=== PATIENT | female | born 1990 | race Two or more races ===

== ENCOUNTER 2018-05-22 16:45 | Emergency (ER) | payer MEDICAID ==
[2018-05-22] MEDS ORDERED: NORMAL SALINE 1000 ML 1,000 ML IV ONE (17:04)
[2018-05-22] MEDS ORDERED: ONDANSETRON HCL INJ/PF 4 MG/2 ML SDV IV ONE ×2 (17:04→19:03)
[2018-05-22] MEDS ORDERED: KETOROLAC TROMETHAMINE INJ/PF 30 MG/1 ML SDV IV ONE (17:04)
--- NOTE | 2018-05-22 17:06 | ER Document Report ---
ED Medical Screen (RME) - General Chief Complaint: Diarrhea Stated Complaint: DIARRHEA Time Seen by Provider: 05/22/18 16:58 Notes: 28 years old female presents today with 4 day history of multiple loose stools, described as brown to green in color. Associated with nausea no vomiting. Had some abdominal cramps no pain. Denies any fever chills or other constitutional symptoms. Denies any dysuria frequency urgency. Denies any vaginal discharges. On examination-morbidly obese seems to be dehydrated. TRAVEL OUTSIDE OF THE [place] IN LAST 30 DAYS: No - Related Data Allergies/Adverse Reactions: oxycodone Allergy (Verified 05/22/18 16:48) Penicillins Allergy (Verified 05/22/18 16:48) Past Medical History - Social History Frequency of alcohol use: None Drug Abuse: None Renal/ Medical History: Denies: Hx Peritoneal Dialysis Psychiatric Medical History: Reports: Hx Depression Past Surgical History: Reports: Hx Appendectomy, Hx Tonsillectomy Physical Exam - Vital signs Vitals: Temp Pulse Resp BP Pulse Ox 99.2 F 91 18 127/80 H 98 05/22/18 16:49 05/22/18 16:49 05/22/18 16:49 05/22/18 16:49 05/22/18 16:49 Course - Vital Signs Vital signs: Temp Pulse Resp BP Pulse Ox 99.2 F 91 18 127/80 H 98 05/22/18 16:49 05/22/18 16:49 05/22/18 16:49 05/22/18 16:49 05/22/18 16:49 Doctor's Discharge - Discharge Referrals: KEVAN ALEJANDRE FNP-C [Primary Care Provider] - Follow up as needed
[2018-05-22 17:56] LABS: APPEARANCE,URINE SLIGHTLY-CLOUDY; BILIRUBIN,URINE NEGATIVE (NEGATIVE); COLOR,URINE YELLOW; GLUCOSE, URINE NEGATIVE (NEGATIVE); KETONES,URINE NEGATIVE (NEGATIVE); LEUKOCYTE ESTERASE,URINE NEGATIVE (NEGATIVE); NITRITE,URINE NEGATIVE (NEGATIVE); PROTEIN,URINE NEGATIVE (NEGATIVE); URINE SPECIFIC GRAVITY 1.017
[2018-05-22 17:57] LABS: ABSOLUTE BASOPHILS # (AUTO) 0.1 10^3/uL (0.0-0.2); ABSOLUTE EOSINOPHILS # (AUTO) 0.4 10^3/uL (0.0-0.6); ABSOLUTE LYMPHOCYTES (AUTO) 2.5 10^3/uL (0.5-4.7); ABSOLUTE MONOCYTES (AUTO) 0.7 10^3/uL (0.1-1.4); ABSOLUTE NEUT (AUTO) 5.2 10^3/uL (1.7-8.2); BASOPHILS % (AUTO) 0.6 % (0-2); EOSINOPHILS % (AUTO) 4.4 % (0-6); HEMATOCRIT 42.8 % (36.0-47.0); HEMOGLOBIN 14.4 g/dL (12.0-15.5); LYMPHOCYTES % (AUTO) 28.4 % (13-45); MEAN CORPUSCULAR HEMOGLOBIN 28.9 pg (27.0-33.4); MEAN CORPUSCULAR HGB CONC 33.8 g/dL (32.0-36.0); MEAN CORPUSCULAR VOLUME 86 fl (80-97); MONOCYTES % (AUTO) 7.6 % (3-13); PLATELET COUNT 374 10^3/uL (150-450); RED BLOOD COUNT 4.99 10^6/uL (3.72-5.28); RED CELL DISTRIBUTION WIDTH 13.9 % (11.5-14.0); TOTAL CELLS COUNTED % (AUTO) 100 %; WHITE BLOOD COUNT 8.9 10^3/uL (4.0-10.5)
[2018-05-22 18:14] LABS: ALANINE AMINOTRANSFERASE 117 U/L (9-52); ALBUMIN 4.7 g/dL (3.5-5.0); ALKALINE PHOSPHATASE 112 U/L (38-126); ANION GAP 11 (5-19); ASPARTATE AMINO TRANSFERASE 95 U/L (14-36); BILIRUBIN,DIRECT 0.3 mg/dL (0.0-0.4); BILIRUBIN,TOTAL 0.4 mg/dL (0.2-1.3); BLOOD UREA NITROGEN 6 mg/dL (7-20); CALCIUM 9.5 mg/dL (8.4-10.2); CARBON DIOXIDE 30 mmol/L (22-30); CHLORIDE 102 mmol/L (98-107); GLUCOSE 87 mg/dL (75-110); LIPASE 94.5 U/L (23-300); POTASSIUM 3.7 mmol/L (3.6-5.0); SODIUM 142.6 mmol/L (137-145); TOTAL PROTEIN 8.8 g/dL (6.3-8.2)
--- NOTE | 2018-05-22 18:21 | RADIOLOGY REPORT (SQ) ---
EXAM DESCRIPTION: ACUTE ABDOMEN SERIES COMPLETED DATE/TIME: 05/22/2018 6:04 pm REASON FOR STUDY: Acute abdominal pain COMPARISON: None. NUMBER OF VIEWS: Three views. TECHNIQUE: Frontal chest, supine abdomen and upright/ abdomen radiographic images acquired. LIMITATIONS: None. FINDINGS: CHEST: Lungs clear of infiltrates. FREE AIR: None. No abnormal gas collections. BOWEL GAS PATTERN: Nonobstructive pattern. No dilated loops or air fluid levels. CALCIFICATIONS: No suspicious calcifications. HARDWARE: None in the abdomen. SOFT TISSUES: No gross mass or suggestion of organomegaly. BONES: No acute fracture. No worrisome bone lesions. OTHER: No other significant finding. IMPRESSION: NO RADIOGRAPHIC EVIDENCE FOR ACUTE ABDOMINAL DISEASE. TECHNICAL DOCUMENTATION: JOB ID: [id number] [employer]- All Rights Reserved Reading location - IP/workstation name: [email or web address]
[2018-05-22] MEDS ORDERED: MORPHINE SULFATE 10 MG/ML INJ IV ONE (19:03)
--- NOTE | 2018-05-22 19:54 | RADIOLOGY REPORT (SQ) ---
EXAM DESCRIPTION: U/S ABDOMEN LIMITED W/O DOP COMPLETED DATE/TIME: 05/22/2018 7:45 pm REASON FOR STUDY: RUQ pain COMPARISON: None. TECHNIQUE: Dynamic and static grayscale images acquired of the abdomen and recorded on PACS. Additio nal selected color Doppler and spectral images recorded. LIMITATIONS: None. FINDINGS: PANCREAS: Poorly seen LIVER: No masses. Echotexture normal. LIVER VASCULATURE: Normal directional flow of the main portal vein and hepatic veins. GALLBLADDER: No stones. Normal wall thickness. No pericholecystic fluid. ULTRASOUND-DETECTED KELLY'S SIGN: Negative. INTRAHEPATIC DUCTS AND COMMON DUCT: CBD and intrahepatic ducts normal caliber. No filling defects. INFERIOR VENA CAVA: Normal flow. AORTA: No aneurysm. RIGHT KIDNEY: Normal size. Normal echogenicity. No solid or suspicious masses. No hydronephrosis. No calcifications. PERITONEAL AND RIGHT PLEURAL SPACE: No ascites or effusions. OTHER: No other significant findings. IMPRESSION: NORMAL RIGHT UPPER QUADRANT ULTRASOUND. TECHNICAL DOCUMENTATION: JOB ID: [id number] [employer]- All Rights Reserved Reading location - IP/workstation name: [email or web address]
[2018-05-22] MEDS ORDERED: ONDANSETRON ODT 4 MG TAB (6 TAB/ER DISP) PO PRN (20:41)
--- NOTE | 2018-05-22 20:49 | ER Document Report ---
ED GI/ - General Chief Complaint: Diarrhea Stated Complaint: DIARRHEA Time Seen by Provider: 05/22/18 16:58 TRAVEL OUTSIDE OF THE [place] IN LAST 30 DAYS: No - Related Data Allergies/Adverse Reactions: oxycodone Allergy (Verified 05/22/18 16:48) Penicillins Allergy (Verified 05/22/18 16:48) Past Medical History - Social History Smoking Status: Never Smoker Frequency of alcohol use: None Drug Abuse: None Patient has suicidal ideation: No Patient has homicidal ideation: No Renal/ Medical History: Denies: Hx Peritoneal Dialysis Psychiatric Medical History: Reports: Hx Depression Past Surgical History: Reports: Hx Appendectomy, Hx Tonsillectomy Physical Exam - Vital signs Vitals: Temp Pulse Resp BP Pulse Ox 99.2 F 91 18 127/80 H 98 05/22/18 16:49 05/22/18 16:49 05/22/18 16:49 05/22/18 16:49 05/22/18 16:49 Course - Vital Signs Vital signs: Temp Pulse Resp BP Pulse Ox 99.2 F 91 18 127/80 H 98 05/22/18 16:49 05/22/18 16:49 05/22/18 16:49 05/22/18 16:49 05/22/18 16:49 - Laboratory Result Diagrams: 05/22/18 17:24 05/22/18 17:24 Laboratory results interpreted by me: 05/22/18 05/22/18 17:24 17:24 BUN 6 L AST 95 H ALT 117 H Total Protein 8.8 H Urine Urobilinogen 2.0 H Discharge - Discharge Clinical Impression: Elevated LFTs Diarrhea Qualifiers: Diarrhea type: unspecified type Qualified Code(s): R19.7 - Diarrhea, unspecified Condition: Stable Disposition: HOME, SELF-CARE Additional Instructions: Abdominal Pain There are many causes of abdominal pain. Pain can mean a serious problem requiring surgery (such as appendicitis). It can also be an innocent problem that goes away on its own (such as a viral infection). Often, time must pass to determine the cause of pain. The physician does not feel that hospitalization is necessary, at present. Things may change within the next 24 hours. Call the doctor or come back for re- examination if any problems occur, such as: (1) Pain that becomes more severe, steady, or becomes concentrated in one specific area. Also, pain that is more severe with movement or coughing. (2) Vomiting that persists or becomes more frequent. (3) Blood in the vomitus, urine, or bowel movements. Blood in the stool may have a tarry or black appearance. (4) Shaking chills or fever greater than 100 degrees F. (5) The abdomen becomes more distended or swollen. (6) Bowel movements cease. (7) Failure to improve as expected. Your workup today was normal. Your gallbladder ultrasound was unremarkable. Your liver enzymes were elevated however he reports this is been a chronic issue over the last year. I am sending you with a outpatient lab slip for stool, if you continue having diarrhea please bring a sample to the lab. Keep hydrated with water or Gatorade. Follow-up with your primary care provider in the next 2-3 days for follow-up, return sooner if worsening. Prescriptions: Ondansetron [Zofran Odt 4 mg Tablet] 1 - 2 tab PO Q4H PRN #15 tab.rapdis PRN Reason: For Nausea/Vomiting Forms: Treatment of Relative/Child, Follow-Up Laboratory Testing Referrals: KEVAN ALEJANDRE FNP-C [Primary Care Provider] - Follow up as needed
[2018-05-22 20:56] VITALS: BP 111/67
== END 2018-05-22 21:15 | disposition home or self-care (01) ==
LOC: ER 16:45
DX: R19.7 Diarrhea, unspecified (principal); R79.89 Other specified abnormal findings of blood chemistry
CPT/HCPCS: 99284; 96374; 96375; 36415; 83690; 85025; 81025; 80053; 81001; 74022; 76705; J1885; J2270; J2405; J7030

== ENCOUNTER 2018-05-24 14:11 | Emergency (ER) | payer MEDICAID ==
[2018-05-24] MEDS ORDERED: NORMAL SALINE 1000 ML 1,000 ML IV PRN (15:03)
--- NOTE | 2018-05-24 15:04 | ER Document Report ---
ED Medical Screen (RME) - General Chief Complaint: GI Bleeding Stated Complaint: BLOOD IN STOOL Time Seen by Provider: 05/24/18 15:02 Notes: 28 years old female presents today with an episode of GI bleed during defecation , and the stool is dark brown to black in color. Feeling generally weak and tired. And left lower quadrant abdominal pain. Obesity, left lower quadrant tenderness TRAVEL OUTSIDE OF THE [place] IN LAST 30 DAYS: No - Related Data Allergies/Adverse Reactions: oxycodone Allergy (Verified 05/22/18 16:48) Penicillins Allergy (Verified 05/22/18 16:48) hydrocodone Adverse Reaction (Verified 05/24/18 14:14) Past Medical History Renal/ Medical History: Denies: Hx Peritoneal Dialysis Psychiatric Medical History: Reports: Hx Depression Past Surgical History: Reports: Hx Appendectomy, Hx Tonsillectomy Physical Exam - Vital signs Vitals: Temp Pulse Resp BP Pulse Ox 98.5 F 82 18 136/65 H 98 05/24/18 14:20 05/24/18 14:20 05/24/18 14:20 05/24/18 14:20 05/24/18 14:20 Course - Vital Signs Vital signs: Temp Pulse Resp BP Pulse Ox 98.5 F 82 18 136/65 H 98 05/24/18 14:20 05/24/18 14:20 05/24/18 14:20 05/24/18 14:20 05/24/18 14:20 Doctor's Discharge - Discharge Referrals: KEVAN ALEJANDRE FNP-C [Primary Care Provider] - Follow up as needed
[2018-05-24 15:43] LABS: ABSOLUTE BASOPHILS # (AUTO) 0.1 10^3/uL (0.0-0.2); ABSOLUTE EOSINOPHILS # (AUTO) 0.4 10^3/uL (0.0-0.6); ABSOLUTE LYMPHOCYTES (AUTO) 3.2 10^3/uL (0.5-4.7); ABSOLUTE MONOCYTES (AUTO) 0.7 10^3/uL (0.1-1.4); ABSOLUTE NEUT (AUTO) 5.1 10^3/uL (1.7-8.2); BASOPHILS % (AUTO) 0.7 % (0-2); EOSINOPHILS % (AUTO) 4.1 % (0-6); HEMATOCRIT 40.2 % (36.0-47.0); HEMOGLOBIN 13.6 g/dL (12.0-15.5); LYMPHOCYTES % (AUTO) 33.9 % (13-45); MEAN CORPUSCULAR HEMOGLOBIN 29.3 pg (27.0-33.4); MEAN CORPUSCULAR HGB CONC 33.9 g/dL (32.0-36.0); MEAN CORPUSCULAR VOLUME 87 fl (80-97); MONOCYTES % (AUTO) 7.7 % (3-13); PLATELET COUNT 376 10^3/uL (150-450); RED BLOOD COUNT 4.64 10^6/uL (3.72-5.28); RED CELL DISTRIBUTION WIDTH 13.7 % (11.5-14.0); SEGMENTED NEUTROPHILS % (AUTO) 53.6 % (42-78); TOTAL CELLS COUNTED % (AUTO) 100 %; WHITE BLOOD COUNT 9.6 10^3/uL (4.0-10.5)
[2018-05-24 15:56] LABS: INTERNATIONAL RATION (INR) 0.95; PROTHROMBIN TIME 13.1 SEC (11.4-15.4)
[2018-05-24 15:59] LABS: ALANINE AMINOTRANSFERASE 125 U/L (9-52); ALBUMIN 4.2 g/dL (3.5-5.0); ALKALINE PHOSPHATASE 98 U/L (38-126); ANION GAP 13 (5-19); ASPARTATE AMINO TRANSFERASE 113 U/L (14-36); BILIRUBIN,DIRECT 0.2 mg/dL (0.0-0.4); BILIRUBIN,TOTAL 0.2 mg/dL (0.2-1.3); BLOOD UREA NITROGEN 3 mg/dL (7-20); CALCIUM 9.1 mg/dL (8.4-10.2); CARBON DIOXIDE 27 mmol/L (22-30); CHLORIDE 103 mmol/L (98-107); GLUCOSE 86 mg/dL (75-110); POTASSIUM 3.6 mmol/L (3.6-5.0); SODIUM 143.2 mmol/L (137-145); TOTAL PROTEIN 7.7 g/dL (6.3-8.2)
[2018-05-24] MEDS ORDERED: FENTANYL CITRATE INJ/PF 100 MCG/2 ML AMPUL IV ONE (16:32)
--- NOTE | 2018-05-24 16:35 | ER Document Report ---
ED GI Bleed / Rectal Pain - General Chief Complaint: GI Bleeding Stated Complaint: BLOOD IN STOOL Time Seen by Provider: 05/24/18 15:02 Mode of Arrival: Ambulatory Information source: Patient Notes: Patient reports diarrhea for the past 5 days. Patient reports having 5 diarrhea bowel movements today with 1 of them having blood in it. Patient saw her primary doctor today who advised her to come here for further evaluation. Patient states she was evaluated here 2 days ago for this complaint. Patient complains of left lower pelvic abdominal pain. Patient also complains of feeling weak and tired. TRAVEL OUTSIDE OF THE [place] IN LAST 30 DAYS: No - HPI Patient complains to provider of: Bright red bld from rect.. No: Rectal pain, Vomiting blood Onset: This afternoon Quality of pain: Achy, Sharp Pain Level: 3 Emesis description: Blood tinged Associated symptoms: Abdominal pain Exacerbated by: Denies Relieved by: Denies Similar symptoms previously: No Recently seen / treated by doctor: Yes - Related Data Allergies/Adverse Reactions: oxycodone Allergy (Verified 05/22/18 16:48) Penicillins Allergy (Verified 05/22/18 16:48) hydrocodone Adverse Reaction (Verified 05/24/18 14:14) Past Medical History - General Information source: Patient - Social History Smoking Status: Never Smoker Frequency of alcohol use: None Drug Abuse: None Occupation: None Family History: Reviewed & Not Pertinent Patient has suicidal ideation: No Patient has homicidal ideation: No Endocrine Medical History: Reports: Hx Graves' Disease Renal/ Medical History: Denies: Hx Peritoneal Dialysis GI Medical History: Reports: Other - Fatty liver Psychiatric Medical History: Reports: Hx Depression, Hx Post Traumatic Stress Disorder Past Surgical History: Reports: Hx Appendectomy, Hx Tonsillectomy Review of Systems - Review of Systems Constitutional: No symptoms reported. denies: Fever, Recent illness EENT: No symptoms reported Cardiovascular: No symptoms reported. denies: Chest pain Respiratory: No symptoms reported. denies: Cough, Short of breath Gastrointestinal: Abdominal pain, Diarrhea, Blood streaked bowels. denies: Vomiting, Constipation Genitourinary: No symptoms reported. denies: Dysuria, Flank pain Female Genitourinary: No symptoms reported. denies: , Vaginal discharge , Vaginal bleeding Musculoskeletal: No symptoms reported. denies: Back pain Skin: No symptoms reported Hematologic/Lymphatic: No symptoms reported Neurological/Psychological: No symptoms reported. denies: Headaches Physical Exam - Vital signs Vitals: Temp Pulse Resp BP Pulse Ox 98.5 F 82 18 136/65 H 98 05/24/18 14:20 05/24/18 14:20 05/24/18 14:20 05/24/18 14:20 05/24/18 14:20 - General General appearance: Appears well, Alert In distress: None - HEENT Head: Normocephalic Eyes: Normal Conjunctiva: Normal Nasal: Normal Mouth/Lips: Normal Neck: Normal, Supple. No: Lymphadenopathy - Respiratory Respiratory status: No respiratory distress Chest status: Nontender Breath sounds: Normal. No: Rales, Rhonchi, Stridor, Wheezing Chest palpation: Normal - Cardiovascular Rhythm: Regular Heart sounds: S1 appreciated, S2 appreciated Murmur: No - Abdominal Inspection: Morbidly Obese Distension: No distension Bowel sounds: Normal Tenderness: Tender - LLQ Organomegaly: No organomegaly - Rectal Tenderness: No Stool: See lab result Notes: RN Nga as standby - Back Back: Normal, Nontender. No: CVA tenderness - Extremities General upper extremity: Normal inspection, Normal strength General lower extremity: Normal inspection, Normal strength - Neurological Neuro grossly intact: Yes Cognition: Normal Shreve Coma Scale Eye Opening: Spontaneous Melony Coma Scale Verbal: Oriented Shreve Coma Scale Motor: Obeys Commands Melony Coma Scale Total: 15 - Psychological Associated symptoms: Normal affect, Normal mood - Skin Skin Temperature: Warm Skin Moisture: Dry Skin Color: Normal Course - Re-evaluation Re-evalutation: 05/24/18 18:45 Patient without any active rectal bleeding. Hemoccult negative. Stool specimen obtained and is pending culture at this time. CT scan report reviewed , no concern for ruptured diverticulum, abscess, or fistula at this time. Diagnostic evaluation essentially benign with the exception of mildly elevated liver function tests. Patient with a known history of fatty liver disease for which she is followed by her primary care provider. Patient encouraged to follow-up with corporation secretary for further evaluation. Patient presents with abdominal pain without signs of peritonitis or other life-threatening or serious etiology. Patient appears stable for discharge and has been instructed to return immediately if the symptoms worsen in any way, or in 8-12 hours if not improved for reevaluation. The patient has been instructed to return if the symptoms worsen or change in any way. - Vital Signs Vital signs: Temp Pulse Resp BP Pulse Ox 98.5 F 82 23 H 105/59 L 97 05/24/18 14:20 05/24/18 14:20 05/24/18 17:01 05/24/18 17:01 05/24/18 17:01 - Laboratory Result Diagrams: 05/24/18 15:15 05/24/18 15:15 Laboratory results interpreted by me: 05/24/18 15:15 BUN 3 L AST 113 H ALT 125 H 05/24/18 18:45 Labs- Entire Visit 05/24/18 05/24/18 05/24/18 15:15 15:15 15:15 WBC 9.6 RBC 4.64 Hgb 13.6 Hct 40.2 MCV 87 MCH 29.3 MCHC 33.9 RDW 13.7 Plt Count 376 Seg Neutrophils % 53.6 Lymphocytes % 33.9 Monocytes % 7.7 Eosinophils % 4.1 Basophils % 0.7 Absolute Neutrophils 5.1 Absolute Lymphocytes 3.2 Absolute Monocytes 0.7 Absolute Eosinophils 0.4 Absolute Basophils 0.1 PT 13.1 INR 0.95 Sodium 143.2 Potassium 3.6 Chloride 103 Carbon Dioxide 27 Anion Gap 13 BUN 3 L Creatinine 0.62 Est GFR ( Amer) > 60 Est GFR (Non-Af Amer) > 60 Glucose 86 Calcium 9.1 Total Bilirubin 0.2 Direct Bilirubin 0.2 Neonat Total Bilirubin Not Reportable Neonat Direct Bilirubin Not Reportable Neonat Indirect Bili Not Reportable AST 113 H ALT 125 H Alkaline Phosphatase 98 Total Protein 7.7 Albumin 4.2 Serum HCG, Qual Stool Occult Blood Blood Type Antibody Screen 05/24/18 05/24/18 05/24/18 15:15 15:15 16:28 WBC RBC Hgb Hct MCV MCH MCHC RDW Plt Count Seg Neutrophils % Lymphocytes % Monocytes % Eosinophils % Basophils % Absolute Neutrophils Absolute Lymphocytes Absolute Monocytes Absolute Eosinophils Absolute Basophils PT INR Sodium Potassium Chloride Carbon Dioxide Anion Gap BUN Creatinine Est GFR ( Amer) Est GFR (Non-Af Amer) Glucose Calcium Total Bilirubin Direct Bilirubin Neonat Total Bilirubin Neonat Direct Bilirubin Neonat Indirect Bili AST ALT Alkaline Phosphatase Total Protein Albumin Serum HCG, Qual NEGATIVE Stool Occult Blood NEGATIVE Blood Type O POSITIVE Antibody Screen NEGATIVE - Diagnostic Test Radiology reviewed: Reports reviewed Discharge - Discharge Clinical Impression: Elevated LFTs Diarrhea Qualifiers: Diarrhea type: unspecified type Qualified Code(s): R19.7 - Diarrhea, unspecified Condition: Stable Disposition: HOME, SELF-CARE Instructions: Abdominal Pain ([facility]), Diarrhea, Nonspecific ([facility]), Liver Function Abnormality ([facility]) Additional Instructions: Return immediately for any new or worsening symptoms Followup with your primary care provider, call tomorrow to make a followup appointment Follow-up with a corporation secretary for further evaluation. Call Sunday for an appointment Prescriptions: Loperamide HCl [Loperamide] 2 mg PO QID PRN #12 capsule PRN Reason: Referrals: KEVAN ALEJANDRE FNP-C [Primary Care Provider] - Follow up as needed JADE VILCHIS MD [ACTIVE STAFF] - Follow up in 3-5 days
[2018-05-24] MEDS ORDERED: ONDANSETRON HCL INJ/PF 4 MG/2 ML SDV IV ONE (16:52)
[2018-05-24 18:11] VITALS: BP 105/59
--- NOTE | 2018-05-24 18:31 | RADIOLOGY REPORT (SQ) ---
EXAM DESCRIPTION: CT ABD/PELVIS WITH IV ORAL COMPLETED DATE/TIME: 05/24/2018 6:19 pm REASON FOR STUDY: GI bleed rule out diverticular bleed COMPARISON: None. TECHNIQUE: CT scan of the abdomen and pelvis performed with intravenous and oral contrast using michael jasiel scanning technique with dynamic intravenous contrast injection. Images reviewed with lung, soft t issue, and bone windows. Reconstructed coronal and sagittal MPR images reviewed. Delayed images for e valuation of the urinary system also acquired. All images stored on PACS. All CT scanners at this facility use dose modulation, iterative reconstruction, and/or weight based d osing when appropriate to reduce radiation dose to as low as reasonably achievable (ALARA). [facility]: Dose Right [facility]: CareDose [facility]: Dose Right [facility]: Teradose 4D [facility]: Advice Wallet CONTRAST TYPE AND DOSE: contrast/concentration: Isovue 350.00 mg/ml; Total Contrast Delivered: 100.0 ml; Total Saline Delivered: 70.0 ml RENAL FUNCTION: GFR > 60. RADIATION DOSE: CT Rad equipment meets quality standard of care and radiation dose reduction techniq ues were employed. CTDIvol: 21.0 - 21.1 mGy. DLP: 2408 mGy-cm. . LIMITATIONS: None. FINDINGS: LOWER CHEST: No significant findings. No nodules or infiltrates. LIVER: Normal size. No masses. No dilated ducts. SPLEEN: Normal size. No focal lesions. PANCREAS: No masses. No significant calcifications. No adjacent inflammation or peripancreatic fluid collections. Pancreatic duct not dilated. GALLBLADDER: No identified stones by CT criteria. No inflammatory changes to suggest cholecystitis. ADRENAL GLANDS: No significant masses or asymmetry. RIGHT KIDNEY AND URETER: No solid masses. No significant calcifications. No hydronephrosis or hyd roureter. LEFT KIDNEY AND URETER: No solid masses. No significant calcifications. No hydronephrosis or hydr oureter. AORTA AND VESSELS: No aneurysm. No dissection. Renal arteries, SMA, celiac without stenosis. RETROPERITONEUM: No retroperitoneal adenopathy, hemorrhage or masses. BOWEL AND PERITONEAL CAVITY: No obstruction. No visualized masses. No free fluid. No inflammatory ch anges or thickening of bowel wall. Oral Contrast obscures any active bleeding site. APPENDIX: Normal. PELVIS: Physiologic ovarian cysts. Normal bladder. ABDOMINAL WALL: No masses. No hernias. BONES: No significant or acute findings. OTHER: No other significant finding. IMPRESSION: NO SIGNIFICANT OR ACUTE FINDINGS IN THE ABDOMEN OR PELVIS. Oral contrast obscures any active bleeding site. TECHNICAL DOCUMENTATION: JOB ID: [id number] Quality ID # [id number]: Final reports with documentation of one or more dose reduction techniques (e.g., Au tomated exposure control, adjustment of the mA and/or kV according to patient size, use of iterative reconstruction technique) 2010 [employer]- All Rights Reserved Reading location - IP/workstation name: [email or web address]
[2018-05-24] MEDS ORDERED: LOPERAMIDE HCL 2 MG CAPSULE PO ONE (18:40)
== END 2018-05-24 19:20 | disposition home or self-care (01) ==
LOC: ER 14:11
DX: R19.7 Diarrhea, unspecified (principal); K92.1 Melena; R10.2 Pelvic and perineal pain; R53.1 Weakness; R53.83 Other fatigue; R10.814 Left lower quadrant abdominal tenderness; R79.89 Other specified abnormal findings of blood chemistry; Z87.19 Personal history of other diseases of the digestive system; Z88.5 Allergy status to narcotic agent; Z88.0 Allergy status to penicillin
CPT/HCPCS: 99284; 96361; 96374; 96375; 86900; 86901; 36415; 87045; 87205; 86850; 84703; 85025; 85610; 82272; 80053; 87493; 74177; J3010; J3490; J2405; J7030

== ENCOUNTER 2018-11-18 18:38 | Emergency (ER) | payer MEDICAID ==
--- NOTE | 2018-11-18 20:50 | ER Document Report ---
ED General - General Chief Complaint: Abdominal Pain Stated Complaint: ABDOMINAL PAIN Time Seen by Provider: 11/18/18 20:50 Primary Care Provider: KEVAN ALEJANDRE FNP-C [Primary Care Provider] - Follow up as needed Notes: Patient is a 28-year-old female with recent gastric bypass surgery in October of this year that presents to the emergency department for chief complaint of abdominal pain. Patient states the pain started a few weeks ago, and has been persistent and seemingly worsening over time. The pain is located in the right upper quadrant, and they currently rate the pain as a 7 out of 10, and described as aching, and constant. They have had associated nausea, vomiting, and decreased appetite. She was recently seen at [facility], at the time for a follow-up appointment, and was seen in the emergency department, had CT imaging because she was having similar pain, was diagnosed with epiploic appendage otitis, her symptoms improved briefly, and then came back at which is what brought her to the emergency department today. The pain is mainly in the right upper quadrant. Past Medical History: History of cirrhosis from fatty liver disease, thyroid disease, SVT, obesity Past Surgical History: Gastric bypass surgery, appendectomy Social History: Denies tobacco, alcohol or drug use. Family History: Reviewed and noncontributory for presenting illness Allergies: Reviewed, see documented allergy list. REVIEW OF SYSTEMS: Other than noted above, the 12 point review of systems was reviewed with the patient and were negative, all pertinent findings are included in the HPI. PHYSICAL EXAMINATION: Vital signs reviewed, nursing noted reviewed. GENERAL: Obese female, appears uncomfortable HEAD: Atraumatic, normocephalic. EYES: Eyes appear normal, extraocular movements intact, sclera anicteric, conjunctiva are normal. ENT: nares patent, oropharynx clear without exudates. Moist mucous membranes. NECK: Normal range of motion, supple without lymphadenopathy LUNGS: Breath sounds clear to auscultation bilaterally and equal. No wheezes rales or rhonchi. HEART: Regular rate and rhythm without murmurs ABDOMEN: Soft, obese, normal bowel sounds, tenderness with palpation in the right upper quadrant, No rebound, guarding, or rigidity. No masses appreciated. EXTREMITIES: Nontender, good range of motion, no pitting or edema. NEUROLOGICAL: No focal neurological deficits. Moves all extremities spontaneously Motor and sensory grossly intact on exam. PSYCH: Normal mood, normal affect. SKIN: Warm, Dry, normal turgor, no rashes or lesions noted on exposed skin TRAVEL OUTSIDE OF THE [place] IN LAST 30 DAYS: No - Related Data Allergies/Adverse Reactions: oxycodone Allergy (Verified 05/22/18 16:48) Penicillins Allergy (Verified 05/22/18 16:48) hydrocodone Adverse Reaction (Verified 05/24/18 14:14) Past Medical History - Social History Smoking Status: Never Smoker Family History: Reviewed & Not Pertinent Endocrine Medical History: Reports: Hx Graves' Disease Renal/ Medical History: Denies: Hx Peritoneal Dialysis Psychiatric Medical History: Reports: Hx Depression, Hx Post Traumatic Stress Disorder Past Surgical History: Reports: Hx Appendectomy, Hx Tonsillectomy Physical Exam - Vital signs Vitals: Temp Pulse Resp BP Pulse Ox 98.7 F 92 16 108/69 97 11/18/18 18:46 11/18/18 18:46 11/18/18 18:46 11/18/18 18:46 11/18/18 18:46 Course - Re-evaluation Re-evalutation: Patient seen and examined vital signs reviewed. Laboratory data and imaging were ordered as appropriate for the patient's presenting symptoms and complaint, with consideration of any critical or life threatening conditions that may be associated with their obtained history and exam as noted above. Patient was treated with IV fluids, Dilaudid, and Zofran for nausea Results were reviewed when available and demonstrated mild transaminitis, blood work otherwise unremarkable, UA negative, right upper quadrant ultrasound was ordered and demonstrated The patient was re-evaluated and was stable and much improved Evaluation was most consistent with abdominal pain, unclear cause, possible and likely pain still resulting from epiploic appendicitis, patient given a prescription for Zofran 4 mg to take at home for nausea, and to maintain hydration at home advised to follow-up with primary care. Results were discussed with the patient at this point, after careful consideration I feel that that patient can be discharged from the emergency department, the patient was educated treatments and reasons to return to the emergency department based on their presumed diagnosis as noted above, they were advised to followup with a primary care physician in 2-3 days. Patient was agre eable to plan of care. *Note is created using voice recognition software and may contain spelling, syntax or grammatical errors. Laboratory 11/18/18 11/18/18 11/18/18 20:55 20:55 20:55 WBC 8.7 RBC 4.69 Hgb 13.7 Hct 39.8 MCV 85 MCH 29.2 MCHC 34.5 RDW 14.6 H Plt Count 357 Seg Neutrophils % 45.7 Lymphocytes % 40.0 Monocytes % 8.2 Eosinophils % 5.7 Basophils % 0.4 Absolute Neutrophils 4.0 Absolute Lymphocytes 3.5 Absolute Monocytes 0.7 Absolute Eosinophils 0.5 Absolute Basophils 0.0 Sodium 140.2 Potassium 3.7 Chloride 101 Carbon Dioxide 29 Anion Gap 10 BUN 7 Creatinine 0.50 L Est GFR ( Amer) > 60 Est GFR (Non-Af Amer) > 60 Glucose 88 Calcium 9.8 Total Bilirubin 0.4 Direct Bilirubin 0.1 Neonat Total Bilirubin Not Reportable Neonat Direct Bilirubin Not Reportable Neonat Indirect Bili Not Reportable AST 60 H ALT 64 H Alkaline Phosphatase 99 Total Protein 7.3 Albumin 4.4 Lipase 201.8 Urine Color YELLOW Urine Appearance SLIGHTLY-CLOUDY Urine pH 7.0 Ur Specific [place] 1.024 Urine Protein NEGATIVE Urine Glucose (UA) NEGATIVE Urine Ketones 80 H Urine Blood NEGATIVE Urine Nitrite NEGATIVE Urine Bilirubin NEGATIVE Urine Urobilinogen 2.0 H Ur Leukocyte Esterase NEGATIVE Urine WBC (Auto) 3 Urine RBC (Auto) 2 Squamous Epi Cells Auto 2 Urine Mucus (Auto) MANY Urine Ascorbic Acid 40 H Urine HCG, Qual NEGATIVE Abdomen Ultrasound 11/18/18 21:12 IMPRESSION: No gallstones or cholecystitis. - Vital Signs Vital signs: Temp Pulse Resp BP Pulse Ox 98.7 F 92 16 108/69 97 11/18/18 18:46 11/18/18 18:46 11/18/18 18:46 11/18/18 18:46 11/18/18 18:46 - Laboratory Result Diagrams: 11/18/18 20:55 11/18/18 20:55 Laboratory results interpreted by me: 11/18/18 11/18/18 11/18/18 20:55 20:55 20:55 RDW 14.6 H Creatinine 0.50 L AST 60 H ALT 64 H Urine Ketones 80 H Urine Urobilinogen 2.0 H Urine Ascorbic Acid 40 H Discharge - Discharge Clinical Impression: Abdominal pain Qualifiers: Abdominal location: unspecified location Qualified Code(s): R10.9 - Unspecified abdominal pain Condition: Stable Disposition: HOME, SELF-CARE Instructions: Abdominal Pain ([facility]) Additional Instructions: Please take the Zofran every 4-6 hours if needed for nausea and vomiting, use a bland diet over the next several days, your symptoms should improve and should not last much more than 2 weeks total, please follow-up with your primary care physician in the next 3-5 days. Prescriptions: Ondansetron [Zofran Odt 4 mg Tablet] 1 tab PO Q8H PRN #15 tab.rapdis PRN Reason: For Nausea/Vomiting Referrals: KEVAN ALEJANDRE FNP-C [Primary Care Provider] - Follow up in 3-5 days
[2018-11-18 21:06] LABS: ABSOLUTE EOSINOPHILS # (AUTO) 0.5 10^3/uL (0.0-0.6); ABSOLUTE LYMPHOCYTES (AUTO) 3.5 10^3/uL (0.5-4.7); ABSOLUTE MONOCYTES (AUTO) 0.7 10^3/uL (0.1-1.4); BASOPHILS % (AUTO) 0.4 % (0-2); EOSINOPHILS % (AUTO) 5.7 % (0-6); HEMATOCRIT 39.8 % (36.0-47.0); HEMOGLOBIN 13.7 g/dL (12.0-15.5); MEAN CORPUSCULAR HEMOGLOBIN 29.2 pg (27.0-33.4); MEAN CORPUSCULAR HGB CONC 34.5 g/dL (32.0-36.0); MEAN CORPUSCULAR VOLUME 85 fl (80-97); MONOCYTES % (AUTO) 8.2 % (3-13); PLATELET COUNT 357 10^3/uL (150-450); RED BLOOD COUNT 4.69 10^6/uL (3.72-5.28); RED CELL DISTRIBUTION WIDTH 14.6 % (11.5-14.0); SEGMENTED NEUTROPHILS % (AUTO) 45.7 % (42-78); TOTAL CELLS COUNTED % (AUTO) 100 %; WHITE BLOOD COUNT 8.7 10^3/uL (4.0-10.5)
[2018-11-18] MEDS ORDERED: HYDROMORPHONE HCL INJ/PF 2 MG/ML AMPULE IV ONE (21:13)
[2018-11-18] MEDS ORDERED: NORMAL SALINE 1000 ML 1,000 ML IV ONE (21:13)
[2018-11-18] MEDS ORDERED: ONDANSETRON HCL INJ/PF 4 MG/2 ML SDV IV ONE (21:13)
[2018-11-18 21:18] LABS: ALANINE AMINOTRANSFERASE 64 U/L (9-52); ALBUMIN 4.4 g/dL (3.5-5.0); ALKALINE PHOSPHATASE 99 U/L (38-126); ANION GAP 10 (5-19); ASPARTATE AMINO TRANSFERASE 60 U/L (14-36); BILIRUBIN,DIRECT 0.1 mg/dL (0.0-0.4); BILIRUBIN,TOTAL 0.4 mg/dL (0.2-1.3); BLOOD UREA NITROGEN 7 mg/dL (7-20); CALCIUM 9.8 mg/dL (8.4-10.2); CARBON DIOXIDE 29 mmol/L (22-30); CHLORIDE 101 mmol/L (98-107); GLUCOSE 88 mg/dL (75-110); LIPASE 201.8 U/L (23-300); POTASSIUM 3.7 mmol/L (3.6-5.0); SODIUM 140.2 mmol/L (137-145); TOTAL PROTEIN 7.3 g/dL (6.3-8.2)
[2018-11-18 21:21] LABS: APPEARANCE,URINE SLIGHTLY-CLOUDY; BILIRUBIN,URINE NEGATIVE (NEGATIVE); COLOR,URINE YELLOW; GLUCOSE, URINE NEGATIVE (NEGATIVE); KETONES,URINE 80 mg/dL (NEGATIVE); LEUKOCYTE ESTERASE,URINE NEGATIVE (NEGATIVE); NITRITE,URINE NEGATIVE (NEGATIVE); PROTEIN,URINE NEGATIVE (NEGATIVE); URINE SPECIFIC GRAVITY 1.024
--- NOTE | 2018-11-18 23:10 | RADIOLOGY REPORT (SQ) ---
US ABDOMEN LIMITED HISTORY: Right upper quadrant pain. COMPARISON: None. TECHNIQUE: Grayscale and color Doppler imaging of the right upper quadrant was performed. Limited study due to patient's body habitus. FINDINGS: The liver has normal echotexture without focal lesion identified. The main portal vein has normal hepatopetal flow. No shadowing gallstones are seen. No pericholecystic fluid or gallbladder wall thickening. The common bile duct is normal caliber. The pancreas is unremarkable. No hydronephrosis or shadowing renal stones are identified. The right kidney measures 11.9 cm in length. The visualized portions of the IVC and aorta are patent. IMPRESSION: No gallstones or cholecystitis.
[2018-11-18] MEDS ORDERED: ONDANSETRON ODT 4 MG TAB (6 TAB/ER DISP) PO PRN (23:18)
[2018-11-18 23:34] VITALS: BP 110/73
== END 2018-11-18 23:35 | disposition home or self-care (01) ==
LOC: ER 18:38
DX: R10.9 Unspecified abdominal pain (principal); R10.11 Right upper quadrant pain
CPT/HCPCS: 99284; 36415; 83690; 85025; 81025; 80053; 81001; 76705; J1170; J2405; J7030

== ENCOUNTER 2018-11-24 17:18 | Emergency (ER) | payer MEDICAID ==
[2018-11-24] MEDS ORDERED: MECLIZINE HCL 25 MG TABLET PO ONE (18:11)
[2018-11-24 19:00] LABS: ABSOLUTE EOSINOPHILS # (AUTO) 0.4 10^3/uL (0.0-0.6); ABSOLUTE LYMPHOCYTES (AUTO) 2.7 10^3/uL (0.5-4.7); ABSOLUTE MONOCYTES (AUTO) 0.5 10^3/uL (0.1-1.4); ABSOLUTE NEUT (AUTO) 3.7 10^3/uL (1.7-8.2); BASOPHILS % (AUTO) 0.5 % (0-2); HEMATOCRIT 39.5 % (36.0-47.0); HEMOGLOBIN 13.3 g/dL (12.0-15.5); LYMPHOCYTES % (AUTO) 36.4 % (13-45); MEAN CORPUSCULAR HEMOGLOBIN 28.9 pg (27.0-33.4); MEAN CORPUSCULAR HGB CONC 33.8 g/dL (32.0-36.0); MEAN CORPUSCULAR VOLUME 86 fl (80-97); MONOCYTES % (AUTO) 7.2 % (3-13); PLATELET COUNT 356 10^3/uL (150-450); RED BLOOD COUNT 4.61 10^6/uL (3.72-5.28); RED CELL DISTRIBUTION WIDTH 14.9 % (11.5-14.0); SEGMENTED NEUTROPHILS % (AUTO) 50.9 % (42-78); TOTAL CELLS COUNTED % (AUTO) 100 %; WHITE BLOOD COUNT 7.3 10^3/uL (4.0-10.5)
[2018-11-24 19:09] LABS: APPEARANCE,URINE CLOUDY; BILIRUBIN,URINE SMALL (NEGATIVE); GLUCOSE, URINE NEGATIVE (NEGATIVE); KETONES,URINE 80 mg/dL (NEGATIVE); LEUKOCYTE ESTERASE,URINE TRACE (NEGATIVE); NITRITE,URINE NEGATIVE (NEGATIVE); PROTEIN,URINE 30 mg/dL (NEGATIVE); URINE SPECIFIC GRAVITY 1.031
[2018-11-24 19:10] LABS: COLOR,URINE DARK YELLOW
[2018-11-24 19:14] LABS: ALANINE AMINOTRANSFERASE 66 U/L (9-52); ALBUMIN 4.5 g/dL (3.5-5.0); ALKALINE PHOSPHATASE 87 U/L (38-126); ANION GAP 14 (5-19); ASPARTATE AMINO TRANSFERASE 68 U/L (14-36); BILIRUBIN,DIRECT 0.2 mg/dL (0.0-0.4); BILIRUBIN,TOTAL 0.5 mg/dL (0.2-1.3); BLOOD UREA NITROGEN 5 mg/dL (7-20); CALCIUM 9.6 mg/dL (8.4-10.2); CARBON DIOXIDE 25 mmol/L (22-30); CHLORIDE 102 mmol/L (98-107); GLUCOSE 86 mg/dL (75-110); POTASSIUM 3.8 mmol/L (3.6-5.0); SODIUM 140.9 mmol/L (137-145); TOTAL PROTEIN 7.4 g/dL (6.3-8.2)
[2018-11-24] MEDS ORDERED: NORMAL SALINE 1000 ML 1,000 ML IV ONE ×2 (19:16→19:52)
--- NOTE | 2018-11-24 19:59 | ER Document Report ---
ED General - General Chief Complaint: Dizziness Stated Complaint: DIZZY Time Seen by Provider: 11/24/18 18:06 Primary Care Provider: KEVAN ALEJANDRE FNP-C [Primary Care Provider] - Follow up as needed Notes: Patient is a 28-year-old female presents to the emergency department for generalized dizziness and nausea for the last 3 days. Patient states she did get gastric bypass surgery in October. She feels as though she has been drinking fluids but is also stating that it is hard to stay hydrated because she cannot drink as much as she used to. Patient states she was in this facility recently for generalized abdominal pain which she was told was because of her liver cirrhosis. Patient states her liver enzymes are a lot better than they were prior to her having gastric bypass surgery. Patient states she continues with a slight sore feeling in her right upper quadrant but nothing like what it was when she was here a few days ago. Patient denies dysuria, chest pain, URI symptoms, diarrhea, vaginal discharge. After treatments with meclizine and 500 cc of normal saline solution by E provider patient states she feels "a whole lot better." Past medical history: PTSD, gastric bypass, liver cirrhosis, hypothyroidism Medications: Levothyroxine, Zofran, amitriptyline Allergies: Penicillin TRAVEL OUTSIDE OF THE [place] IN LAST 30 DAYS: No - Related Data Allergies/Adverse Reactions: oxycodone Allergy (Verified 05/22/18 16:48) Penicillins Allergy (Verified 05/22/18 16:48) hydrocodone Adverse Reaction (Verified 05/24/18 14:14) Past Medical History - General Information source: Patient - Social History Smoking Status: Unknown if Ever Smoked Chew tobacco use (# tins/day): No Frequency of alcohol use: None Drug Abuse: None Family History: Reviewed & Not Pertinent Patient has suicidal ideation: No Patient has homicidal ideation: No Endocrine Medical History: Reports: Hx Graves' Disease Renal/ Medical History: Denies: Hx Peritoneal Dialysis Psychiatric Medical History: Reports: Hx Depression, Hx Post Traumatic Stress Disorder Past Surgical History: Reports: Hx Abdominal Surgery - gastric bypass, Hx Appendectomy, Hx Tonsillectomy Review of Systems - Review of Systems Constitutional: denies: Fever, Weakness EENT: See HPI Cardiovascular: See HPI Respiratory: See HPI Gastrointestinal: See HPI Genitourinary: See HPI Female Genitourinary: No symptoms reported Musculoskeletal: No symptoms reported Skin: No symptoms reported Hematologic/Lymphatic: See HPI Neurological/Psychological: See HPI Physical Exam - Vital signs Vitals: Temp Pulse Resp BP Pulse Ox 98.5 F 92 16 118/67 100 11/24/18 17:26 11/24/18 17:26 11/24/18 17:26 11/24/18 17:26 11/24/18 17:26 - Notes Notes: GENERAL: Obese alert, interacts well. No acute distress. HEAD: Normocephalic, atraumatic. EYES: Pupils equal, round, and reactive to light. Extraocular movements intact. ENT: Oral mucosa moist, tongue midline. Nares patent, TM's intact. NECK: Full range of motion. Supple. Trachea midline. LUNGS: Clear to auscultation bilaterally, no wheezes, rales, or rhonchi. No respiratory distress. HEART: Regular rate and rhythm. No murmur ABDOMEN: Soft, Non-distended. Bowel sounds present in all 4 quadrants. Very mild pain noted deep palpation right upper quadrant. EXTREMITIES: Moves all 4 extremities spontaneously. No edema, normal radial and dorsalis pedis pulses bilaterally. No cyanosis. BACK: no cervical, thoracic, lumbar midline tenderness. No saddle anesthesia, normal distal neurovascular exam. NEUROLOGICAL: Alert and oriented x3. Normal speech. cranial nerves II through XII grossly intact PSYCH: Normal affect, normal mood. SKIN: Warm, dry, normal turgor. No rashes or lesions noted. Course - Re-evaluation Re-evalutation: 11/24/18 19:57 Patient states she feels a lot better after meclizine treatment. Patient's labs revealed no signs of leukocytosis, no signs of anemia, no signs of. Patient does have a mild elevation her her transaminases. In reviewing past results these do appear to be down from past visits. Patient's urine shows no signs of infection but does have a high specific gravity at 1.031 with positive ketones. Patient was treated with 2 total liters of normal saline in the emergency department and is now denying any lightheadedness, dizziness, nausea. Discussed close follow-up with primary care provider, patient voices understanding and is stable for discharge. - Vital Signs Vital signs: Temp Pulse Resp BP Pulse Ox 98.5 F 92 16 118/67 100 11/24/18 17:26 11/24/18 17:26 11/24/18 17:26 11/24/18 17:26 11/24/18 17:26 - Laboratory Result Diagrams: 11/24/18 18:47 11/24/18 18:47 Laboratory results interpreted by me: 11/24/18 11/24/18 11/24/18 18:40 18:47 18:47 RDW 14.9 H BUN 5 L AST 68 H ALT 66 H Urine Protein 30 H Urine Ketones 80 H Urine Bilirubin SMALL H Urine Urobilinogen 4.0 H Ur Leukocyte Esterase TRACE H Urine Ascorbic Acid 20 H Discharge - Discharge Clinical Impression: Vertigo, Dehydration Condition: Stable Disposition: HOME, SELF-CARE Instructions: Vertigo ([facility]), Dizziness ([facility]), Meclizine ([facility]), Dehydration ([facility]) Additional Instructions: As we discussed you have been seen and treated in the emergency department for vertigo and dehydration. Your dizziness could be attributed to your dehydration. Please make sure he is staying well-hydrated at home using Gatorade or Pedialyte. Please also take prescription medications as prescribed. Please know that these medications may make you tired. Please immediately return to the emergency department should you have any other concerning symptoms. Prescriptions: Meclizine HCl [Antivert 25 mg Tablet] 25 mg PO TID PRN #21 tablet PRN Reason: Forms: Return to Work Referrals: KEVAN ALEJANDRE FNP-C [Primary Care Provider] - Follow up as needed
--- NOTE | 2018-11-24 20:05 | ER Document Report ---
Entered by NORMA QUINTERO SCRIBE 11/24/18 [id number] Acting as scribe for:ERASTO TIWARI DO ED Medical Screen (RME) - General Chief Complaint: Dizziness Stated Complaint: DIZZY Time Seen by Provider: 11/24/18 18:06 Primary Care Provider: KEVAN ALEJANDRE FNP-C [Primary Care Provider] - Follow up as needed Mode of Arrival: Ambulatory Information source: Patient Notes: Patient is a 28-year-old female presenting to the emergency department complaining of dizziness and nausea onset 3 days ago. Patient states that she was in the emergency department last week complaining of right sided pain which was attributed to her liver cirrhosis and was discharged home. Patient states her dizziness causes her to frequently fall over. I have greeted and performed a rapid initial assessment of this patient. A comprehensive ED assessment and evaluation of the patient, analysis of test results and completion of the medical decision making process will be conducted by additional ED providers. GENERAL: Alert, interacts well. No acute distress. HEAD: Normocephalic, Atraumatic. EYES: Pupils equal, round, and reactive to light. EOMI. ENT: Oral mucosa moist, tongue midline.Clear rhinorrhea bilaterally. Small amount of postnasal drip. Cobblestoning in the posterior oropharynx. NECK: Full range of motion. Supple. Trachea midline. No cervical lym phadenopathy. LUNGS: Clear to auscultation bilaterally, no wheezes, rales, or rhonchi. No respiratory distress. HEART: Regular rate and rhythm. No murmurs, gallops, or rubs. EXTREMITIES: Moves all four extremities spontaneously. PSYCH: Normal affect, normal mood. TRAVEL OUTSIDE OF THE [place] IN LAST 30 DAYS: No - Related Data Allergies/Adverse Reactions: oxycodone Allergy (Verified 05/22/18 16:48) Penicillins Allergy (Verified 05/22/18 16:48) hydrocodone Adverse Reaction (Verified 05/24/18 14:14) Past Medical History - Social History Chew tobacco use (# tins/day): No Frequency of alcohol use: None Drug Abuse: None Endocrine Medical History: Reports: Hx Graves' Disease Renal/ Medical History: Denies: Hx Peritoneal Dialysis Psychiatric Medical History: Reports: Hx Depression, Hx Post Traumatic Stress Disorder Past Surgical History: Reports: Hx Abdominal Surgery - gastric bypass, Hx Appendectomy, Hx Tonsillectomy Physical Exam - Vital signs Vitals: Temp Pulse Resp BP Pulse Ox 98.5 F 92 16 118/67 100 11/24/18 17:26 11/24/18 17:26 11/24/18 17:26 11/24/18 17:26 11/24/18 17:26 Course - Vital Signs Vital signs: Temp Pulse Resp BP Pulse Ox 98.5 F 92 16 118/67 100 11/24/18 17:26 11/24/18 17:26 11/24/18 17:26 11/24/18 17:26 11/24/18 17:26 Doctor's Discharge - Discharge Referrals: KEVAN ALEJANDRE, [employer]-C [Primary Care Provider] - Follow up as needed I personally performed the services described in the documentation, reviewed and edited the documentation which was dictated to the scribe in my presence, and it accurately records my words and actions.
[2018-11-24 21:07] VITALS: BP 115/58
== END 2018-11-24 21:06 | disposition home or self-care (01) ==
LOC: ER 17:18
DX: R42 Dizziness and giddiness (principal); E86.0 Dehydration; R11.0 Nausea; K74.60 Unspecified cirrhosis of liver
CPT/HCPCS: 99284; 96360; 96361; 36415; 84703; 85025; 80053; 81001; J7030

== ENCOUNTER 2018-12-25 07:34 | Day surgery (SDC) | payer MEDICAID ==
[2018-12-24 12:27] LABS: HEMATOCRIT 42.1 % (36.0-47.0); HEMOGLOBIN 14.2 g/dL (12.0-15.5); MEAN CORPUSCULAR HEMOGLOBIN 28.7 pg (27.0-33.4); MEAN CORPUSCULAR HGB CONC 33.7 g/dL (32.0-36.0); MEAN CORPUSCULAR VOLUME 85 fl (80-97); PLATELET COUNT 317 10^3/uL (150-450); RED BLOOD COUNT 4.93 10^6/uL (3.72-5.28); RED CELL DISTRIBUTION WIDTH 15.5 % (11.5-14.0); WHITE BLOOD COUNT 6.6 10^3/uL (4.0-10.5)
[2018-12-24 12:43] LABS: APPEARANCE,URINE CLOUDY; BILIRUBIN,URINE NEGATIVE (NEGATIVE); COLOR,URINE YELLOW; GLUCOSE, URINE NEGATIVE (NEGATIVE); KETONES,URINE NEGATIVE (NEGATIVE); LEUKOCYTE ESTERASE,URINE NEGATIVE (NEGATIVE); NITRITE,URINE NEGATIVE (NEGATIVE); PROTEIN,URINE NEGATIVE (NEGATIVE)
--- NOTE | 2018-12-24 16:46 | EKG REPORT ---
SEVERITY:- ABNORMAL ECG - SINUS RHYTHM BORDERLINE LEFT AXIS DEVIATION NONSPECIFIC T ABNORMALITIES, ANTERIOR LEADS : Confirmed by: Bharathi Bhat 24-Dec-2018 16:46:12
[~2018-12-25 07:34] MED LIST: LACTATED RINGERS 1000 ML IV PRN; LIDOCAINE 0.5% INJ-PF (5 MG/ML) 50 ML SDV SUBCUT PRN
[2018-12-25] MEDS ORDERED: FENTANYL CITRATE INJ/PF 100 MCG/2 ML AMPUL ONE (08:29)
[2018-12-25] MEDS ORDERED: PROPOFOL INJ 200 MG/20 ML VIAL IV ONE (08:29)
[2018-12-25] MEDS ORDERED: MIDAZOLAM 2 MG/2 ML INJ ONE (08:29)
[2018-12-25] MEDS ORDERED: PROMETHAZINE HCL INJ 25 MG/1 ML VIAL IV PRN (09:11)
[2018-12-25] MEDS ORDERED: FENTANYL CITRATE INJ/PF 100 MCG/2 ML AMPUL IV PRN ×3 (09:11)
[2018-12-25] MEDS ORDERED: DIPHENHYDRAMINE HCL 50 MG/ML VIAL IV PRN (09:11)
[2018-12-25] MEDS ORDERED: MEPERIDINE HCL/PF INJ 25 MG/1 ML DISP.SYRIN IV PRN (09:11)
[2018-12-25] MEDS ORDERED: IBUPROFEN 800 MG TABLET PO PRN (10:02)
[2018-12-25] MEDS ORDERED: RINGERS SOLUTION,LACTATED 1,000 ML IV PRN (10:02)
[2018-12-25] MEDS ORDERED: OXYCODONE-ACETAMINOPHEN 5-325 MG TABLET PO PRN ×2 (10:02)
[2018-12-25] MEDS ORDERED: KETOROLAC TROMETHAMINE INJ/PF 30 MG/1 ML SDV IV PRN (10:02)
--- NOTE | 2018-12-25 10:06 | Discharge Summary ---
Discharge Summary (SDC) - Discharge Final Diagnosis: left sided adhesions Date of Surgery: 12/25/18 Discharge Date: 12/25/18 Condition: Good Prescriptions: Oxycodone HCl/Acetaminophen [Percocet 5-325 mg Tablet] 1 tab PO Q4HP PRN #20 tablet PRN Reason: Ibuprofen [Motrin 800 mg Tablet] 800 mg PO NOW PRN #30 tablet PRN Reason: Referrals: KEVAN ALEJANDRE FNP-C [Primary Care Provider] - Discharge Diet: Regular Discharge Activity: Activity As Tolerated Home Care Assistance: None Needed Report the Following to Your Physician Immediately: Fever over 101 Degrees
[2018-12-25] MEDS ORDERED: KETOROLAC TROMETHAMINE INJ/PF 30 MG/1 ML SDV ONE (10:12)
--- NOTE | 2018-12-25 10:13 | Operative Report ---
Operative Report DATE OF SURGERY: 12/25/18 PREOPERATIVE DIAGNOSIS: Left-sided pelvic pain history of ovarian cysts POSTOPERATIVE DIAGNOSIS: Pelvic adhesions with omentum and left colon adhesed to the pelvic sidewall OPERATION: Diagnostic laparoscopy with lysis of adhesions and placement of Interceed to prevent further adhesion formation SURGEON: REINA NOVA ANESTHESIA: GA TISSUE REMOVED OR ALTERED: Pelvic adhesions COMPLICATIONS: None ESTIMATED BLOOD LOSS: Minimal INTRAOPERATIVE FINDINGS: Omental adhesion to left pelvic sidewall as well as colon adhesion to left pelvic sidewall PROCEDURE: Patient was taken to the OR and placed in supine position. General anesthesia was induced. She is placed in a dorsal lithotomy position using Rusty stirrups. Her abdomen perineum and vagina were prepared and draped in sterile fashion a Taveras catheter was placed in the bladder for drainage and a sponge stick was placed in the vagina for manipulation of the uterus. Incision was made at the umbilicus natural umbilical defect was identified and dilated allowing a 5 mm port to be placed bluntly. Laparoscopy confirmed appropriate placement. View of the pelvis was good. A suprapubic incision was made and a 5 mm port placed under laparoscopic visualization. The uterus tubes and ovaries were quite normal and there is no evidence of endometriosis either in the posterior cul-de-sac or behind the ovaries. The ovaries were free and moved easily with no sticking points. There were no ovarian cysts present at this time. The fallopian tubes were also quite normal in appearance. There were a couple ronda in the cul-de-sac which were tiny and I removed those. Her pain was focused mainly on the left side and over the left pelvis the omentum had a very large adhesion forming to the left side abdominal wall. This was taken down using blunt dissection. Also underneath the omental adhesion the colon was adhesed in a similar fashion and this was taken down with sharp and blunt dissection. At the end of the case the dissected areas were irrigated. Hemostasis was assured assured. The fluid was removed from the pelvis. Interceed was then placed over the areas of previous adhesion to hopefully prevent them from adhesion once again. Photos were taken however the printer was printing only and red and the photos were not usable. The gas was allowed to escape from the abdomen. The ports were removed. The fascia at the umbilicus was closed with 2-0 Vicryl stitch and skin at both sites closed with a 4-0 undyed Vicryl stitch. The Taveras catheter and the sponge stick were removed. Patient was extubated in the OR and taken recovery in stable condition.
[2018-12-25] MEDS: FENTANYL CITRATE INJ/PF 100 MCG/2 ML AMPUL ONE ×2 (10:20→10:25)
[2018-12-25] MEDS ORDERED: OXYCODONE-ACETAMINOPHEN 5-325 MG TABLET ONE (11:00)
[2018-12-25] MEDS ORDERED: ONDANSETRON HCL INJ/PF 4 MG/2 ML SDV ONE ×2 (11:00→13:44)
[2018-12-25 12:48] VITALS: BP 105/65
[2018-12-25] MEDS ORDERED: NEOSTIGMINE METHYLSULFATE 10 MG/10 ML VIAL ONE (13:44)
[2018-12-25] MEDS ORDERED: ROCURONIUM BROMIDE INJ 50 MG/5 ML VIAL IV ONE (13:44)
[2018-12-25] MEDS ORDERED: DEXAMETHASONE SOD PHOSPHATE INJ 4 MG/1 ML VIAL ONE (13:44)
[2018-12-25] MEDS ORDERED: GLYCOPYRROLATE 1 MG/5 ML SYRINGE ONE (13:44)
[2018-12-25] MEDS ORDERED: ARIPIPRAZOLE 5 MG TABLET PO SCH (22:00)
[2018-12-25] MEDS ORDERED: ARIPIPRAZOLE 5 MG PO SCH (22:00)
== END 2018-12-25 12:49 | disposition home or self-care (01) ==
LOC: OROUT 07:34
PROVIDERS: ATTEND Obstetrics & Gynecology
DX: N73.6 Female pelvic peritoneal adhesions (postinfective) (principal); E66.9 Obesity, unspecified; K74.60 Unspecified cirrhosis of liver; E05.00 Thyrotoxicosis with diffuse goiter without thyrotoxic crisis or storm; K76.0 Fatty (change of) liver, not elsewhere classified; Z88.0 Allergy status to penicillin; Z88.5 Allergy status to narcotic agent; Z79.899 Other long term (current) drug therapy; Z68.41 Body mass index [BMI] 40.0-44.9, adult
CPT/HCPCS: 93005; 36415; 85027; 81005; 81025; 93010; 49329; C1765; J2250; J3490 ×2; J1100; J3010; J1885; J2405; J2704; 840

== ENCOUNTER 2019-01-12 14:31 | Emergency (ER) | payer MEDICAID ==
[2019-01-12] MEDS ORDERED: ONDANSETRON 4 MG TAB.RAPDIS PO ONE (15:05)
--- NOTE | 2019-01-12 15:05 | ER Document Report ---
ED Medical Screen (RME) - General Chief Complaint: Abdominal Pain Stated Complaint: ABDOMINAL PAIN Time Seen by Provider: 01/12/19 15:00 Primary Care Provider: KEVAN ALEJANDRE FNP-C [Primary Care Provider] - Follow up as needed TRAVEL OUTSIDE OF THE [place] IN LAST 30 DAYS: No - HPI Notes: 01/12/19 15:04 Patient is a 29-year-old female who presents emergency department complaining of lower abdominal pain with reported vaginal yellow discharge and associated nausea/vomiting over the past 3 days. Patient states that about 3 weeks ago she had laparoscopic abdominal surgery that removed an adhesion from previous gastric bypass in her lower abdomen. Patient states that she also has felt some palpitations over the past couple days which she has had in the past. She also feels some weakness over the past couple days as she has not been eating or drinking as much because of the nausea/vomiting. Denies [place], fever, neck pain, URI, CP, SOB, Abd pain, or rash. I have treated and performed a rapid initial assessment of this patient. A comprehensive ED assessment and evaluation of the patient, analysis of test results and completion of medical decision making process will be conducted by additional ED providers. PHYSICAL EXAMINATION: GENERAL: Well-appearing, well-nourished and in no acute distress. A&Ox4. Answers questions appropriately. LUNGS: Breath sounds clear to auscultation bilaterally and equal. No wheezes rales or rhonchi. HEART: Regular rate and rhythm without murmurs, rubs, gallops. ABDOMEN: Soft, nondistended abdomen. No guarding, no rebound. Normal bowel sounds present. No CVA tenderness bilaterally. + lower tenderness (cannot elicit thorough abd exam w/o table, however). Extremities: No cyanosis, clubbing, or edema b/l. NEUROLOGICAL: Normal speech, normal gait. PSYCH: Normal mood, normal affect. - Related Data Allergies/Adverse Reactions: Penicillins Allergy (Verified 12/24/18 10:43) Rash hydrocodone Adverse Reaction (Verified 12/24/18 10:43) Nausea, vomiting oxycodone Adverse Reaction (Verified 12/24/18 10:43) Nausea, vomiting Surgical Glue Adverse Reaction (Uncoded 12/24/18 10:59) Rash Past Medical History - Past Medical History Cardiac Medical History: Denies: Hx Coronary Artery Disease, Hx Heart Attack, Hx Hypertension Pulmonary Medical History: Denies: Hx Asthma, Hx Bronchitis, Hx COPD, Hx Pneumonia Neurological Medical History: Denies: Hx Cerebrovascular Accident, Hx Seizures Endocrine Medical History: Reports: Hx Graves' Disease Renal/ Medical History: Denies: Hx Peritoneal Dialysis Musculoskeltal Medical History: Denies Hx Arthritis Psychiatric Medical History: Reports: Hx Depression, Hx Post Traumatic Stress Disorder Past Surgical History: Reports: Hx Abdominal Surgery - gastric bypass, Hx Appendectomy, Hx Tonsillectomy - Immunizations Hx Diphtheria, Pertussis, Tetanus Vaccination: Yes History of Influenza Vaccine for 07/2017 - 12/2017 Season: No Physical Exam - Vital signs Vitals: Temp Pulse Resp BP Pulse Ox 98.7 F 79 16 110/66 95 01/12/19 14:45 01/12/19 14:45 01/12/19 14:45 01/12/19 14:45 01/12/19 14:45 Course - Vital Signs Vital signs: Temp Pulse Resp BP Pulse Ox 98.7 F 79 16 110/66 95 01/12/19 14:45 01/12/19 14:45 01/12/19 14:45 01/12/19 14:45 01/12/19 14:45 Doctor's Discharge - Discharge Referrals: KEVAN ALEJANDRE FNP-C [Primary Care Provider] - Follow up as needed
--- NOTE | 2019-01-12 15:37 | EKG REPORT ---
SEVERITY:- ABNORMAL ECG - SINUS RHYTHM BORDERLINE LEFT AXIS DEVIATION NONSPECIFIC T ABNORMALITIES, ANTERIOR LEADS : Confirmed by: Gerber Machado MD 12-Jan-2019 15:36:22
[2019-01-12 16:00] LABS: ABSOLUTE BASOPHILS # (AUTO) 0.1 10^3/uL (0.0-0.2); ABSOLUTE EOSINOPHILS # (AUTO) 0.4 10^3/uL (0.0-0.6); ABSOLUTE LYMPHOCYTES (AUTO) 3.2 10^3/uL (0.5-4.7); ABSOLUTE MONOCYTES (AUTO) 0.5 10^3/uL (0.1-1.4); ABSOLUTE NEUT (AUTO) 5.3 10^3/uL (1.7-8.2); BASOPHILS % (AUTO) 0.6 % (0-2); EOSINOPHILS % (AUTO) 3.9 % (0-6); HEMATOCRIT 40.4 % (36.0-47.0); HEMOGLOBIN 13.6 g/dL (12.0-15.5); LYMPHOCYTES % (AUTO) 33.9 % (13-45); MEAN CORPUSCULAR HEMOGLOBIN 29.1 pg (27.0-33.4); MEAN CORPUSCULAR HGB CONC 33.6 g/dL (32.0-36.0); MEAN CORPUSCULAR VOLUME 87 fl (80-97); MONOCYTES % (AUTO) 5.7 % (3-13); PLATELET COUNT 320 10^3/uL (150-450); RED BLOOD COUNT 4.66 10^6/uL (3.72-5.28); RED CELL DISTRIBUTION WIDTH 15.4 % (11.5-14.0); SEGMENTED NEUTROPHILS % (AUTO) 55.9 % (42-78); TOTAL CELLS COUNTED % (AUTO) 100 %; WHITE BLOOD COUNT 9.5 10^3/uL (4.0-10.5)
[2019-01-12 16:04] LABS: APPEARANCE,URINE SLIGHTLY-CLOUDY; BILIRUBIN,URINE NEGATIVE (NEGATIVE); COLOR,URINE YELLOW; GLUCOSE, URINE NEGATIVE (NEGATIVE); KETONES,URINE NEGATIVE (NEGATIVE); LEUKOCYTE ESTERASE,URINE NEGATIVE (NEGATIVE); NITRITE,URINE NEGATIVE (NEGATIVE); PROTEIN,URINE NEGATIVE (NEGATIVE); URINE SPECIFIC GRAVITY 1.026
[2019-01-12 16:11] LABS: ALANINE AMINOTRANSFERASE 41 U/L (9-52); ALBUMIN 4.2 g/dL (3.5-5.0); ALKALINE PHOSPHATASE 86 U/L (38-126); ANION GAP 6 (5-19); ASPARTATE AMINO TRANSFERASE 53 U/L (14-36); BILIRUBIN,DIRECT 0.3 mg/dL (0.0-0.4); BILIRUBIN,TOTAL 0.4 mg/dL (0.2-1.3); BLOOD UREA NITROGEN 6 mg/dL (7-20); CALCIUM 9.3 mg/dL (8.4-10.2); CARBON DIOXIDE 28 mmol/L (22-30); CHLORIDE 105 mmol/L (98-107); GLUCOSE 81 mg/dL (75-110); LIPASE 82.7 U/L (23-300); PHOSPHORUS 4.2 mg/dL (2.5-4.5); SODIUM 139.2 mmol/L (137-145); TOTAL PROTEIN 7.4 g/dL (6.3-8.2)
[2019-01-12 16:12] LABS: URINE AMPHETAMINES SCREEN NEGATIVE; URINE BARBITURATES SCREEN NEGATIVE; URINE BENZODIAZEPINES SCREEN NEGATIVE; URINE COCAINE SCREEN NEGATIVE; URINE MARIJUANA (THC) SCREEN NEGATIVE; URINE METHADONE SCREEN NEGATIVE; URINE PHENCYCLIDINE SCREEN NEGATIVE
--- NOTE | 2019-01-12 16:27 | RADIOLOGY REPORT (SQ) ---
EXAM DESCRIPTION: CHEST SINGLE VIEW COMPLETED DATE/TIME: 01/12/2019 4:14 pm REASON FOR STUDY: palpitations COMPARISON: None. EXAM PARAMETERS: NUMBER OF VIEWS: One view. TECHNIQUE: Single frontal radiographic view of the chest acquired. RADIATION DOSE: NA LIMITATIONS: None. FINDINGS: LUNGS AND PLEURA: No opacities, masses or pneumothorax. No pleural effusion. MEDIASTINUM AND HILAR STRUCTURES: No masses. Contour normal. HEART AND VASCULAR STRUCTURES: Heart normal in size. Normal vasculature. BONES: No acute findings. HARDWARE: None in the chest. OTHER: No other significant finding. IMPRESSION: NO ACUTE RADIOGRAPHIC FINDING IN THE CHEST. TECHNICAL DOCUMENTATION: JOB ID: [id number] [id number] [email or web address]- All Rights Reserved Reading location - IP/workstation name: [email or web address]
--- NOTE | 2019-01-12 17:21 | RADIOLOGY REPORT (SQ) ---
EXAM DESCRIPTION: U/S NON OB PEL TV W/DOPPLER COMPLETED DATE/TIME: 01/12/2019 5:06 pm REASON FOR STUDY: pelvic pain COMPARISON: None. TECHNIQUE: Dynamic and static grayscale images acquired of the pelvis via transvaginal approach and recorded on PACS. Additional selected color Doppler and spectral images recorded. LIMITATIONS: None. FINDINGS: UTERUS: Contour normal. No mass. ENDOMETRIAL STRIPE: No focal or generalized thickening. No masses. CERVIX: No nabothian cysts. RIGHT OVARY AND DOPPLER: Normal size. No worrisome masses. Normal arterial vascular flow without ev idence for torsion. There are 2 small simple appearing cyst within the right ovary with the largest measuring 3.2 cm. LEFT OVARY AND DOPPLER: Normal size. No worrisome masses. Normal arterial vascular flow without evide nce for torsion. There is a simple appearing cyst measuring 2.4 cm within the left ovary. FREE FLUID: There is a small amount of free fluid in the right adnexa OTHER: No other significant finding. MEASUREMENTS: UTERUS: 7.9 x 4.7 x 6.3 cm ENDOMETRIAL STRIPE: 3 mm RIGHT OVARY: 5.1 x 3.3 x 2.7 cm LEFT OVARY: 3.7 x 2.2 x 2.7 cm IMPRESSION: Simple appearing small cysts in the right ovary and left ovary. Exam is otherwise unrem arkable. TECHNICAL DOCUMENTATION: JOB ID: [id number]- All Rights Reserved Rev-02/22 Reading location - IP/workstation name: [email or web address]
[2019-01-12] MEDS ORDERED: KETOROLAC TROMETHAMINE INJ/PF 30 MG/1 ML SDV ONE (19:08)
[2019-01-12] MEDS ORDERED: MORPHINE SULFATE 10 MG/ML INJ IV PRN (19:26)
[2019-01-12] MEDS ORDERED: NORMAL SALINE 1000 ML 1,000 ML IV ONE (19:27)
--- NOTE | 2019-01-12 19:30 | ER Document Report ---
ED General - General Chief Complaint: Abdominal Pain Stated Complaint: ABDOMINAL PAIN Time Seen by Provider: 01/12/19 15:00 Primary Care Provider: KEVAN ALEJANDRE FNP-C [Primary Care Provider] - Follow up as needed Notes: Patient is a 29-year-old female who presents emergency department complaining of lower abdominal pain. Patient states that about 3 weeks ago she had laparoscopic abdominal surgery that removed an adhesion from previous gastric bypass in her lower abdomen. She states that her left ovary was adhered to her left bowel. Patient also reports that she has had intermittent palpitations although denies any currently. Denies chest pain or shortness of breath. Denies fever or constitutional symptoms. In was gradual in onset, has been progressively worsening since that time. Regarded as being a cramping, aching, Moderate to severe pain. Nothing improves or worsens her pain. She has not contacted Dr. Peralta the surgeon who performed her procedure regarding today's concerns. TRAVEL OUTSIDE OF THE [place] IN LAST 30 DAYS: No - Related Data Allergies/Adverse Reactions: Penicillins Allergy (Verified 12/24/18 10:43) Rash hydrocodone Adverse Reaction (Verified 12/24/18 10:43) Nausea, vomiting oxycodone Adverse Reaction (Verified 12/24/18 10:43) Nausea, vomiting Surgical Glue Adverse Reaction (Uncoded 12/24/18 10:59) Rash Past Medical History - General Information source: Patient - Social History Smoking Status: Never Smoker Chew tobacco use (# tins/day): No Frequency of alcohol use: None Drug Abuse: None Family History: Reviewed & Not Pertinent Patient has suicidal ideation: No Patient has homicidal ideation: No - Past Medical History Cardiac Medical History: Denies: Hx Coronary Artery Disease, Hx Heart Attack, Hx Hypertension Pulmonary Medical History: Denies: Hx Asthma, Hx Bronchitis, Hx COPD, Hx Pneumonia Neurological Medical History: Denies: Hx Cerebrovascular Accident, Hx Seizures Endocrine Medical History: Reports: Hx Graves' Disease Renal/ Medical History: Denies: Hx Peritoneal Dialysis Musculoskeletal Medical History: Denies Hx Arthritis Psychiatric Medical History: Reports: Hx Depression, Hx Post Traumatic Stress Disorder Past Surgical History: Reports: Hx Abdominal Surgery - gastric bypass, Hx Appendectomy, Hx Tonsillectomy - Immunizations Hx Diphtheria, Pertussis, Tetanus Vaccination: Yes Review of Systems - Review of Systems Notes: Constitutional: Negative for fever. HENT: Negative for sore throat. Eyes: Negative for visual changes. Cardiovascular: Negative for chest pain. Respiratory: Negative for shortness of breath. Gastrointestinal: Positive abdominal pain, nausea and vomiting Genitourinary: Negative for dysuria. Positive for scant vaginal discharge Musculoskeletal: Negative for back pain. Skin: Negative for rash. Neurological: Negative for headaches, weakness or numbness. 10 point ROS negative except as marked above and in HPI. Physical Exam - Vital signs Vitals: Temp Pulse Resp BP Pulse Ox 98.7 F 79 16 110/66 95 01/12/19 14:45 01/12/19 14:45 01/12/19 14:45 01/12/19 14:45 01/12/19 14:45 Interpretation: Normal Notes: PHYSICAL EXAMINATION: GENERAL: Well-appearing, well-nourished and in no acute distress. HEAD: Atraumatic, normocephalic. EYES: Pupils equal round and reactive to light, extraocular movements intact, sclera anicteric, conjunctiva are normal. ENT: nares patent, oropharynx clear without exudates. Moist mucous membranes. NECK: Normal range of motion, supple without lymphadenopathy LUNGS: Breath sounds clear to auscultation bilaterally and equal. No wheezes rales or rhonchi. HEART: Regular rate and rhythm without murmurs ABDOMEN: Soft, mild tenderness to the left lower quadrant as well as suprapubic region although no other areas of localized tenderness, rebound or guarding EXTREMITIES: Normal range of motion, no pitting or edema. No cyanosis. NEUROLOGICAL: No focal neurological deficits. Moves all extremities spontaneously and on command. PSYCH: Normal mood, normal affect. SKIN: Warm, Dry, normal turgor, no rashes or lesions noted. Course - Re-evaluation Re-evalutation: 01/12/19 19:29 Patient presents with several days of progressively worsening left lower quadrant and suprapubic pain postoperative from a laparoscopic exploratory surgery with lysis of adhesions. Patient's vitals are within normal limits, overall well in appearance. Areas of focal rebound or guarding. A transvaginal ultrasound obtained in triage does demonstrate bilateral simple ovarian cysts. No free fluid. Labs unremarkable without leukocytosis. Urinalysis clear. She is not . CT scan of the abdomen and pelvis will be obtained to evaluate for any evidence of possible intra-abdominal abscess, localized bowel injury 01/12/19 22:16 CT scan of the abdomen pelvis shows possible common bile duct dilation although this would not be consistent with where the patient is having pain. The patient likewise does not have any LFT derangements that would suggest a true obstructive biliary pathology. Repeat abdominal exam continues to not demonstrate any upper abdominal discomfort only lower abdominal discomfort. CT otherwise unremarkable. I do not believe an MRCP is indicated at this point. At this time will discharge with return precautions and follow-up recommendations. Verbal discharge instructions given a the bedside and opp ortunity for questions given. Medication warnings reviewed. Patient is in agreement with this plan and has verbalized understanding of return precautions and the need for follow-up with Dr. Peralta in the morning. - Vital Signs Vital signs: Temp Pulse Resp BP Pulse Ox 98.0 F 71 20 103/63 99 01/12/19 20:29 01/12/19 20:29 01/12/19 20:29 01/12/19 20:29 01/12/19 20:29 - Laboratory Result Diagrams: 01/12/19 15:42 01/12/19 15:42 Laboratory results interpreted by me: 01/12/19 01/12/19 01/12/19 15:39 15:42 15:42 RDW 15.4 H BUN 6 L AST 53 H TSH Urine Urobilinogen 4.0 H Urine Ascorbic Acid 20 H 01/12/19 15:42 RDW BUN AST TSH 81.90 H Urine Urobilinogen Urine Ascorbic Acid - Diagnostic Test Radiology reviewed: Reports reviewed Discharge - Discharge Clinical Impression: Postoperative abdominal pain, Lower abdominal pain Condition: Good Disposition: HOME, SELF-CARE Additional Instructions: Your labs, ultrasound and CT scan are reassuring today. Your ultrasound does show ovarian cysts but is otherwise reassuring. Your labs otherwise normal. Please follow-up with Dr. Peralta in the morning given your ongoing postsurgical pain. Return if you develop a fever greater than 100.4 F, persistent vomiting, worsening pain or any other symptoms that are worrisome to you. Referrals: KEVAN ALEJANDRE FNP-C [Primary Care Provider] - Follow up as needed
--- NOTE | 2019-01-12 22:01 | RADIOLOGY REPORT (SQ) ---
EXAM DESCRIPTION: CT ABDOMEN PELVIS WITH IV CONTRAST COMPLETED DATE/TME: 01/12/2019 19:26 CLINICAL HISTORY: 29 years, Female, llq pain post op EXAM DESCRIPTION: CLINICAL HISTORY: llq pain post op COMPARISON: None Available TECHNIQUE: Contiguous axial images of the abdomen and pelvis were obtained after the administration of intravenous contrast followed by reconstruction images.This exam was performed according to our departmental dose-optimization program, which includes automated exposure control, adjustment of the mA and/or kV according to patient size and/or use of iterative reconstruction technique. FINDINGS: There are postsurgical changes in the left upper quadrant. The common bile duct is enlarged at 10 mm diameter. No clear cause for this is seen. No calcified stone is seen in the distal duct. No definite mass is seen at the pancreatic head. There is no significant thickening of the duodenal wall. There is fatty infiltration of liver. The appendix is apparently surgically absent. Right adnexal cyst measures approximately 27 mm diameter and is almost certainly benign. No follow-up is recommended. There is mild soft tissue stranding of the left lower quadrant mesentery. This is nonspecific. This could reflect postsurgical change, inflammation or less likely mesenteric ischemia. No significant bowel wall thickening is seen in this region. Trace fluid in the pelvis may be physiologic. The liver, spleen, pancreas and kidneys are otherwise within normal limits. There is no hydronephrosis. The gallbladder is unremarkable. Adrenal glands are within normal limits. Aorta is normal in caliber and tapering. No significant free fluid. No free air. No bowel obstruction. There is no other stranding of the mesenteric fat. IMPRESSION: Common duct dilatation is nonspecific and no clear etiology for it is seen. Obstructive stone is not excluded but no calcified stone is seen. MRCP would be more sensitive for filling defect in the common duct, if symptoms persist and further imaging is desired. Right adnexal cyst is almost certainly benign. No follow-up is recommended. Postoperative changes are seen. No other clear etiology for acute pain.
[2019-01-13 00:13] VITALS: BP 105/57
== END 2019-01-12 23:05 | disposition home or self-care (01) ==
LOC: ER 14:31
DX: G89.18 Other acute postprocedural pain (principal); R10.32 Left lower quadrant pain; R10.30 Lower abdominal pain, unspecified; R10.9 Unspecified abdominal pain; R11.2 Nausea with vomiting, unspecified; R00.2 Palpitations; Z98.890 Other specified postprocedural states
CPT/HCPCS: 93005; 99284; 96361; 96374; 36415; 87086; 83690; 83735; 84100; 84443; 85025; 81025; 80053; 81001; 80307; 71045; 76830; 93976; 74177; 93010; S0119; J1885; J7030

== ENCOUNTER 2019-04-27 20:55 | Inpatient (IN) | payer MEDICAID ==
[2019-04-27] MEDS ORDERED: NORMAL SALINE 1000 ML 1,000 ML IV ONE (23:16)
[2019-04-27 23:30] LABS: ABSOLUTE BASOPHILS # (AUTO) 0.1 10^3/uL (0.0-0.2); ABSOLUTE EOSINOPHILS # (AUTO) 0.3 10^3/uL (0.0-0.6); ABSOLUTE MONOCYTES (AUTO) 0.4 10^3/uL (0.1-1.4); ABSOLUTE NEUT (AUTO) 2.9 10^3/uL (1.7-8.2); BASOPHILS % (AUTO) 1.4 % (0-2); EOSINOPHILS % (AUTO) 4.3 % (0-6); HEMATOCRIT 41.5 % (36.0-47.0); LYMPHOCYTES % (AUTO) 51.4 % (13-45); MEAN CORPUSCULAR HEMOGLOBIN 30.3 pg (27.0-33.4); MEAN CORPUSCULAR HGB CONC 33.6 g/dL (32.0-36.0); MEAN CORPUSCULAR VOLUME 90 fl (80-97); MONOCYTES % (AUTO) 5.6 % (3-13); PLATELET COUNT 337 10^3/uL (150-450); RED BLOOD COUNT 4.61 10^6/uL (3.72-5.28); RED CELL DISTRIBUTION WIDTH 13.5 % (11.5-14.0); SEGMENTED NEUTROPHILS % (AUTO) 37.3 % (42-78); TOTAL CELLS COUNTED % (AUTO) 100 %; WHITE BLOOD COUNT 7.8 10^3/uL (4.0-10.5)
--- NOTE | 2019-04-27 23:39 | ER Document Report ---
ED General - General Chief Complaint: Passed Out Prior to Arrival Stated Complaint: VERTIGO Time Seen by Provider: 04/27/19 23:03 Primary Care Provider: HORACE FAUSTIN MD [ACTIVE STAFF] - 04/29/19 Notes: Patient is a pleasant 29-year-old female who presents with complaint of sickle episodes. She says over last week she is been getting dizzy when she stands up. She is passed out 3 times. She also mentions that she has some right upper quadrant abdominal pain. She had an ultrasound earlier this week because she has a history of cirrhosis from fatty liver disease. She says that her ultrasound showed that she had some decreased flow in the veins of her liver. 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 She denies any other abdominal pain. No vomiting. No diarrhea. No fevers. She has a previous history of gastric bypass surgery back in October. She has lost over 100 pounds since her surgery. TRAVEL OUTSIDE OF THE [place] IN LAST 30 DAYS: No - Related Data Allergies/Adverse Reactions: Penicillins Allergy (Verified 04/27/19 23:35) Rash hydrocodone Adverse Reaction (Verified 04/27/19 23:35) Nausea, vomiting oxycodone Adverse Reaction (Verified 04/27/19 23:35) Nausea, vomiting Surgical Glue Adverse Reaction (Uncoded 04/27/19 23:35) Rash Past Medical History - Social History Smoking Status: Never Smoker Frequency of alcohol use: None Drug Abuse: None Family History: Reviewed & Not Pertinent - Past Medical History Cardiac Medical History: Denies: Hx Coronary Artery Disease, Hx Heart Attack, Hx Hypertension Pulmonary Medical History: Denies: Hx Asthma, Hx Bronchitis, Hx COPD, Hx Pneumonia Neurological Medical History: Denies: Hx Cerebrovascular Accident, Hx Seizures Endocrine Medical History: Reports: Hx Graves' Disease Renal/ Medical History: Denies: Hx Peritoneal Dialysis Musculoskeletal Medical History: Denies Hx Arthritis Psychiatric Medical History: Reports: Hx Depression, Hx Post Traumatic Stress Disorder Past Surgical History: Reports: Hx Abdominal Surgery - gastric bypass, Hx Appendectomy, Hx Tonsillectomy - Immunizations Hx Diphtheria, Pertussis, Tetanus Vaccination: Yes Review of Systems - Review of Systems Notes: My Normal Review Basic REVIEW OF SYSTEMS: CONSTITUTIONAL : Denies fever, chills, or sweats. Denies recent illness. EENT: Denies eye, ear, throat, or mouth pain or symptoms. Denies nasal or sinus congestion. CARDIOVASCULAR: Denies chest pain. RESPIRATORY: Denies cough, cold, or chest congestion. Denies shortness of breath, difficulty breathing, or wheezing. GASTROINTESTINAL: Right upper quadrant abdominal pain. No nausea vomiting. GENITOURINARY: Denies difficulty urinating, painful urination, burning, frequency, or blood in urine. MUSCULOSKELETAL: Denies neck or back pain or joint pain or swelling. SKIN: Denies rash or skin lesions. NEUROLOGICAL:Syncopal episodes x3. denies headache. Denies weakness or paralysis or loss of use of either side. Denies problems with gait or speech. Denies sensory or motor loss. ALL OTHER SYSTEMS REVIEWED AND NEGATIVE. Physical Exam - Vital signs Vitals: Temp Pulse Resp BP Pulse Ox 98.1 F 57 L 15 124/65 99 04/27/19 21:02 04/27/19 21:02 04/27/19 21:02 04/27/19 21:02 04/27/19 21:02 - Notes Notes: General Appearance: Well nourished, alert, cooperative, no acute distress, no obvious discomfort. Vitals: reviewed, See vital signs table. Head: no swelling or tenderness to the head Eyes: PERRL, EOMI, Conjuctiva clear Mouth: No decreasd moisture Lungs: No wheezing, No rales, No rhonci, No accessory muscle use, good air exc hange bilaterally. Heart: Normal rate, Regular rythm, No murmur, no rub Abdomen: Normal BS, soft, No rigidity, moderate right upper quadrant abdominal tenderness to palpation., No guarding, no rebound, no abdominal masses, no organomegaly Extremities: strength 5/5 in all extremities, good pulses in all extremities, no swelling or tenderness in the extremities, no edema. Skin: warm, dry, appropriate color, no rash Neuro: speech clear, oriented x 3, normal affect, responds appropriately to questions. Cranial nerves II through XII are intact. Distal sensation intact. Patient was all extremities without difficulty. Course - Re-evaluation Re-evalutation: 04/28/19 01:01 Reevaluation patient still has some pain in the right side of her liver pedal give her limited pain medicine. Her liver enzymes are good except for some mild elevation of her AST she says is an improvement from her baseline. Her INR is normal. Her PT is normal. Is concerned for the possibility of a portal vein thrombosis based on the history of syncope and pain of her right upper quadrant however her ultrasound shows good flow throughout the portal vein. A therefore asked further questions regards to her syncope. Patient does admit that she daugherty s feel short of breath before she passes out upon standing. I therefore will obtain a CT of the chest to make sure is no evidence of PE. 04/28/19 01:01 04/28/19 03:50 CT PE study is negative. I went to stand patient again. I had her go from lying to sitting up. I then waited some time and then had her stand up. So she went to stand up she started to pass out again and had to catch her. Patient's heart rate went from the 50s to the upper 90s when she stood. I checked her blood pressure and blood pressure actually was okay at 120/73. Patient says she does not feel comfortable going home being that she is still passing out when she stands up. Therefore called the hospitalist, Dr. Dash, discussed the case with him. He recommends getting a drug screen and then to call him back with results. 04/28/19 04:56 Drug screen came back negative. Dr. Dash will evaluate the patient for potential admission. Dictation of this chart was performed using voice recognition software; the refore, there may be some unintended grammatical errors. - Vital Signs Vital signs: Temp Pulse Resp BP Pulse Ox 98.1 F 57 L 23 H 110/69 100 04/27/19 21:02 04/27/19 21:02 04/28/19 02:00 04/28/19 02:00 04/28/19 02:00 - Laboratory Result Diagrams: 04/27/19 23:06 04/27/19 23:06 Laboratory results interpreted by me: 04/27/19 04/27/19 04/27/19 23:06 23:06 23:06 Seg Neutrophils % 37.3 L Lymphocytes % 51.4 H Creatinine 0.50 L AST 52 H Urine Ketones 20 H Urine Urobilinogen 2.0 H - EKG Interpretation by Me Additional EKG results interpreted by me: 04/28/19 00:15 EKG is reviewed and interpreted by me. EKG shows sinus rhythm with rate [address] segment elevation or depression. T wave inversion in lead V3 which is unchanged comparison previous EKG. MI interval, QRS duration, QT intervals are within normal range. Old EKG for comparison is from January 12, 2019. Discharge - Discharge Clinical Impression: Right sided abdominal pain Syncope Qualifiers: Syncope type: unspecified Qualified Code(s): R55 - Syncope and collapse Condition: Stable Disposition: ADMITTED OBSERVATION Admitting Provider: Hardy (Hospitalist) Unit Admitted: Telemetry
[2019-04-27 23:41] LABS: APPEARANCE,URINE SLIGHTLY-CLOUDY; BILIRUBIN,URINE NEGATIVE (NEGATIVE); COLOR,URINE YELLOW; GLUCOSE, URINE NEGATIVE (NEGATIVE); KETONES,URINE 20 mg/dL (NEGATIVE); LEUKOCYTE ESTERASE,URINE NEGATIVE (NEGATIVE); NITRITE,URINE NEGATIVE (NEGATIVE); PROTEIN,URINE NEGATIVE (NEGATIVE); URINE SPECIFIC GRAVITY 1.029
[2019-04-27 23:47] LABS: ALANINE AMINOTRANSFERASE 49 U/L (9-52); ALBUMIN 4.7 g/dL (3.5-5.0); ALKALINE PHOSPHATASE 89 U/L (38-126); ANION GAP 11 (5-19); ASPARTATE AMINO TRANSFERASE 52 U/L (14-36); BILIRUBIN,DIRECT 0.3 mg/dL (0.0-0.4); BILIRUBIN,TOTAL 0.5 mg/dL (0.2-1.3); BLOOD UREA NITROGEN 9 mg/dL (7-20); CALCIUM 9.9 mg/dL (8.4-10.2); CARBON DIOXIDE 25 mmol/L (22-30); CHLORIDE 103 mmol/L (98-107); GLUCOSE 84 mg/dL (75-110); POTASSIUM 4.2 mmol/L (3.6-5.0); TOTAL PROTEIN 7.8 g/dL (6.3-8.2)
--- NOTE | 2019-04-28 00:23 | RADIOLOGY REPORT (SQ) ---
US ABDOMEN DOPPLER LIMITED EXAM DATE: 04/27/2019 11:16 PM CDT HISTORY: Right upper quadrant pain. COMPARISON: None. TECHNIQUE: Grayscale and color Doppler imaging of the right upper quadrant was performed. FINDINGS: Increased echogenicity of the hepatic parenchyma with decreased through transmission and poor visualization of the portal triads, suggesting hepatic steatosis. The main portal vein has normal hepatopetal flow. No shadowing gallstones are seen. No pericholecystic fluid or gallbladder wall thickening. The common bile duct is mildly prominent measuring 6-7 mm. The pancreas is not well-visualized due to overlying bowel gas. No hydronephrosis or shadowing renal stones are identified. The right kidney is normal in size. The visualized portions of the IVC and aorta are patent. IMPRESSION: 1. Hepatic steatosis. Correlate with lab values to exclude steatohepatitis. 2. Mildly prominent CBD, although no gallstones or inflammatory changes are seen.
[2019-04-28 00:25] LABS: FREE T4 (FREE THYROXINE) 1.01 ng/dL (0.78-2.19)
[2019-04-28 00:32] LABS: INTERNATIONAL RATION (INR) 0.96; PROTHROMBIN TIME 12.8 SEC (11.4-15.4)
[2019-04-28 00:33] LABS: PARTIAL THROMBOPLASTIN TIME 33.7 SEC (23.5-35.8)
[2019-04-28 00:40] LABS: THYROID STIMULATING HORMONE 4.61 uIU/mL (0.47-4.68)
[2019-04-28] MEDS ORDERED: FENTANYL CITRATE INJ/PF 100 MCG/2 ML AMPUL IV ONE (01:00)
[2019-04-28] MEDS ORDERED: NORMAL SALINE 1000 ML 1,000 ML IV ONE (01:00)
--- NOTE | 2019-04-28 03:18 | RADIOLOGY REPORT (SQ) ---
CT angiogram chest with contrast on 04/28/2019 at 2:15 AM CLINICAL INDICATION: Shortness of breath, syncope TECHNIQUE: Multiple axial images are obtained throughout the chest following the administration of IV contrast. Computer generated 3D reconstructions/MIPS were performed. This exam was performed according to our departmental dose-optimization program, which includes automated exposure control, adjustment of the mA and/or kV according to patient size and/or use of iterative reconstruction technique. Total DLP is 708.77 mGy*cm. COMPARISON: CT abdomen and lower chest from 01/12/2019 FINDINGS: There is no thoracic aortic aneurysm or dissection. The patient is status post gastric bypass surgery. Limited visualized upper abdomen is otherwise unremarkable. There is no pleural or pericardial effusion. There is no thoracic adenopathy. There are no filling defects within the pulmonary arteries to suggest pulmonary embolus. There is minimal bilateral dependent atelectasis. There is evidence of calcified granulomatous disease in the chest. The lungs are otherwise clear. No acute bony abnormality is noted. IMPRESSION: 1. No evidence of pulmonary embolus. 2. No acute abnormality.
[2019-04-28] MEDS ORDERED: RINGERS SOLUTION,LACTATED 1,000 ML IV ONE (03:49)
[2019-04-28 04:44] LABS: URINE AMPHETAMINES SCREEN NEGATIVE; URINE BARBITURATES SCREEN NEGATIVE; URINE BENZODIAZEPINES SCREEN NEGATIVE; URINE COCAINE SCREEN NEGATIVE; URINE MARIJUANA (THC) SCREEN NEGATIVE; URINE METHADONE SCREEN NEGATIVE; URINE PHENCYCLIDINE SCREEN NEGATIVE
[2019-04-28] MEDS ORDERED: MAG HYDROX/AL HYDROX/SIMETH SUSP 30 ML UDCUP PO PRN (05:00)
--- NOTE | 2019-04-28 05:46 | PDOC H&P ---
History of Present Illness Admission Date/PCP: 04/28/19 05:03 Patient complains of: Palpitations and passing out History of Present Illness: CHITO GAMINO is a 29 year old female with partial past medical history of diabetes, morbid obesity, Lucas, SVT, Graves' disease status post radioiodine therapy 18 months ago and Case-en-Y gastric bypass 7 months ago. She presents with 2 weeks of dizziness upon standing actually resulting in passing out several times without resulting injury. Her episodes are preceded by palpitations that usually resolves within a couple of minutes without syncope. In the emergency room she has an extensive negative work-up including CTA but has orthostatic symptoms after receiving 2 L of normal saline and is referred to the hospitalist for admission. She denies episodes of nervousness, diaphoresis, flushing, diarrhea or new medications. She otherwise feels well and has lost approximately 100 pounds over the last 7 months. Past Medical History Cardiac Medical History: Reports: Other - SVT Denies: Coronary Artery Disease, Myocardial Infarction, Hypertension Pulmonary Medical History: Denies: Asthma, Bronchitis, Chronic Obstructive Pulmonary Disease (COPD), Pneumonia Neurological Medical History: Denies: Seizures Musculoskeltal Medical History: Denies: Arthritis Psychiatric Medical History: Reports: Depression, Post Traumatic Stress Disorder Hematology: Denies: Anemia Past Surgical History Past Surgical History: Reports: Appendectomy, Tonsillectomy Social History Information Source: Patient Lives with: Family Smoking Status: Never Smoker Frequency of Alcohol Use: None Drugs: None - Advance Directive Resuscitation Status: Full Code Family History Family History: Other - Unknown Parental Family History Reviewed: Yes Children Family History Reviewed: Yes Sibling(s) Family History Reviewed.: Yes Medication/Allergy Home Medications: Bariatric Multivitamin 1 tab PO DAILY 12/24/18 Levothyroxine Sodium 200 mcg PO DAILY 12/24/18 Allergies/Adverse Reactions: Penicillins Allergy (Verified 04/27/19 23:35) Rash hydrocodone Adverse Reaction (Verified 04/27/19 23:35) Nausea, vomiting oxycodone Adverse Reaction (Verified 04/27/19 23:35) Nausea, vomiting Surgical Glue Adverse Reaction (Uncoded 04/27/19 23:35) Rash Review of Systems Constitutional: ABSENT: chills, fever(s), headache(s), weight gain, weight loss Eyes: ABSENT: visual disturbances Ears: ABSENT: hearing changes Cardiovascular: ABSENT: chest pain, dyspnea on exertion, edema, orthropnea, palpitations Respiratory: ABSENT: cough, hemoptysis Gastrointestinal: ABSENT: abdominal pain, constipation, diarrhea, hematemesis, hematochezia, nausea, vomiting Genitourinary: ABSENT: dysuria, hematuria Musculoskeletal: ABSENT: joint swelling Integumentary: ABSENT: rash, wounds Neurological: ABSENT: abnormal gait, abnormal speech, confusion, dizziness, focal weakness, syncope Psychiatric: ABSENT: anxiety, depression, homidical ideation, suicidal ideation Endocrine: ABSENT: cold intolerance, heat intolerance, polydipsia, polyuria Hematologic/Lymphatic: ABSENT: easy bleeding, easy bruising Physical Exam Vital Signs: Temp Pulse Resp BP Pulse Ox 98.1 F 57 L 23 H 110/69 100 04/27/19 21:02 04/27/19 21:02 04/28/19 02:00 04/28/19 02:00 04/28/19 02:00 Intake & Output 04/26/19 04/27/19 04/28/19 11:59 11:59 11:59 Intake Total 1000 Balance 1000 Weight 99.1 kg General appearance: PRESENT: no acute distress, well-developed, well-nourished Head exam: PRESENT: atraumatic, normocephalic Eye exam: PRESENT: conjunctiva pink, EOMI, PERRLA. ABSENT: scleral icterus Ear exam: PRESENT: normal external ear exam Mouth exam: PRESENT: moist, tongue midline Neck exam: ABSENT: carotid bruit, JVD, lymphadenopathy, thyromegaly Respiratory exam: PRESENT: clear to auscultation lopez. ABSENT: rales, rhonchi, wheezes Cardiovascular exam: PRESENT: diastolic murmur, RRR, +S1, +S2. ABSENT: rubs, systolic murmur Pulses: PRESENT: normal dorsalis pedis pul Vascular exam: PRESENT: normal capillary refill GI/Abdominal exam: PRESENT: normal bowel sounds, soft. ABSENT: distended, guarding, mass, organolmegaly, rebound, tenderness Rectal exam: PRESENT: deferred Extremities exam: PRESENT: full ROM. ABSENT: calf tenderness, clubbing, pedal edema Neurological exam: PRESENT: alert, awake, oriented to person, oriented to place, oriented to time, oriented to situation, CN II-XII grossly intact. ABSENT: motor sensory deficit Psychiatric exam: PRESENT: appropriate affect, normal mood. ABSENT: homicidal ideation, suicidal ideation Skin exam: PRESENT: dry, intact, warm. ABSENT: cyanosis, rash Results Laboratory Results: 04/27/19 23:06 04/27/19 23:06 04/27/19 04/27/19 04/27/19 23:06 23:06 23:06 WBC 7.8 RBC 4.61 Hgb 14.0 Hct 41.5 MCV 90 MCH 30.3 MCHC 33.6 RDW 13.5 Plt Count 337 Seg Neutrophils % 37.3 L Lymphocytes % 51.4 H Monocytes % 5.6 Eosinophils % 4.3 Basophils % 1.4 Absolute Neutrophils 2.9 Absolute Lymphocytes 4.0 Absolute Monocytes 0.4 Absolute Eosinophils 0.3 Absolute Basophils 0.1 Sodium 139.4 Potassium 4.2 Chloride 103 Carbon Dioxide 25 Anion Gap 11 BUN 9 Creatinine 0.50 L Est GFR ( Amer) > 60 Est GFR (Non-Af Amer) > 60 Glucose 84 Calcium 9.9 Total Bilirubin 0.5 AST 52 H ALT 49 Alkaline Phosphatase 89 Total Protein 7.8 Albumin 4.7 TSH Free T4 Serum HCG, Qual NEGATIVE Urine Color Urine Appearance Urine pH Ur Specific Lincoln Urine Protein Urine Glucose (UA) Urine Ketones Urine Blood Urine Nitrite Ur Leukocyte Esterase Urine WBC (Auto) Urine RBC (Auto) Blood Type Antibody Screen 04/27/19 04/27/19 04/27/19 23:06 23:06 23:20 WBC RBC Hgb Hct MCV MCH MCHC RDW Plt Count Seg Neutrophils % Lymphocytes % Monocytes % Eosinophils % Basophils % Absolute Neutrophils Absolute Lymphocytes Absolute Monocytes Absolute Eosinophils Absolute Basophils Sodium Potassium Chloride Carbon Dioxide Anion Gap BUN Creatinine Est GFR ( Amer) Est GFR (Non-Af Amer) Glucose Calcium Total Bilirubin AST ALT Alkaline Phosphatase Total Protein Albumin TSH 4.61 Free T4 1.01 Serum HCG, Qual Urine Color YELLOW Urine Appearance SLIGHTLY-CLOUDY Urine pH 7.0 Ur Specific Lincoln 1.029 Urine Protein NEGATIVE Urine Glucose (UA) NEGATIVE Urine Ketones 20 H Urine Blood NEGATIVE Urine Nitrite NEGATIVE Ur Leukocyte Esterase NEGATIVE Urine WBC (Auto) 1 Urine RBC (Auto) 2 Blood Type O POSITIVE Antibody Screen NEGATIVE Impressions: Abdomen Ultrasound 04/27/19 23:16 IMPRESSION: 1. Hepatic steatosis. Correlate with lab values to exclude steatohepatitis. 2. Mildly prominent CBD, although no gallstones or inflammatory changes are seen. Chest/Abdomen CTA 04/28/19 01:00 IMPRESSION: 1. No evidence of pulmonary embolus. 2. No acute abnormality. Assessment and Plan - Diagnosis (1) Orthostasis Is this a current diagnosis for this admission?: Yes Plan: Appears euvolemic but having tachycardia upon standing, MARIA stockings, orthostatic blood pressure, follow-up 2D echo given unknown family history. (2) Syncope Qualifiers: Syncope type: unspecified Qualified Code(s): R55 - Syncope and collapse Is this a current diagnosis for this admission?: Yes Plan: Please see #1
--- NOTE | 2019-04-28 06:29 | EKG REPORT ---
SEVERITY:- BORDERLINE ECG - SINUS RHYTHM BORDERLINE T ABNORMALITIES, DIFFUSE LEADS : Confirmed by: Gerber Machado MD 28-Apr-2019 06:29:05
[2019-04-28] MEDS: LEVOTHYROXINE SODIUM 0.1 MG TABLET PO SCH (07:35)
[2019-04-28] MEDS: HEPARIN SOD (PORCINE) 5,000 UNIT/ML 1 ML VIAL SUBCUT SCH ×3 (07:35→21:56)
[2019-04-28] MEDS ORDERED: BARIATRIC MULTIVITAMIN PO SCH (10:00)
[2019-04-28] MEDS ORDERED: (PENDING PHARMACY ID) (Levothyroxine Sodium [Levothyroxine Sodium] 200 MCG) PO SCH (10:00)
[2019-04-28] MEDS: NORMAL SALINE 1000 ML 1,000 ML IV PRN ×2 (11:50→23:41)
--- NOTE | 2019-04-28 12:40 | RADIOLOGY REPORT (SQ) ---
EXAM DESCRIPTION: CT HEAD WITHOUT COMPLETED DATE/TIME: 04/28/2019 11:41 am REASON FOR STUDY: syncope COMPARISON: None. TECHNIQUE: Axial images acquired through the brain without intravenous contrast. Images reviewed wi th bone, brain and subdural windows. Additional sagittal and coronal reconstructions were generated. Images stored on PACS. All CT scanners at this facility use dose modulation, iterative reconstruction, and/or weight based d osing when appropriate to reduce radiation dose to as low as reasonably achievable (ALARA). [facility]: Dose Right [facility]: CareDose [facility]: Dose Right [facility]: Teradose 4D [facility]: Smart Justinmind RADIATION DOSE: CT Rad equipment meets quality standard of care and radiation dose reduction techniq ues were employed. CTDIvol: 48.6 mGy. DLP: 855 mGy-cm. mGy. LIMITATIONS: None. FINDINGS: VENTRICLES: Normal size and contour. CEREBRUM: No masses. No hemorrhage. No midline shift. No evidence for acute infarction. Normal gra y/white matter differentiation. No areas of low density in the white matter. CEREBELLUM: No masses. No hemorrhage. No alteration of density. No evidence for acute infarction. EXTRAAXIAL SPACES: No fluid collections. No masses. ORBITS AND GLOBE: No intra- or extraconal masses. Normal contour of globe without masses. CALVARIUM: No fracture. PARANASAL SINUSES: There is mild bilateral ethmoid mucosal thickening. There is mucosal thickening i n both maxillary sinuses. There is a small retention cyst or polyp in the left maxillary sinus as we ll. SOFT TISSUES: No mass or hematoma. OTHER: No other significant finding. IMPRESSION: NORMAL BRAIN CT WITHOUT CONTRAST. EVIDENCE OF ACUTE STROKE: NO. COMMENT: Quality ID # [id number]: Final reports with documentation of one or more dose reduction techniques (e.g., Automated exposure control, adjustment of the mA and/or kV according to patient size, use of iterative reconstruction technique) TECHNICAL DOCUMENTATION: JOB ID: [id number] [employer]- All Rights Reserved Reading location - IP/workstation name: [email or web address]
[2019-04-29] MEDS: LEVOTHYROXINE SODIUM 0.1 MG TABLET PO SCH (06:09)
[2019-04-29] MEDS: HEPARIN SOD (PORCINE) 5,000 UNIT/ML 1 ML VIAL SUBCUT SCH ×3 (06:10→21:39)
--- NOTE | 2019-04-29 07:49 | Progress Note Acknowledgement ---
Progress Note Acknowledgement Progess Note Acknowledgement: I, the undersigned member of the medical staff with appropriate privileges and with supervisory authority over [ PAC ], a dependent practice allied health professional, acknowledge that I have reviewed the progress notes entered on this patient, and in my professional judgment believe that the assessment made and/or any care evidenced was appropriate
--- NOTE | 2019-04-29 09:48 | PDOC PROGRESS REPORT ---
Subjective Progress Note for:: 04/29/19 Subjective:: Patient was admitted early yesterday morning for symptoms that are suggestive for vertigo. Patient states her symptoms have been ongoing for approximately 2 weeks. Patient states that she has seen her primary care provider for this problem they were unable to come up with a diagnosis. Patient had gastric bypass surgery 7 months ago is lost 100 pounds since then. Patient also had pelvic surgery 3 months ago adhesions Patient states she still feels like she she is having the symptoms when she stands or ambulates. Patient denies vomiting. Patient also complains of numbness and tingling in both arms and both feet. Patient is also currently taking her vitamins as well as medicine for PTSD. Patient is a [id number] mom of a 2-year-old and 6-year-old. Basic labs are normal including TSH magnesium and other electrolytes CT head scan reveals no intracranial lesions. Echo is pending. Patient will have further labs today as well as physical therapy evaluation patient was told that she needs to secure help at home for anticipated discharge tomorrow. Patient was told that we may not have a definitive diagnosis at the time of discharge however we will be able to rule out certain etiologies patient has an appointment with her bariatric surgeon within the next 2 weeks. Review of orthostatic vital signs shows no gross abnormalities. All of patien t's questions were answered Reason For Visit: ORTHOSTATIC HYPOTENSION Physical Exam Vital Signs: Temp Pulse Resp BP Pulse Ox 98.6 F 56 L 18 102/62 99 04/29/19 07:56 04/29/19 07:56 04/29/19 07:56 04/29/19 07:56 04/29/19 07:56 Intake & Output 04/28/19 04/29/19 04/30/19 06:59 06:59 06:59 Intake Total 1000 4100 Output Total 2500 Balance 1000 1600 Weight 99.1 kg 99.5 kg General appearance: PRESENT: no acute distress, well-developed, well-nourished Head exam: PRESENT: atraumatic, normocephalic Eye exam: PRESENT: conjunctiva pink, EOMI, PERRLA. ABSENT: scleral icterus Respiratory exam: PRESENT: clear to auscultation lopez. ABSENT: rales, rhonchi, wheezes Cardiovascular exam: PRESENT: RRR. ABSENT: diastolic murmur, rubs, systolic m urmur Rectal exam: PRESENT: deferred Neurological exam: PRESENT: alert, awake, oriented to person, oriented to place, oriented to time, oriented to situation, CN II-XII grossly intact. ABSENT: motor sensory deficit Psychiatric exam: PRESENT: appropriate affect, normal mood. ABSENT: homicidal ideation, suicidal ideation Results Laboratory Results: 04/27/19 23:06 04/27/19 23:06 Impressions: Abdomen Ultrasound 04/27/19 23:16 IMPRESSION: 1. Hepatic steatosis. Correlate with lab values to exclude steatohepatitis. 2. Mildly prominent CBD, although no gallstones or inflammatory changes are seen. Head CT 04/28/19 00:00 IMPRESSION: NORMAL BRAIN CT WITHOUT CONTRAST. EVIDENCE OF ACUTE STROKE: NO. Chest/Abdomen CTA 04/28/19 01:00 IMPRESSION: 1. No evidence of pulmonary embolus. 2. No acute abnormality. Assessment and Plan - Diagnosis (1) Syncope Qualifiers: Syncope type: unspecified Qualified Code(s): R55 - Syncope and collapse Is this a current diagnosis for this admission?: Yes Plan: See the previous dictated subjective note - Time Time Spent with patient: 15-24 minutes
[2019-04-29] MEDS: NORMAL SALINE 1000 ML 1,000 ML IV PRN ×2 (10:05→16:07)
[2019-04-29 16:18] LABS: FOLATE > 20.00 ng/mL (>2.76)
[2019-04-29] MEDS: ACETAMINOPHEN 325 MG TABLET PO PRN (18:24)
--- NOTE | 2019-04-29 18:57 | XCELERA REPORT ---
[address] [address] Transthoracic Echocardiogram Report Name: CHITO GAMINO Age: 29 yrs Gender: Female : 1990 Patient Status: [facility] Study Date: 04/28/2019 09:58 AM Height: 64 in Weight: 218 lb BSA: 2.0 m2 Procedure: A two-dimensional transthoracic echocardiogram with color flow and Doppler was performed. Study Quality: Fair. Reason For Study: Syncope History: Syncope. Ordering Physician: ELIZABETH BELLA Performed By: Cierra Malave Interpretation Summary The left ventricle is normal in size. There is normal left ventricular wall thickness. LV EF is > than 65% Left ventricular systolic function is normal. Doppler measurements suggest normal left ventricular diastolic function The left ventricular wall motion is normal. There is no thrombus. No ASD ,VSD,or seen. The right ventricle is normal in size and function. The right atrium is normal. The left atrial size is normal. There is no evidence of mitral valve prolapse. There is a trace amount of mitral regurgitation There is no aortic valvular vegetation. There is no aortic valve stenosis There is no LVOT obstruction. No aortic regurgitation is present. There is no tricuspid stenosis. There is a trace amount of tricuspid regurgitation Right ventricular systolic pressure is normal. RVSP is 26 mm of Hg , with RA mean of 5. There is no pulmonic valvular stenosis. There is a trace amount of pulmonic regurgitation The aortic root is normal size. There is no pericardial effusion. MMode/2D Measurements & Calculations RVDd: 2.7 cm LVIDd: 5.3 cm FS: 43.9 % Ao root diam: 2.7 cm IVSd: 0.77 cm LVIDs: 3.0 cm EDV(Teich): LVPWd: 0.92 cm 137.8 ml Ao root area: ESV(Teich): 5.6 cm2 34.9 ml EF(Teich): 74.6 % EDV(MOD-sp4): SV(MOD-sp4): 106.3 ml 69.5 ml ESV(MOD-sp4): 36.9 ml EF(MOD-sp4): 65.3 % Doppler Measurements & Calculations MV E max otto: MV dec slope: Ao V2 max: LV V1 max P.0 cm/sec 124.1 cm/sec 3.1 mmHg MV A max otto: 593.6 cm/sec2 Ao max P.2 mmHgLV V1 max: 55.2 cm/sec MV dec time: 0.16 sec 87.8 cm/sec MV E/A: 1.7 PA V2 max: PI end-d otto: TR max otto: 87.7 cm/sec 67.1 cm/sec 228.6 cm/sec PA max P.1 mmHg TR max P.1 mmHg Left Ventricle The left ventricle is normal in size. There is normal left ventricular wall thickness. LV EF is > than 65%. Left ventricular systolic function is normal. Doppler measurements suggest normal left ventricular diastolic function. The left ventricular wall motion is normal. There is no thrombus. No ASD ,VSD,or seen. Right Ventricle The right ventricle is normal in size and function. Atria The right atrium is normal. The left atrial size is normal. Mitral Valve There is no evidence of mitral valve prolapse. There is no vegetation seen on the mitral valve. There is no mitral valve stenosis. There is a trace amount of mitral regurgitation. Aortic Valve There is no aortic valvular vegetation. There is no aortic valve stenosis. There is no LVOT obstruction. No aortic regurgitation is present. Tricuspid Valve There is no tricuspid stenosis. There is a trace amount of tricuspid regurgitation. Right ventricular systolic pressure is normal. RVSP is 26 mm of Hg , with RA mean of 5. Pulmonic Valve There is no pulmonic valvular stenosis. There is a trace amount of pulmonic regurgitation. Great Vessels The aortic root is normal size. Effusions There is no pericardial effusion. : ELIZABETH BELLA > Erna Gaspar
[2019-04-29] MEDS ORDERED: ONDANSETRON 4 MG TAB.RAPDIS PO PRN (19:04)
[2019-04-29] MEDS ORDERED: DOCUSATE SODIUM 100 MG CAPSULE PO PRN (19:05)
[2019-04-30] MEDS: NORMAL SALINE 1000 ML 1,000 ML IV PRN ×3 (01:48→17:17)
[2019-04-30] MEDS: LEVOTHYROXINE SODIUM 0.1 MG TABLET PO SCH (05:17)
[2019-04-30] MEDS: HEPARIN SOD (PORCINE) 5,000 UNIT/ML 1 ML VIAL SUBCUT SCH ×3 (05:17→21:17)
[2019-04-30] MEDS ORDERED: MECLIZINE HCL 12.5 MG TABLET PO PRN ×2 (09:41→13:30)
--- NOTE | 2019-04-30 09:58 | PDOC PROGRESS REPORT ---
Subjective Progress Note for:: 04/30/19 Subjective:: 04/30/2019 Patient is still complaining of vertiginous symptoms with any change in body position going from a lying to a sitting position she complains of spinning, tu rning her head from side to side she complains of spinning as well as nausea. She has had no vomiting. Symptoms are more pronounced today and in fact yesterday was only lightheaded when up and ambulatory. Today even at bedrest she has a symptoms I have mainly manually Dr. blood pressure today and is 108/80 in the right arm lying down. Her heart rate this morning was in the 60s and then several hours later was in the 40s. Echocardiogram has been done and shows no explanation. Official cardiology consults pending. Reason For Visit: CONTINUED DIZZINESS, ABNORMAL CARDIAC RHYTHM Physical Exam Vital Signs: Temp Pulse Resp BP Pulse Ox 98.9 F 46 L 16 101/60 100 04/30/19 03:36 04/30/19 07:00 04/30/19 03:36 04/30/19 03:36 04/30/19 03:36 Intake & Output 04/29/19 04/30/19 05/01/19 06:59 06:59 06:59 Intake Total 4100 3919 Output Total 2500 1200 Balance 1600 2719 Weight 99.5 kg 101.1 kg General appearance: PRESENT: no acute distress, well-developed, well-nourished Head exam: PRESENT: atraumatic, normocephalic Ear exam: PRESENT: normal external ear exam Respiratory exam: PRESENT: clear to auscultation lopez. ABSENT: rales, rhonchi, wheezes Cardiovascular exam: PRESENT: bradycardia. ABSENT: diastolic murmur, rubs, systolic murmur Neurological exam: PRESENT: alert, awake, oriented to person, oriented to place, oriented to time, oriented to situation, CN II-XII grossly intact, other - Turning her head from side to side she complains of vertigo. ABSENT: motor sensory deficit Results Laboratory Results: 04/27/19 23:06 04/27/19 23:06 04/29/19 09:56 Vitamin B12 274.0 Folate > 20.00 Impressions: Abdomen Ultrasound 04/27/19 23:16 IMPRESSION: 1. Hepatic steatosis. Correlate with lab values to exclude steatohepatitis. 2. Mildly prominent CBD, although no gallstones or inflammatory changes are seen. Head CT 04/28/19 00:00 IMPRESSION: NORMAL BRAIN CT WITHOUT CONTRAST. EVIDENCE OF ACUTE STROKE: NO. Chest/Abdomen CTA 04/28/19 01:00 IMPRESSION: 1. No evidence of pulmonary embolus. 2. No acute abnormality. Assessment and Plan - Diagnosis (1) Syncope Qualifiers: Syncope type: unspecified Qualified Code(s): R55 - Syncope and collapse Is this a current diagnosis for this admission?: Yes
[2019-04-30] MEDS ORDERED: MECLIZINE HCL 12.5 MG TABLET PO ONE (10:30)
[2019-04-30 11:28] LABS: ABSOLUTE EOSINOPHILS # (AUTO) 0.2 10^3/uL (0.0-0.6); ABSOLUTE LYMPHOCYTES (AUTO) 2.5 10^3/uL (0.5-4.7); ABSOLUTE MONOCYTES (AUTO) 0.3 10^3/uL (0.1-1.4); ABSOLUTE NEUT (AUTO) 3.2 10^3/uL (1.7-8.2); BASOPHILS % (AUTO) 0.7 % (0-2); EOSINOPHILS % (AUTO) 3.1 % (0-6); HEMATOCRIT 39.7 % (36.0-47.0); HEMOGLOBIN 13.5 g/dL (12.0-15.5); LYMPHOCYTES % (AUTO) 39.9 % (13-45); MEAN CORPUSCULAR HEMOGLOBIN 30.2 pg (27.0-33.4); MEAN CORPUSCULAR HGB CONC 33.9 g/dL (32.0-36.0); MEAN CORPUSCULAR VOLUME 89 fl (80-97); MONOCYTES % (AUTO) 5.4 % (3-13); PLATELET COUNT 297 10^3/uL (150-450); RED BLOOD COUNT 4.46 10^6/uL (3.72-5.28); SEGMENTED NEUTROPHILS % (AUTO) 50.9 % (42-78); TOTAL CELLS COUNTED % (AUTO) 100 %; WHITE BLOOD COUNT 6.4 10^3/uL (4.0-10.5)
[2019-04-30 11:56] LABS: ALANINE AMINOTRANSFERASE 42 U/L (9-52); ALBUMIN 3.9 g/dL (3.5-5.0); ALKALINE PHOSPHATASE 73 U/L (38-126); ANION GAP 8 (5-19); ASPARTATE AMINO TRANSFERASE 44 U/L (14-36); BILIRUBIN,DIRECT 0.2 mg/dL (0.0-0.4); BILIRUBIN,TOTAL 0.5 mg/dL (0.2-1.3); BLOOD UREA NITROGEN 5 mg/dL (7-20); CALCIUM 9.3 mg/dL (8.4-10.2); CARBON DIOXIDE 25 mmol/L (22-30); CHLORIDE 106 mmol/L (98-107); GLUCOSE 81 mg/dL (75-110); POTASSIUM 3.8 mmol/L (3.6-5.0); TOTAL PROTEIN 6.7 g/dL (6.3-8.2)
[2019-04-30 12:31] LABS: APPEARANCE,URINE CLEAR; BILIRUBIN,URINE NEGATIVE (NEGATIVE); COLOR,URINE STRAW; GLUCOSE, URINE NEGATIVE (NEGATIVE); KETONES,URINE 20 mg/dL (NEGATIVE); LEUKOCYTE ESTERASE,URINE NEGATIVE (NEGATIVE); NITRITE,URINE NEGATIVE (NEGATIVE); PROTEIN,URINE NEGATIVE (NEGATIVE); URINE SPECIFIC GRAVITY 1.005; UROBILINOGEN,URINE NEGATIVE mg/dL (<2.0)
--- NOTE | 2019-04-30 16:56 | Progress Note ---
Provider Note Provider Note: 04/30/2019 1700 hrs. Patient had told the nurse that she would like to be transferred to [facility] for her vertigo, however after discussion with Dr. Landeros there does not appear to be any medical necessity for transfer. Patient is actually improved as far as her vertigo symptoms. She is sitting up in bed looking at me talking with no nausea no vomiting and very little vertiginous symptoms
[2019-04-30] MEDS: MECLIZINE HCL 12.5 MG TABLET PO PRN (19:24)
[2019-05-01] MEDS: HEPARIN SOD (PORCINE) 5,000 UNIT/ML 1 ML VIAL SUBCUT SCH ×3 (05:21→21:35)
[2019-05-01] MEDS: LEVOTHYROXINE SODIUM 0.1 MG TABLET PO SCH (05:22)
[2019-05-01] MEDS: NORMAL SALINE 1000 ML 1,000 ML IV PRN (05:22)
[2019-05-01] MEDS: MECLIZINE HCL 12.5 MG TABLET PO PRN (09:59)
--- NOTE | 2019-05-01 11:31 | PDOC PROGRESS REPORT ---
Subjective Progress Note for:: 11/01/18 Subjective:: Patient was admitted early yesterday morning for symptoms that are suggestive for vertigo. Patient states her symptoms have been ongoing for approximately 2 weeks. Patient states that she has seen her primary care provider for this problem they were unable to come up with a diagnosis. Patient had gastric bypass surgery 7 months ago is lost 100 pounds since then. Patient also had pelvic surgery 3 months ago adhesions Patient states she still feels like she she is having the symptoms when she stands or ambulates. Patient denies vomiting. Patient also complains of numbness and tingling in both arms and both feet. Patient is also currently taking her vitamins as well as medicine for PTSD. Patient is a [id number] mom of a 2-year-old and 6-year-old. Basic labs are normal including TSH magnesium and other electrolytes CT head scan reveals no intracranial lesions. Echo is pending. Patient will have further labs today as well as physical therapy evaluation patient was told that she needs to secure help at home for anticipated discharge tomorrow. Patient was told that we may not have a definitive diagnosis at the time of discharge however we will be able to rule out certain etiologies patient has an appointment with her bariatric surgeon within the next 2 weeks. Review of orthostatic vital signs shows no gross abnormalities. All of patien samia's questions were answered 05/01/2019-29 old female comfortably in the bed still complaining of dizzy spells. Work-up so far negative. As per Dr. Gaspar's recommendation plan is to do the MRI of the neck and head today. Reason For Visit: CONTINUED DIZZINESS, ABNORMAL CARDIAC RHYTHM Physical Exam Vital Signs: Temp Pulse Resp BP Pulse Ox 98.7 F 58 L 14 107/64 100 05/01/19 08:00 05/01/19 08:00 05/01/19 08:00 05/01/19 08:00 05/01/19 08:00 Intake & Output 04/30/19 05/01/19 05/02/19 06:59 06:59 06:59 Intake Total 8159 5361 Output Total 1576 8295 Balance 2719 -990 Weight 101.1 kg 100.9 kg General appearance: PRESENT: no acute distress Head exam: PRESENT: atraumatic Eye exam: PRESENT: PERRLA Mouth exam: PRESENT: moist, tongue midline Teeth exam: PRESENT: poor dentation Neck exam: ABSENT: carotid bruit, JVD, lymphadenopathy, thyromegaly Respiratory exam: PRESENT: clear to auscultation lopez. ABSENT: rales, rhonchi, wheezes Cardiovascular exam: PRESENT: RRR. ABSENT: diastolic murmur, rubs, systolic murmur GI/Abdominal exam: PRESENT: normal bowel sounds, soft. ABSENT: distended, guarding, mass, organolmegaly, rebound, tenderness Rectal exam: PRESENT: deferred Extremities exam: PRESENT: full ROM. ABSENT: calf tenderness, clubbing, pedal edema Neurological exam: PRESENT: alert, awake, oriented to person, oriented to place, oriented to time, oriented to situation, CN II-XII grossly intact. ABSENT: motor sensory deficit Psychiatric exam: PRESENT: appropriate affect, normal mood. ABSENT: homicidal ideation, suicidal ideation Results Laboratory Results: 04/30/19 11:00 04/30/19 11:00 04/30/19 04/30/19 04/30/19 11:00 11:00 11:40 WBC 6.4 RBC 4.46 Hgb 13.5 Hct 39.7 MCV 89 MCH 30.2 MCHC 33.9 RDW 13.0 Plt Count 297 Seg Neutrophils % 50.9 Lymphocytes % 39.9 Monocytes % 5.4 Eosinophils % 3.1 Basophils % 0.7 Absolute Neutrophils 3.2 Absolute Lymphocytes 2.5 Absolute Monocytes 0.3 Absolute Eosinophils 0.2 Absolute Basophils 0.0 Sodium 139.2 Potassium 3.8 Chloride 106 Carbon Dioxide 25 Anion Gap 8 BUN 5 L Creatinine 0.50 L Est GFR ( Amer) > 60 Est GFR (Non-Af Amer) > 60 Glucose 81 Calcium 9.3 Total Bilirubin 0.5 AST 44 H ALT 42 Alkaline Phosphatase 73 Total Protein 6.7 Albumin 3.9 Urine Color STRAW Urine Appearance CLEAR Urine pH 8.0 Ur Specific Josephine 1.005 Urine Protein NEGATIVE Urine Glucose (UA) NEGATIVE Urine Ketones 20 H Urine Blood MODERATE H Urine Nitrite NEGATIVE Ur Leukocyte Esterase NEGATIVE Urine WBC (Auto) 1 Stool Occult Blood 04/30/19 20:13 WBC RBC Hgb Hct MCV MCH MCHC RDW Plt Count Seg Neutrophils % Lymphocytes % Monocytes % Eosinophils % Basophils % Absolute Neutrophils Absolute Lymphocytes Absolute Monocytes Absolute Eosinophils Absolute Basophils Sodium Potassium Chloride Carbon Dioxide Anion Gap BUN Creatinine Est GFR ( Amer) Est GFR (Non-Af Amer) Glucose Calcium Total Bilirubin AST ALT Alkaline Phosphatase Total Protein Albumin Urine Color Urine Appearance Urine pH Ur Specific [place] Urine Protein Urine Glucose (UA) Urine Ketones Urine Blood Urine Nitrite Ur Leukocyte Esterase Urine WBC (Auto) Stool Occult Blood NEGATIVE Impressions: Abdomen Ultrasound 04/27/19 23:16 IMPRESSION: 1. Hepatic steatosis. Correlate with lab values to exclude steatohepatitis. 2. Mildly prominent CBD, although no gallstones or inflammatory changes are seen. Head CT 04/28/19 00:00 IMPRESSION: NORMAL BRAIN CT WITHOUT CONTRAST. EVIDENCE OF ACUTE STROKE: NO. Chest/Abdomen CTA 04/28/19 01:00 IMPRESSION: 1. No evidence of pulmonary embolus. 2. No acute abnormality. Assessment and Plan - Diagnosis (1) Bradycardia Is this a current diagnosis for this admission?: Yes Plan: Cardiology consult pending 05/01/2019-patient heart rate this morning is 67. Plan is to hold Antivert because of this possibility of bradycardia with meclizine. (2) Syncope Qualifiers: Syncope type: unspecified Qualified Code(s): R55 - Syncope and collapse Is this a current diagnosis for this admission?: Yes Plan: See the previous dictated subjective note 04/30/2019 Cardiology consult pending 05/01/2019-patient still complaining of syncope symptoms dizziness. Work-up so far negative. Echocardiogram was normal. MRI of the brain was negative. Plan is to do the MRI of the neck and head to rule out any vertebral vertebral artery stenosis. (3) Orthostasis Is this a current diagnosis for this admission?: Yes Plan: Appears euvolemic but having tachycardia upon standing, MARIA stockings, orthostatic blood pressure, follow-up 2D echo given unknown family history. 05/01/2019-patient blood pressure today is 112/63 no evidence of orthostasis. (4) Obesity (BMI 30-39.9) Is this a current diagnosis for this admission?: No Plan: 05/01/2019-patient's BMI is more than 38 diet exercise weight loss lifestyle modifications are discussed with the patient. - Time Time Spent with patient: 25-34 minutes Medications reviewed and adjusted accordingly: Yes Anticipated discharge: Home
--- NOTE | 2019-05-01 14:17 | RADIOLOGY REPORT (SQ) ---
EXAM DESCRIPTION: MRA NECK WITHOUT COMPLETED DATE/TIME: 05/01/2019 2:04 pm REASON FOR STUDY: Vertigo/dizziness COMPARISON: None. TECHNIQUE: Axial 2-D volume acquisition imaging through the extracranial carotid and vertebral arter ies with reformatting using 3-D MIPS. LIMITATIONS: None. FINDINGS: RIGHT CAROTID ARTERY: No stenosis or occlusive changes. Limited visualization of the orig in. LEFT CAROTID ARTERY: No stenosis or occlusive changes. Limited visualization of the origin. VERTEBRAL ARTERY: The extracranial portions of the vertebral basilar system are preserved without jett nosis. No aneurysmal dilatation or dissection is seen. OTHER: No other significant finding. IMPRESSION: NO SIGNIFICANT STENOSIS. COMMENT: Quality ID #[id number]: Measurements of distal internal carotid diameter were used as the denomin ator for stenosis measurement. TECHNICAL DOCUMENTATION: JOB ID: [id number] [employer]- All Rights Reserved Reading location - IP/workstation name: [email or web address]
--- NOTE | 2019-05-01 14:19 | RADIOLOGY REPORT (SQ) ---
EXAM DESCRIPTION: MRA HEAD WITHOUT COMPLETED DATE/TIME: 05/01/2019 2:04 pm REASON FOR STUDY: STENOSIS COMPARISON: None. TECHNIQUE: Axial 3-D [id number] acquisition imaging performed through the brain in the area of t he [place]. Images reformatted using 3-D MIPS. LIMITATIONS: None. FINDINGS: SOURCE IMAGES: No unexpected findings on source images. No large masses. 3-D MIP: No aneurysm. No occlusions. No significant stenosis. OTHER: No other significant finding. IMPRESSION: NORMAL MRA OF THE [place]. TECHNICAL DOCUMENTATION: JOB ID: [id number] [employer]- All Rights Reserved Reading location - IP/workstation name: [email or web address]
[2019-05-01] MEDS: ACETAMINOPHEN 325 MG TABLET PO PRN (18:54)
[2019-05-02 04:29] LABS: ABSOLUTE EOSINOPHILS # (AUTO) 0.3 10^3/uL (0.0-0.6); ABSOLUTE MONOCYTES (AUTO) 0.5 10^3/uL (0.1-1.4); ABSOLUTE NEUT (AUTO) 2.8 10^3/uL (1.7-8.2); BASOPHILS % (AUTO) 0.6 % (0-2); EOSINOPHILS % (AUTO) 4.4 % (0-6); HEMATOCRIT 38.9 % (36.0-47.0); HEMOGLOBIN 13.4 g/dL (12.0-15.5); LYMPHOCYTES % (AUTO) 51.6 % (13-45); MEAN CORPUSCULAR HEMOGLOBIN 30.6 pg (27.0-33.4); MEAN CORPUSCULAR HGB CONC 34.4 g/dL (32.0-36.0); MEAN CORPUSCULAR VOLUME 89 fl (80-97); PLATELET COUNT 303 10^3/uL (150-450); RED BLOOD COUNT 4.38 10^6/uL (3.72-5.28); RED CELL DISTRIBUTION WIDTH 13.3 % (11.5-14.0); SEGMENTED NEUTROPHILS % (AUTO) 36.4 % (42-78); TOTAL CELLS COUNTED % (AUTO) 100 %; WHITE BLOOD COUNT 7.7 10^3/uL (4.0-10.5)
[2019-05-02 04:49] LABS: ALANINE AMINOTRANSFERASE 41 U/L (9-52); ALBUMIN 3.9 g/dL (3.5-5.0); ALKALINE PHOSPHATASE 75 U/L (38-126); ANION GAP 8 (5-19); ASPARTATE AMINO TRANSFERASE 42 U/L (14-36); BILIRUBIN,DIRECT 0.2 mg/dL (0.0-0.4); BILIRUBIN,TOTAL 0.4 mg/dL (0.2-1.3); BLOOD UREA NITROGEN 6 mg/dL (7-20); CALCIUM 9.6 mg/dL (8.4-10.2); CARBON DIOXIDE 28 mmol/L (22-30); CHLORIDE 105 mmol/L (98-107); GLUCOSE 83 mg/dL (75-110); POTASSIUM 3.9 mmol/L (3.6-5.0); TOTAL PROTEIN 6.8 g/dL (6.3-8.2)
[2019-05-02] MEDS ORDERED: LEVOTHYROXINE SODIUM 0.1 MG TABLET PO SCH (06:00)
[2019-05-02] MEDS: HEPARIN SOD (PORCINE) 5,000 UNIT/ML 1 ML VIAL SUBCUT SCH (06:07)
[2019-05-02] MEDS ORDERED: [UNRECOGNIZED DRUG - OTHER] PO SCH (10:00)
[2019-05-02] MEDS ORDERED: FOLIC ACID PO SCH (10:00)
[2019-05-02] MEDS ORDERED: IRON PO SCH (10:00)
[2019-05-02] MEDS ORDERED: MULTIVIT MIN PO SCH (10:00)
--- NOTE | 2019-05-02 12:10 | Progress Note ---
Provider Note Provider Note: 05/02/2019 Patient's is out this week till Sunday,until they 05 May. Was due to his being in the hospital. Rajendra Diaz
[2019-05-02 12:13] VITALS: BP 111/61
--- NOTE | 2019-05-02 15:18 | PDOC DISCHARGE SUMMARY ---
General - Admit/Disc Date/PCP Admission Date/Primary Care Provider: 04/29/19 16:21 Discharge Date: 05/02/19 - Discharge Diagnosis (1) Syncope Is this a current diagnosis for this admission?: Yes Summary: 05/02/2019 patient had no episodes of syncope while in the hospital. (2) Vertigo Is this a current diagnosis for this admission?: Yes Summary: 05/02/2019 patient had a multitude of studies performed while in the hospital, looking for pathology for her vertigo. CT and MRI of the brain were both negative, CTA of the neck was negative for pathology. Patient was seen by cardiology for this complaint and no cardiac etiology was found. (3) Bradycardia Is this a current diagnosis for this admission?: Yes Summary: 05/02/2019 patient would become bradycardic when she developed vertigo-like symptoms, however this would resolve quickly - Additional Information Resuscitation Status: Full Code Discharge Diet: As Tolerated Discharge Activity: No Driving, Slowly Increase Activity, Supervised Activity Prescriptions: Meclizine HCl [Antivert 12.5 mg Tablet] 12.5 mg PO Q6H PRN #20 tablet PRN Reason: vertigo Home Medications: Levothyroxine Sodium [Synthroid] 200 mcg PO Q6AM 04/28/19 Multivit-Min/Iron/Folic Acid/K [Bariatric Mv-Iron 45 mg Cap] 1 each PO DAILY 04/28/19 Meclizine HCl [Antivert 12.5 mg Tablet] 12.5 mg PO Q6H PRN #20 tablet 05/02/19 History of Present Illness History of Present Illness: CHITO GAMINO is a 29 year old female Hospital Course Hospital Course: 05/02/2019 Patient had a cardiology consult ordered and performed due to bradycardia. Cardiology did not find any source for her symptoms. Patient had echo as well as several EKGs showing no significant pathology. As stated earlier patient also had a CT head scan and MRI scan and an MRA of her neck shows, all 3 studies were normal. Patient had thyroid functions checked which were normal she had B12 and folate which were normal. Should also add the patient had a urine test that was negative Patient after admitted and while in the hospital did have episodes of benign positional vertigo which would resolve continuously. Patient also was treated with Antivert 12.5 mg and this also was effective in treating her symptoms. However if the dose was up to 25 mg patient became somnolent. At the time of discharge patient has an appointment with her bariatric surgeon 3 days from now in [place]. Patient was told that it may take several more days or even weeks for the vertigo to clear. Patient was told not to drive until the symptoms resolve completely. Patient was given a prescription Antivert 12.5 mg 20 tablets and a note stating that her needed to be home this week to care for HER-2 children while she was in the hospital. Physical Exam Vital Signs: Temp Pulse Resp BP Pulse Ox 99 F 58 L 12 111/61 98 05/02/19 12:00 05/02/19 12:00 05/02/19 12:00 05/02/19 12:00 05/02/19 12:00 Intake & Output 05/01/19 05/02/19 05/03/19 06:59 06:59 06:59 Intake Total 3791 2071 240 Output Total 4175 1800 Balance -384 271 240 Weight 100.9 kg 102.7 kg Results Laboratory Results: 05/02/19 03:34 05/02/19 03:34 05/02/19 05/02/19 03:34 03:34 WBC 7.7 RBC 4.38 Hgb 13.4 Hct 38.9 MCV 89 MCH 30.6 MCHC 34.4 RDW 13.3 Plt Count 303 Seg Neutrophils % 36.4 L Lymphocytes % 51.6 H Monocytes % 7.0 Eosinophils % 4.4 Basophils % 0.6 Absolute Neutrophils 2.8 Absolute Lymphocytes 4.0 Absolute Monocytes 0.5 Absolute Eosinophils 0.3 Absolute Basophils 0.0 Sodium 141.1 Potassium 3.9 Chloride 105 Carbon Dioxide 28 Anion Gap 8 BUN 6 L Creatinine 0.56 Est GFR ( Amer) > 60 Est GFR (Non-Af Amer) > 60 Glucose 83 Calcium 9.6 Magnesium 1.9 Total Bilirubin 0.4 AST 42 H ALT 41 Alkaline Phosphatase 75 Total Protein 6.8 Albumin 3.9 Impressions: Abdomen Ultrasound 04/27/19 23:16 IMPRESSION: 1. Hepatic steatosis. Correlate with lab values to exclude steatohepatitis. 2. Mildly prominent CBD, although no gallstones or inflammatory changes are seen. Head CT 04/28/19 00:00 IMPRESSION: NORMAL BRAIN CT WITHOUT CONTRAST. EVIDENCE OF ACUTE STROKE: NO. Chest/Abdomen CTA 04/28/19 01:00 IMPRESSION: 1. No evidence of pulmonary embolus. 2. No acute abnormality. Brain MRI with MRA 05/01/19 00:00 IMPRESSION: NORMAL MRA OF THE [place]. Neck MRA 05/01/19 00:00 IMPRESSION: NO SIGNIFICANT STENOSIS. Qualifiers - * PATIENT BEING DISCHARGED WITH ANY OF THE FOLLOWING DIAGNOSIS: No Reason(s) for not prescribing Overlap Therapy:: Contraindicated Acute Heart Failure - Is this a Heart Failure Patient?: No Plan Time Spent: Greater than 30 Minutes - Patient was sent home with a prescription for Antivert as well as a walker for stability with gait. Patient was told to follow-up with her bariatric surgeon and neurology if needed.
== END 2019-05-02 13:36 | disposition home or self-care (01) | DRG 312 ==
LOC: ER 20:55 → OBSVTOIN 04-28 05:03 → EH 04-28 05:03 → INTOOBSV 04-28 05:03 → 5 04-28 06:30 → OBSVTOIN 04-29 16:21
PROVIDERS: ADMIT Internal Medicine; ATTEND Internal Medicine
DX: I95.1 Orthostatic hypotension (principal); R42 Dizziness and giddiness; R00.1 Bradycardia, unspecified; E66.01 Morbid (severe) obesity due to excess calories; E11.9 Type 2 diabetes mellitus without complications; E05.00 Thyrotoxicosis with diffuse goiter without thyrotoxic crisis or storm; F32.9 Major depressive disorder, single episode, unspecified; F43.10 Post-traumatic stress disorder, unspecified; K75.81 Nonalcoholic steatohepatitis (NASH); Z68.38 Body mass index [BMI] 38.0-38.9, adult; Z98.84 Bariatric surgery status; Z79.899 Other long term (current) drug therapy; Z88.6 Allergy status to analgesic agent; Z88.0 Allergy status to penicillin; Z91.048 Other nonmedicinal substance allergy status
CPT/HCPCS: 36415; 70450; 70544; 70547; 71275; 76705; 80053; 80307; 81001; 82272; 82607; 82746; 83735; 84439; 84443; 84703; 85025; 85610; 85730; 86850; 86900; 86901; 93005; 93010; 93306; 93976; 96361; 96374; 99285; G0378; J1644; J3010; J3490; J7030; J7120; S0119

== ENCOUNTER 2019-07-02 20:52 | Emergency (ER) | payer MEDICAID ==
--- NOTE | 2019-07-02 21:39 | ER Document Report ---
ED Medical Screen (RME) - General Chief Complaint: Weakness Stated Complaint: WEAKNESS Time Seen by Provider: 07/02/19 21:35 Mode of Arrival: Wheelchair Information source: Patient Notes: Patient presents emergency department with reports of history of pots just diagnosed at [facility]. Also reports they are working her up for lupus. Reports she passed out 3 times today. First time while she was sitting on a park bench second time on the couch third time on her bed. Also complains of nausea and joint pain. Denies fever vomiting diarrhea. Also reports she is only voided twice today. I have greeted and performed a rapid initial assessment of this patient. A comprehensive ED assessment and evaluation of the patient, analysis of test results and completion of the medical decision making process will be conducted by additional ED providers. Dictation of this chart was performed using voice recognition software; therefore, there may be some unintended grammatical errors. TRAVEL OUTSIDE OF THE [place] IN LAST 30 DAYS: No - Related Data Allergies/Adverse Reactions: Penicillins Allergy (Verified 04/27/19 23:35) Rash hydrocodone Adverse Reaction (Verified 04/27/19 23:35) Nausea, vomiting oxycodone Adverse Reaction (Verified 04/27/19 23:35) Nausea, vomiting Surgical Glue Adverse Reaction (Uncoded 04/27/19 23:35) Rash Past Medical History - Social History Frequency of alcohol use: None Drug Abuse: None - Past Medical History Cardiac Medical History: Denies: Hx Coronary Artery Disease, Hx Heart Attack, Hx Hypertension Pulmonary Medical History: Denies: Hx Asthma, Hx Bronchitis, Hx COPD, Hx Pneumonia Neurological Medical History: Denies: Hx Cerebrovascular Accident, Hx Seizures Endocrine Medical History: Reports: Hx Graves' Disease Renal/ Medical History: Denies: Hx Peritoneal Dialysis Musculoskeltal Medical History: Denies Hx Arthritis Psychiatric Medical History: Reports: Hx Depression, Hx Post Traumatic Stress Disorder Past Surgical History: Reports: Hx Abdominal Surgery - gastric bypass, Hx Appendectomy, Hx Tonsillectomy - Immunizations Hx Diphtheria, Pertussis, Tetanus Vaccination: Yes History of Influenza Vaccine for 07/2017 - 12/2017 Season: No Physical Exam - Vital signs Vitals: Temp Pulse Resp BP Pulse Ox 98.0 F 89 16 110/68 98 07/02/19 21:22 07/02/19 21:22 07/02/19 21:22 07/02/19 21:22 07/02/19 21:22 Course - Vital Signs Vital signs: Temp Pulse Resp BP Pulse Ox 98.0 F 89 16 110/68 98 07/02/19 21:22 07/02/19 21:22 07/02/19 21:22 07/02/19 21:22 07/02/19 21:22
[2019-07-02 22:17] LABS: ABSOLUTE BASOPHILS # (AUTO) 0.1 10^3/uL (0.0-0.2); ABSOLUTE EOSINOPHILS # (AUTO) 0.3 10^3/uL (0.0-0.6); ABSOLUTE LYMPHOCYTES (AUTO) 3.2 10^3/uL (0.5-4.7); ABSOLUTE MONOCYTES (AUTO) 0.5 10^3/uL (0.1-1.4); ABSOLUTE NEUT (AUTO) 4.1 10^3/uL (1.7-8.2); BASOPHILS % (AUTO) 0.9 % (0-2); EOSINOPHILS % (AUTO) 3.3 % (0-6); HEMATOCRIT 41.5 % (36.0-47.0); HEMOGLOBIN 14.2 g/dL (12.0-15.5); LYMPHOCYTES % (AUTO) 39.8 % (13-45); MEAN CORPUSCULAR HEMOGLOBIN 30.5 pg (27.0-33.4); MEAN CORPUSCULAR HGB CONC 34.1 g/dL (32.0-36.0); MEAN CORPUSCULAR VOLUME 89 fl (80-97); MONOCYTES % (AUTO) 5.8 % (3-13); PLATELET COUNT 386 10^3/uL (150-450); RED BLOOD COUNT 4.65 10^6/uL (3.72-5.28); RED CELL DISTRIBUTION WIDTH 14.1 % (11.5-14.0); SEGMENTED NEUTROPHILS % (AUTO) 50.2 % (42-78); TOTAL CELLS COUNTED % (AUTO) 100 %; WHITE BLOOD COUNT 8.1 10^3/uL (4.0-10.5)
[2019-07-02 22:27] LABS: ALBUMIN 4.4 g/dL (3.5-5.0); ALKALINE PHOSPHATASE 97 U/L (38-126); ANION GAP 10 (5-19); ASPARTATE AMINO TRANSFERASE 53 U/L (14-36); BILIRUBIN,DIRECT 0.1 mg/dL (0.0-0.4); BILIRUBIN,TOTAL 0.3 mg/dL (0.2-1.3); BLOOD UREA NITROGEN 6 mg/dL (7-20); CALCIUM 9.5 mg/dL (8.4-10.2); CARBON DIOXIDE 28 mmol/L (22-30); CHLORIDE 102 mmol/L (98-107); GLUCOSE 91 mg/dL (75-110); POTASSIUM 4.2 mmol/L (3.6-5.0); TOTAL PROTEIN 7.2 g/dL (6.3-8.2)
[2019-07-02] MEDS ORDERED: RINGERS SOLUTION,LACTATED 1,000 ML IV ONE (23:53)
--- NOTE | 2019-07-02 23:56 | ER Document Report ---
ED General - General Chief Complaint: Weakness Stated Complaint: WEAKNESS Time Seen by Provider: 07/02/19 21:35 Mode of Arrival: Wheelchair TRAVEL OUTSIDE OF THE [place].S. IN LAST 30 DAYS: No - HPI Notes: 29-year-old female complicated history and recent diagnosis of POTS presents wit h dizziness and syncope/near syncope. Patient had extensive work-up over the last several months including a prolonged admission here at [place] where she underwent MRI, CT angiogram, echo and multiple other diagnostic modalities and surgery for a cause for her dizziness and at that time with a thought was vertigo. Today she states that she had 3 episodes where she became dizzy, especially when she had moved, and almost passed out or transiently passed out for less than a second. No headache, no loss of bowel or bladder, no seizure activity. Witnessed by her . Feels mildly weak at this time. She also relates pain in her small joints and wrist and shoulders and hips over the last 2 to 3 weeks as well as a papular erythematous rash on her right forearm which is been there for 2 months. She is seen her primary care doctor for this and is being sent to a dry plasterer to be worked up for "lupus". Moderate intensity, gradual onset, nonradiating. No associated chest pain. No use of illicit drugs. Does not think she is . No pleuritic or other chest pain. No other modifying factors, no other associated symptoms, no other provocative or palliative factors. - Related Data Allergies/Adverse Reactions: Penicillins Allergy (Verified 04/27/19 23:35) Rash hydrocodone Adverse Reaction (Verified 04/27/19 23:35) Nausea, vomiting oxycodone Adverse Reaction (Verified 04/27/19 23:35) Nausea, vomiting Surgical Glue Adverse Reaction (Uncoded 04/27/19 23:35) Rash Past Medical History - General Information source: Patient - Social History Smoking Status: Never Smoker Frequency of alcohol use: None Drug Abuse: None Family History: Other - Unknown Patient has suicidal ideation: No Patient has homicidal ideation: No - Medical History Notes: POTS - Past Medical History Cardiac Medical History: Denies: Hx Coronary Artery Disease, Hx Heart Attack, Hx Hypertension Pulmonary Medical History: Denies: Hx Asthma, Hx Bronchitis, Hx COPD, Hx Pneumonia Neurological Medical History: Denies: Hx Cerebrovascular Accident, Hx Seizures Endocrine Medical History: Reports: Hx Graves' Disease Renal/ Medical History: Denies: Hx Peritoneal Dialysis Musculoskeletal Medical History: Denies Hx Arthritis Psychiatric Medical History: Reports: Hx Depression, Hx Post Traumatic Stress Disorder Past Surgical History: Reports: Hx Abdominal Surgery - gastric bypass, Hx Appendectomy, Hx Tonsillectomy - Immunizations Hx Diphtheria, Pertussis, Tetanus Vaccination: Yes Review of Systems - Review of Systems Notes: Review of systems as in the history of present illness, otherwise negative x 10 systems. Physical Exam - Vital signs Vitals: Temp Pulse Resp BP Pulse Ox 98.0 F 89 16 110/68 98 07/02/19 21:22 07/02/19 21:22 07/02/19 21:22 07/02/19 21:22 07/02/19 21:22 - Notes Notes: General: Well developed . HEENT: Normocephalic, atraumatic. Pupils equal round reactive to light. No JVD. Chest: No trauma. Respiratory: Good air exchange, normal excursion. Cardiac: Regular rhythm. No murmurs or gallops. Abdomen: Soft, benign. Nondistended. Nontender. Back: No asymmetry or gross abnormality. Motor: Grossly normal power and tone. Neurologic: Alert, nonfocal. Cranial nerves II-12 are intact. Sensation intact. Vascular: Well perfused. Normal peripheral pulses. Skin: No petechiae or purpura. Course - Re-evaluation Re-evalutation: 07/02/19 23:56 Patient was evaluated by the [facility] provider prior to my evaluation. Studies / interventions have been ordered by this provider and may still be pending. Well-appearing female the after mentioned symptoms. Likely related to her POTS. I reviewed her records from her prior admission and she had negative work-up including angiography and imaging of the brain. This is unlikely be arrhythmia, no evidence of stroke, no evidence to support intracranial emergency. Doubt venous thrombi embolism. Patient request will proceed with IV hydration, I will labs at this time showed unremarkable CBC and chemistries. I am currently waiting on urine test. 07/03/19 02:15 Patient feels substantially better after IV hydration. She has refused to wait for urine test and understands the risks including missed or delayed diagnosis of related emergency. We will follow-up with your primary care doctor tomorrow. - Vital Signs Vital signs: Temp Pulse Resp BP Pulse Ox 98.0 F 89 16 110/68 98 07/02/19 21:22 07/02/19 21:22 07/02/19 21:22 07/02/19 21:22 07/02/19 21:22 - Laboratory Result Diagrams: 07/02/19 22:02 07/02/19 22:02 Laboratory results interpreted by me: 07/02/19 07/02/19 22:02 22:02 RDW 14.1 H BUN 6 L AST 53 H - EKG Interpretation by Me EKG shows normal: Sinus rhythm, [place], Intervals, QRS Complexes, ST-T Waves - Nonspecific ST-T changes, no significant address change clerk baseline Discharge - Discharge Clinical Impression: Near syncope Condition: Good Disposition: HOME, SELF-CARE Instructions: Weakness ([facility]), Near Syncopal Episode ([facility]) Additional Instructions: See your primary care doctor tomorrow.
[2019-07-03] MEDS ORDERED: TRAMADOL HCL 50 MG TABLET PO ONE (00:47)
[2019-07-03] MEDS ORDERED: RINGERS SOLUTION,LACTATED 1,000 ML IV ONE (02:44)
[2019-07-03 04:10] VITALS: BP 168/74
--- NOTE | 2019-07-03 09:10 | EKG REPORT ---
SEVERITY:- BORDERLINE ECG - SINUS RHYTHM BORDERLINE T ABNORMALITIES, ANTERIOR LEADS : Confirmed by: Bharathi Bhat 03-Jul-2019 09:09:38
== END 2019-07-03 04:09 | disposition home or self-care (01) ==
LOC: ER 20:52
DX: R55 Syncope and collapse (principal); R53.1 Weakness; R42 Dizziness and giddiness; I49.8 Other specified cardiac arrhythmias
CPT/HCPCS: 93005; 99284; 96360; 96361; 36415; 85025; 80053; 93010; J7120

== ENCOUNTER 2019-07-09 17:02 | Emergency (ER) | payer MEDICAID ==
--- NOTE | 2019-07-09 17:37 | ER Document Report ---
ED Medical Screen (RME) - General Chief Complaint: General Weakness Stated Complaint: SYNCOPE Time Seen by Provider: 07/09/19 17:30 Mode of Arrival: Wheelchair Information source: Patient Notes: 29-year-old female presented to ED for complaint of syncopal episode today. She states she was in the bed with her son when it happened. She states she woke up and was unable to move her legs. She does not know how long she was unconscious but she was not able to move her neck for about 10 minutes. She states she was also very sweaty when she woke up. She states she called her had him bring her to the emergency room. She states she has a history of pots and SVT. I did look in her history and I do not see a history of SVT. She states she also has a history of fatty liver and cirrhosis. I did see a history of fatty liver in her history but not cirrhosis. States she also has a history of hypothyroidism. Patient is alert oriented respirations regular and unlabored speaking in full sentences. I have greeted and performed a rapid initial assessment of this patient. A comprehensive ED assessment and evaluation of the patient, analysis of test results and completion of medical decision making process will be conducted by an additional ED providers. TRAVEL OUTSIDE OF THE [place] IN LAST 30 DAYS: No - Related Data Allergies/Adverse Reactions: Penicillins Allergy (Verified 04/27/19 23:35) Rash hydrocodone Adverse Reaction (Verified 04/27/19 23:35) Nausea, vomiting oxycodone Adverse Reaction (Verified 04/27/19 23:35) Nausea, vomiting Surgical Glue Adverse Reaction (Uncoded 04/27/19 23:35) Rash Past Medical History - Past Medical History Cardiac Medical History: Denies: Hx Coronary Artery Disease, Hx Heart Attack, Hx Hypertension Pulmonary Medical History: Denies: Hx Asthma, Hx Bronchitis, Hx COPD, Hx Pneumonia Neurological Medical History: Denies: Hx Cerebrovascular Accident, Hx Seizures Endocrine Medical History: Reports: Hx Graves' Disease Renal/ Medical History: Denies: Hx Peritoneal Dialysis Musculoskeltal Medical History: Denies Hx Arthritis Psychiatric Medical History: Reports: Hx Depression, Hx Post Traumatic Stress Disorder Past Surgical History: Reports: Hx Abdominal Surgery - gastric bypass, Hx Appendectomy, Hx Tonsillectomy - Immunizations Hx Diphtheria, Pertussis, Tetanus Vaccination: Yes Physical Exam - Vital signs Vitals: Temp Pulse Resp BP Pulse Ox 97.9 F 84 18 117/77 100 07/09/19 17:07 07/09/19 17:07 07/09/19 17:07 07/09/19 17:07 07/09/19 17:07 Course - Vital Signs Vital signs: Temp Pulse Resp BP Pulse Ox 97.9 F 84 18 117/77 100 07/09/19 17:07 07/09/19 17:07 07/09/19 17:07 07/09/19 17:07 07/09/19 17:07
[2019-07-09 18:38] LABS: ABSOLUTE EOSINOPHILS # (AUTO) 0.3 10^3/uL (0.0-0.6); ABSOLUTE LYMPHOCYTES (AUTO) 3.1 10^3/uL (0.5-4.7); ABSOLUTE MONOCYTES (AUTO) 0.4 10^3/uL (0.1-1.4); ABSOLUTE NEUT (AUTO) 2.5 10^3/uL (1.7-8.2); BASOPHILS % (AUTO) 0.8 % (0-2); EOSINOPHILS % (AUTO) 4.1 % (0-6); HEMATOCRIT 41.5 % (36.0-47.0); LYMPHOCYTES % (AUTO) 49.1 % (13-45); MEAN CORPUSCULAR HEMOGLOBIN 30.2 pg (27.0-33.4); MEAN CORPUSCULAR HGB CONC 33.8 g/dL (32.0-36.0); MEAN CORPUSCULAR VOLUME 90 fl (80-97); MONOCYTES % (AUTO) 6.1 % (3-13); PLATELET COUNT 364 10^3/uL (150-450); RED BLOOD COUNT 4.64 10^6/uL (3.72-5.28); RED CELL DISTRIBUTION WIDTH 13.7 % (11.5-14.0); SEGMENTED NEUTROPHILS % (AUTO) 39.9 % (42-78); TOTAL CELLS COUNTED % (AUTO) 100 %; WHITE BLOOD COUNT 6.4 10^3/uL (4.0-10.5)
[2019-07-09 18:45] LABS: APPEARANCE,URINE SLIGHTLY-CLOUDY; BILIRUBIN,URINE NEGATIVE (NEGATIVE); COLOR,URINE YELLOW; GLUCOSE, URINE NEGATIVE (NEGATIVE); KETONES,URINE NEGATIVE (NEGATIVE); LEUKOCYTE ESTERASE,URINE NEGATIVE (NEGATIVE); NITRITE,URINE NEGATIVE (NEGATIVE); PROTEIN,URINE 30 mg/dL (NEGATIVE); URINE SPECIFIC GRAVITY 1.029
[2019-07-09 19:04] LABS: ALBUMIN 4.6 g/dL (3.5-5.0); ALKALINE PHOSPHATASE 80 U/L (38-126); ANION GAP 10 (5-19); ASPARTATE AMINO TRANSFERASE 41 U/L (14-36); BILIRUBIN,DIRECT 0.1 mg/dL (0.0-0.4); BILIRUBIN,TOTAL 0.4 mg/dL (0.2-1.3); BLOOD UREA NITROGEN 7 mg/dL (7-20); CALCIUM 9.9 mg/dL (8.4-10.2); CARBON DIOXIDE 30 mmol/L (22-30); CHLORIDE 102 mmol/L (98-107); CREATINE KINASE 31 U/L (30-135); GLUCOSE 89 mg/dL (75-110); POTASSIUM 4.2 mmol/L (3.6-5.0); TOTAL PROTEIN 7.9 g/dL (6.3-8.2)
[2019-07-09 19:05] LABS: URINE AMPHETAMINES SCREEN NEGATIVE; URINE BARBITURATES SCREEN NEGATIVE; URINE BENZODIAZEPINES SCREEN NEGATIVE; URINE COCAINE SCREEN NEGATIVE; URINE MARIJUANA (THC) SCREEN NEGATIVE; URINE METHADONE SCREEN NEGATIVE; URINE PHENCYCLIDINE SCREEN NEGATIVE
[2019-07-09 19:24] LABS: CREATINE KINASE MB < 0.22 ng/mL (<4.55); TROPONIN I < 0.012 ng/mL
--- NOTE | 2019-07-09 19:53 | EKG REPORT ---
SEVERITY:- NORMAL ECG - SINUS RHYTHM : Confirmed by: Erna Gaspar MD 09-Jul-2019 19:53:14
--- NOTE | 2019-07-09 21:29 | ER Document Report ---
ED Dizziness/Weakness - General Chief Complaint: Syncope Stated Complaint: SYNCOPE Time Seen by Provider: 07/09/19 17:30 Mode of Arrival: Wheelchair Information source: Patient TRAVEL OUTSIDE OF THE [place] IN LAST 30 DAYS: No - HPI Notes: Patient presents stating that she passed out at home. She states she passed out while laying in her bed. She states she does not know how long she was unconscious but when she woke up she could not move her legs. She states that she could move her legs for about 10 minutes. She states all the symptoms have now resolved. She states she is recently been diagnosed with multiple medical problems including vásquez, arthritis, lupus, SVT, and thyroid disease. Symptoms were apparently severe. They were constant. Nothing made them better or worse. There is no known radiation of symptoms. Symptoms now have resolved. No recent fever. No nausea vomiting or diarrhea. No tick bites. - Related Data Allergies/Adverse Reactions: Penicillins Allergy (Verified 04/27/19 23:35) Rash hydrocodone Adverse Reaction (Verified 04/27/19 23:35) Nausea, vomiting oxycodone Adverse Reaction (Verified 04/27/19 23:35) Nausea, vomiting Surgical Glue Adverse Reaction (Uncoded 04/27/19 23:35) Rash Past Medical History - General Information source: Patient - Social History Smoking Status: Never Smoker Chew tobacco use (# tins/day): No Frequency of alcohol use: None Drug Abuse: None Family History: Reviewed & Not Pertinent, Other - Unknown Patient has suicidal ideation: No Patient has homicidal ideation: No - Past Medical History Cardiac Medical History: Denies: Hx Coronary Artery Disease, Hx Heart Attack, Hx Hypertension Pulmonary Medical History: Denies: Hx Asthma, Hx Bronchitis, Hx COPD, Hx Pneumonia Neurological Medical History: Denies: Hx Cerebrovascular Accident, Hx Seizures Endocrine Medical History: Reports: Hx Graves' Disease Renal/ Medical History: Denies: Hx Peritoneal Dialysis Musculoskeletal Medical History: Denies Hx Arthritis Psychiatric Medical History: Reports: Hx Depression, Hx Post Traumatic Stress Disorder Past Surgical History: Reports: Hx Abdominal Surgery - gastric bypass, Hx Appendectomy, Hx Tonsillectomy - Immunizations Hx Diphtheria, Pertussis, Tetanus Vaccination: Yes Review of Systems - Review of Systems Constitutional: denies: Chills, Fever Respiratory: denies: Cough, Short of breath Gastrointestinal: denies: Diarrhea, Vomiting -: Yes All other systems reviewed and negative Physical Exam - Vital signs Vitals: Temp Pulse Resp BP Pulse Ox 97.9 F 84 18 117/77 100 07/09/19 17:07 07/09/19 17:07 07/09/19 17:07 07/09/19 17:07 07/09/19 17:07 Interpretation: Normal - General General appearance: Appears well, Alert - HEENT Head: Normocephalic, Atraumatic Eyes: Normal Pupils: PERRL - Respiratory Respiratory status: No respiratory distress Chest status: Nontender Breath sounds: Normal Chest palpation: Normal - Cardiovascular Rhythm: Regular Heart sounds: Normal auscultation Murmur: No - Abdominal Inspection: Normal Distension: No distension Bowel sounds: Normal Tenderness: Nontender Organomegaly: No organomegaly - Back Back: Normal, Nontender - Extremities General upper extremity: Normal inspection, Nontender, Normal color, Normal ROM, Normal temperature General lower extremity: Normal inspection, Nontender, Normal color, Normal ROM, Normal temperature, Normal weight bearing. No: Jose's sign - Neurological Neuro grossly intact: Yes Cognition: Normal Orientation: AAOx4 Melony Coma Scale Eye Opening: Spontaneous [place] Coma Scale Verbal: Oriented [place] Coma Scale Motor: Obeys Commands Melony Coma Scale Total: 15 Speech: Normal Cranial nerves: Normal Cerebellar coordination: Normal. No: Finger-nose rhombey Motor strength normal: LUE, RUE, LLE, RLE Additional motor exam normals: Equal rn social work. No: Pronator drift Sensory: Normal - Psychological Associated symptoms: Normal affect, Normal mood - Skin Skin Temperature: Warm Skin Moisture: Dry Skin Color: Normal Course - Re-evaluation Re-evalutation: 07/09/19 21:26 Patient presents with syncope. She states nobody was home to witness it so she is unsure how long she was unconscious. She states that she recently had a head CT for syncope within the last 2 weeks. Therefore I do not feel that it would be beneficial to repeat a CAT scan at this time. She states that CAT scan was normal. She is also under the care of cardiology rheumatology and a family doctor. When she does have good outpatient follow-up. I can find no evidence of arrhythmias. No evidence of any laboratory of normalities. Currently vital signs are stable. And currently her neurological exam is stable. I do not believe she would benefit from further evaluation in the emergency department. - Vital Signs Vital signs: Temp Pulse Resp BP Pulse Ox 97.9 F 84 18 117/77 100 07/09/19 17:07 07/09/19 17:07 07/09/19 17:07 07/09/19 17:07 07/09/19 17:07 - Laboratory Result Diagrams: 07/09/19 18:21 07/09/19 18:21 Laboratory results interpreted by me: 07/09/19 07/09/19 07/09/19 18:21 18:21 18:21 Lymph % (Auto) 49.1 H Seg Neutrophils % 39.9 L Creatinine 0.47 L AST 41 H Urine Protein 30 H Urine Blood LARGE H Urine Urobilinogen 2.0 H - EKG Interpretation by Me EKG shows normal: Sinus rhythm Rate: Normal - 77 Rhythm: NSR [place]/QRS: No: Right axis deviation, Left axis deviation Discharge - Discharge Clinical Impression: Syncope Qualifiers: Syncope type: unspecified Qualified Code(s): R55 - Syncope and collapse Condition: Stable Disposition: HOME, SELF-CARE Instructions: Syncopal Episode ([facility]) Additional Instructions: Please call your family doctor first thing in the morning to arrange follow-up
[2019-07-09] MEDS ORDERED: TRAMADOL HCL 50 MG TABLET PO ONE (21:30)
[2019-07-09 22:06] VITALS: BP 122/81
== END 2019-07-09 22:29 | disposition home or self-care (01) ==
LOC: ER 17:02
DX: R55 Syncope and collapse (principal)
CPT/HCPCS: 36415; 80053; 80307; 81001; 82550; 82553; 84484; 84703; 85025; 93005; 93010

== ENCOUNTER 2019-07-29 12:06 | Emergency (ER) | payer MEDICAID ==
[2019-07-29 12:49] LABS: ABSOLUTE BASOPHILS # (AUTO) 0.1 10^3/uL (0.0-0.2); ABSOLUTE EOSINOPHILS # (AUTO) 0.4 10^3/uL (0.0-0.6); ABSOLUTE LYMPHOCYTES (AUTO) 2.8 10^3/uL (0.5-4.7); ABSOLUTE MONOCYTES (AUTO) 0.5 10^3/uL (0.1-1.4); BASOPHILS % (AUTO) 0.8 % (0-2); EOSINOPHILS % (AUTO) 5.6 % (0-6); HEMATOCRIT 38.3 % (36.0-47.0); LYMPHOCYTES % (AUTO) 41.6 % (13-45); MEAN CORPUSCULAR HEMOGLOBIN 30.2 pg (27.0-33.4); MEAN CORPUSCULAR HGB CONC 33.9 g/dL (32.0-36.0); MEAN CORPUSCULAR VOLUME 89 fl (80-97); MONOCYTES % (AUTO) 7.6 % (3-13); PLATELET COUNT 326 10^3/uL (150-450); RED CELL DISTRIBUTION WIDTH 13.4 % (11.5-14.0); SEGMENTED NEUTROPHILS % (AUTO) 44.4 % (42-78); TOTAL CELLS COUNTED % (AUTO) 100 %; WHITE BLOOD COUNT 6.7 10^3/uL (4.0-10.5)
[2019-07-29 12:56] LABS: APPEARANCE,URINE SLIGHTLY-CLOUDY; BILIRUBIN,URINE NEGATIVE (NEGATIVE); COLOR,URINE YELLOW; GLUCOSE, URINE NEGATIVE (NEGATIVE); KETONES,URINE NEGATIVE (NEGATIVE); LEUKOCYTE ESTERASE,URINE NEGATIVE (NEGATIVE); NITRITE,URINE NEGATIVE (NEGATIVE); PROTEIN,URINE NEGATIVE (NEGATIVE); URINE SPECIFIC GRAVITY 1.005; UROBILINOGEN,URINE NEGATIVE mg/dL (<2.0)
[2019-07-29 13:18] LABS: ALBUMIN 4.3 g/dL (3.5-5.0); ALKALINE PHOSPHATASE 80 U/L (38-126); ANION GAP 10 (5-19); ASPARTATE AMINO TRANSFERASE 30 U/L (14-36); BILIRUBIN,DIRECT 0.1 mg/dL (0.0-0.4); BILIRUBIN,TOTAL 0.4 mg/dL (0.2-1.3); BLOOD UREA NITROGEN 4 mg/dL (7-20); CALCIUM 9.9 mg/dL (8.4-10.2); CARBON DIOXIDE 28 mmol/L (22-30); CHLORIDE 104 mmol/L (98-107); CREATINE KINASE 40 U/L (30-135); GLUCOSE 84 mg/dL (75-110); POTASSIUM 4.1 mmol/L (3.6-5.0); TOTAL PROTEIN 7.4 g/dL (6.3-8.2)
[2019-07-29 13:27] LABS: CREATINE KINASE MB < 0.22 ng/mL (<4.55); TROPONIN I < 0.012 ng/mL
[2019-07-29] MEDS: NORMAL SALINE 1000 ML 1,000 ML IV PRN ×2 (13:44→13:45)
--- NOTE | 2019-07-29 13:48 | ER Document Report ---
ED General - General Chief Complaint: Syncope Stated Complaint: WEAKNESS Time Seen by Provider: 07/29/19 13:25 Primary Care Provider: KEVAN ALEJANDRE FNP-C [Primary Care Provider] - Follow up as needed TRAVEL OUTSIDE OF THE [place] IN LAST 30 DAYS: No - HPI Notes: Patient is a 29-year-old female who presents the emergency department for evaluation of 2 episodes of syncope in the last 24 hours. She has a recent diagnosis of pots. She was just started on midodrine a few weeks ago. She states that last night she experienced a syncopal episode while seated. Her states she was unresponsive for about a half an hour. She woke normally, was not postictal. Today she was at a doctor's office when she had a second syncopal episode. The patient states that on occasion she has joint pain before these episodes, sometimes her hands and feet "tingle." She denies any si gnificant trauma with these episodes. She follows with cardiology in [facility]. She is taking her medications as prescribed. - Related Data Allergies/Adverse Reactions: Penicillins Allergy (Verified 04/27/19 23:35) Rash hydrocodone Adverse Reaction (Verified 04/27/19 23:35) Nausea, vomiting oxycodone Adverse Reaction (Verified 04/27/19 23:35) Nausea, vomiting Surgical Glue Adverse Reaction (Uncoded 04/27/19 23:35) Rash Home Medications: Florinef, Midrin, Synthroid Past Medical History - Social History Smoking Status: Never Smoker Family History: Reviewed & Not Pertinent, Other - Unknown Patient has suicidal ideation: No Patient has homicidal ideation: No - Past Medical History Cardiac Medical History: Reports: Other - POTS Denies: Hx Coronary Artery Disease, Hx Heart Attack, Hx Hypertension Pulmonary Medical History: Denies: Hx Asthma, Hx Bronchitis, Hx COPD, Hx Pneumonia Neurological Medical History: Denies: Hx Cerebrovascular Accident, Hx Seizures Endocrine Medical History: Reports: Hx Graves' Disease Renal/ Medical History: Denies: Hx Peritoneal Dialysis Musculoskeletal Medical History: Denies Hx Arthritis Psychiatric Medical History: Reports: Hx Depression, Hx Post Traumatic Stress Disorder Past Surgical History: Reports: Hx Abdominal Surgery - gastric bypass, Hx Appendectomy, Hx Tonsillectomy - Immunizations Hx Diphtheria, Pertussis, Tetanus Vaccination: Yes Review of Systems - Review of Systems Constitutional: No symptoms reported EENT: No symptoms reported Cardiovascular: See HPI Respiratory: No symptoms reported Gastrointestinal: No symptoms reported Genitourinary: No symptoms reported Musculoskeletal: See HPI Skin: No symptoms reported Neurological/Psychological: No symptoms reported Physical Exam - Vital signs Vitals: Temp Pulse Resp BP Pulse Ox 98.0 F 63 14 111/63 100 07/29/19 12:48 07/29/19 12:48 07/29/19 12:48 07/29/19 12:48 07/29/19 12:48 - Notes Notes: Vital signs reviewed, please refer to chart. Head is normocephalic, atraumatic. Pupils equal round, reactive to light. Neck is supple without meningismus. Heart is regular rate and rhythm. Lungs are clear to auscultation bilaterally. Abdomen is soft, nontender, normoactive bowel sounds throughout. Extremities without cyanosis, clubbing. Posterior calves are nontender. Peripheral pulses are equal. Skin is warm and dry. Patient is awake, alert, oriented x3. Cranial nerves II - XII are grossly intact without focal neurological deficits. Strength is plus 5 out of 5 bilateral upper and lower extremities. Sensation is intact. Reflexes symmetrical. Intact [id number], rapid alternating movements, [id number]. Course - Re-evaluation Re-evalutation: 07/29/19 13:45 Patient presents emergency department for evaluation of syncope x2. She has a diagnosis of pots. I did review this patient's medical records. She was admitted to the hospital back in April. She had MRI an MRI of the neck. She had extensive cardiology consultation, echocardiogram, CT angiogram. I do believe this is all secondary to her pots. She has another follow-up appointment with cardiology in 2 weeks. We will go ahead and send her home with a small amount of Ultram and she states this helps her with her joint pain. She is given IV fluids. She feels stable here. She is to return to the ED with worsening. - Vital Signs Vital signs: Temp Pulse Resp BP Pulse Ox 98.0 F 67 26 H 112/76 100 07/29/19 12:48 07/29/19 13:00 07/29/19 13:02 07/29/19 13:02 07/29/19 13:02 - Laboratory Result Diagrams: 07/29/19 12:20 10/22/19 12:20 Laboratory results interpreted by me: 07/29/19 07/29/19 12:20 12:20 BUN 4 L Urine Blood LARGE H - EKG Interpretation by Me Additional EKG results interpreted by me: 07/29/19 13:45 Sinus arrhythmia, rate of 72 bpm. Normal axis. Nonspecific ST changes, but no acute changes concerning for ischemia or infarction. Discharge - Discharge Clinical Impression: Polyarthralgia Syncope Qualifiers: Encounter type: initial encounter Condition: Stable Disposition: HOME, SELF-CARE Instructions: Syncopal Episode ([facility]) Additional Instructions: Continue your home medications as previously prescribed. Follow-up with primary care as well as cardiology in 1 to 2 weeks. Return to the emergency department with worsening or new concerning symptoms of any sort. Referrals: KEVAN ALEJANDRE FNP-C [Primary Care Provider] - Follow up as needed
[2019-07-29 15:01] VITALS: BP 109/60
--- NOTE | 2019-07-29 23:49 | EKG REPORT ---
SEVERITY:- BORDERLINE ECG - SINUS ARRHYTHMIA, RATE 60-84 BORDERLINE PROLONGED QT INTERVAL : Confirmed by: Erna Gaspar MD 29-Jul-2019 23:49:03
== END 2019-07-29 15:01 | disposition home or self-care (01) ==
LOC: ER 12:06
DX: M25.50 Pain in unspecified joint (principal); R55 Syncope and collapse; R53.1 Weakness
CPT/HCPCS: 93005; 36415; 82553; 82962; 82550; 85025; 80053; 81001; 84484; 93010; J7030; 96360; 99285

== ENCOUNTER 2019-08-03 04:17 | Emergency (ER) | payer MEDICAID ==
[2019-08-03] MEDS ORDERED: RINGERS SOLUTION,LACTATED 1,000 ML IV ONE (05:16)
[2019-08-03 06:51] LABS: VENOUS BLOOD BASE EXCESS 1.5 mmol/L; VENOUS BLOOD HCO3 25.3 mmol/L (20-32); VENOUS BLOOD PCO2 36.7 mmHg (35-63); VENOUS BLOOD PH 7.46 (7.30-7.42)
[2019-08-03 06:55] LABS: ABSOLUTE BASOPHILS # (AUTO) 0.1 10^3/uL (0.0-0.2); ABSOLUTE EOSINOPHILS # (AUTO) 0.2 10^3/uL (0.0-0.6); ABSOLUTE MONOCYTES (AUTO) 0.7 10^3/uL (0.1-1.4); ABSOLUTE NEUT (AUTO) 3.7 10^3/uL (1.7-8.2); BASOPHILS % (AUTO) 0.8 % (0-2); EOSINOPHILS % (AUTO) 3.3 % (0-6); HEMATOCRIT 40.7 % (36.0-47.0); HEMOGLOBIN 13.8 g/dL (12.0-15.5); LYMPHOCYTES % (AUTO) 30.2 % (13-45); MEAN CORPUSCULAR HEMOGLOBIN 29.9 pg (27.0-33.4); MEAN CORPUSCULAR HGB CONC 33.9 g/dL (32.0-36.0); MEAN CORPUSCULAR VOLUME 88 fl (80-97); MONOCYTES % (AUTO) 10.3 % (3-13); PLATELET COUNT 315 10^3/uL (150-450); RED CELL DISTRIBUTION WIDTH 13.6 % (11.5-14.0); SEGMENTED NEUTROPHILS % (AUTO) 55.4 % (42-78); TOTAL CELLS COUNTED % (AUTO) 100 %; WHITE BLOOD COUNT 6.7 10^3/uL (4.0-10.5)
[2019-08-03 07:06] LABS: INTERNATIONAL RATION (INR) 1.04; PROTHROMBIN TIME 13.6 SEC (11.4-15.4)
[2019-08-03 07:15] LABS: ALBUMIN 4.4 g/dL (3.5-5.0); ALKALINE PHOSPHATASE 98 U/L (38-126); ANION GAP 12 (5-19); ASPARTATE AMINO TRANSFERASE 44 U/L (14-36); BILIRUBIN,DIRECT 0.1 mg/dL (0.0-0.4); BILIRUBIN,TOTAL 0.4 mg/dL (0.2-1.3); BLOOD UREA NITROGEN 7 mg/dL (7-20); CARBON DIOXIDE 27 mmol/L (22-30); CHLORIDE 101 mmol/L (98-107); GLUCOSE 81 mg/dL (75-110); POTASSIUM 3.9 mmol/L (3.6-5.0); TOTAL PROTEIN 7.7 g/dL (6.3-8.2)
--- NOTE | 2019-08-03 08:33 | RADIOLOGY REPORT (SQ) ---
EXAM DESCRIPTION: CHEST SINGLE VIEW COMPLETED DATE/TIME: 08/03/2019 5:39 am REASON FOR STUDY: Fever and cough COMPARISON: 01/12/2019 EXAM PARAMETERS: NUMBER OF VIEWS: One view. TECHNIQUE: Single frontal radiographic view of the chest acquired. RADIATION DOSE: NA LIMITATIONS: None. FINDINGS: LUNGS AND PLEURA: Parenchymal opacity at the right lung base. Left lung is clear. MEDIASTINUM AND HILAR STRUCTURES: No masses. Contour normal. HEART AND VASCULAR STRUCTURES: Heart normal in size. Normal vasculature. BONES: No acute findings. HARDWARE: None in the chest. OTHER: No other significant finding. IMPRESSION: Right basilar pneumonia. TECHNICAL DOCUMENTATION: JOB ID: [id number] [employer]- All Rights Reserved Reading location - IP/workstation name: [email or web address]
[2019-08-03] MEDS ORDERED: KETOROLAC TROMETHAMINE INJ/PF 30 MG/1 ML SDV IV ONE (08:35)
--- NOTE | 2019-08-03 08:42 | ER Document Report ---
ED General - General Chief Complaint: Shortness Of Breath Stated Complaint: TROUBLE BREATHING Time Seen by Provider: 08/03/19 08:08 Primary Care Provider: KEVAN ALEJANDRE FNP-C [Primary Care Provider] - Follow up as needed TRAVEL OUTSIDE OF THE [place] IN LAST 30 DAYS: No - HPI Notes: Patient is a 29-year-old female with a history of POTS who presents complaining of feeling short of breath with a constant semi-productive cough over the past couple days. Patient states that she has been able to eat and drink without difficulty. She is urinating normally and having normal bowel movements. Patient states that she notices soreness only with a cough around her sides bilaterally. 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 No other concerns or complaints at this time. Denies any headache, fever, neck pain, sore throat, palpitations, syncope, wheeze, abdominal pain, nausea/vomiting/diarrhea, urinary retention, dysuria, hematuria, or rash. - Related Data Allergies/Adverse Reactions: Penicillins Allergy (Verified 04/27/19 23:35) Rash hydrocodone Adverse Reaction (Verified 04/27/19 23:35) Nausea, vomiting oxycodone Adverse Reaction (Verified 04/27/19 23:35) Nausea, vomiting Surgical Glue Adverse Reaction (Uncoded 04/27/19 23:35) Rash Home Medications: levothyroxine, florinef, Past Medical History - Social History Smoking Status: Never Smoker Family History: Reviewed & Not Pertinent, Other - Unknown Patient has suicidal ideation: No Patient has homicidal ideation: No - Past Medical History Cardiac Medical History: Denies: Hx Coronary Artery Disease, Hx Heart Attack, Hx Hypertension Pulmonary Medical History: Denies: Hx Asthma, Hx Bronchitis, Hx COPD, Hx Pneumonia Neurological Medical History: Denies: Hx Cerebrovascular Accident, Hx Seizures Endocrine Medical History: Reports: Hx Graves' Disease Renal/ Medical History: Denies: Hx Peritoneal Dialysis Musculoskeletal Medical History: Denies Hx Arthritis Psychiatric Medical History: Reports: Hx Depression, Hx Post Traumatic Stress Disorder Past Surgical History: Reports: Hx Abdominal Surgery - gastric bypass, Hx Appendectomy, Hx Tonsillectomy - Immunizations Hx Diphtheria, Pertussis, Tetanus Vaccination: Yes Review of Systems - Review of Systems -: Yes All other systems reviewed and negative Physical Exam - Vital signs Vitals: Temp Pulse Resp BP Pulse Ox 98.4 F 115 H 30 H 114/70 98 08/03/19 04:22 08/03/19 04:22 08/03/19 04:22 08/03/19 04:22 08/03/19 04:22 - Notes Notes: PHYSICAL EXAMINATION: GENERAL: Well-appearing, well-nourished and in no acute distress. HEAD: Atraumatic, normocephalic. EYES: Pupils equal round and reactive to light, extraocular movements intact, sclera anicteric, conjunctiva are normal. ENT: Nares patent and without discharge. oropharynx clear without exudates. No tonsilar hypertrophy or erythema. Moist mucous membranes. NECK: Normal range of motion, supple without lymphadenopathy LUNGS: very mild crackle noted rt lower lung. No wheezing or distress. no retractions. HEART: Regular rate and rhythm without murmurs, rubs, gallops. ABDOMEN: Soft, nontender, nondistended abdomen. No guarding, no rebound. Normal bowel sounds present. No CVA tenderness bilaterally. Musculoskeletal: FROM to passive/active. Strength 5+/5. Jose neg. No asymmetry to LE's. Extremities: No cyanosis, clubbing, or edema b/l. Peripheral pulses 2+. Capillary refill less than 3 seconds. NEUROLOGICAL: Normal speech, normal gait. PSYCH: Normal mood, normal affect. SKIN: Warm, Dry, normal turgor, no rashes or lesions noted. Course - Re-evaluation Re-evalutation: 08/03/19 08:42 Patient is an afebrile, well-hydrated, 29-year-old female who presents with a right basilar pneumonia. Vitals are acceptable without significant tachycardia, tachypnea, or hypoxia. PE is otherwise unremarkable. Patient is nontoxic- appearing and is tolerating p.o. without difficulty. Labs are unremarkable. See x-ray result. No further work-up warranted at this time. Low suspicion for any ACS, PE, pneumothorax, pericarditis, dissection, respiratory compromise, severe dehydration, sepsis, meningitis, or other systemic emergent condition at this time. Patient is aware that her condition can change from initial presen tation and she needs to monitor symptoms closely and seek medical attention for any acute changes. Recommend conservative measures for symptoms. Recheck with your PCM in 2-3 days. Return to the ED with any worsening/concerning symptoms otherwise as reviewed in discharge. Patient is in agreement. - Vital Signs Vital signs: Temp Pulse Resp BP Pulse Ox 98.8 F 115 H 15 100/62 98 08/03/19 08:00 08/03/19 04:22 08/03/19 08:00 08/03/19 06:06 08/03/19 08:00 - Laboratory Result Diagrams: 08/03/19 06:34 08/03/19 06:34 Laboratory results interpreted by me: 08/03/19 08/03/19 06:34 06:34 VBG pH 7.46 H AST 44 H Discharge - Discharge Clinical Impression: Right lower lobe pneumonia Qualifiers: Pneumonia type: due to unspecified organism Qualified Code(s): J18.1 - Lobar pneumonia, unspecified organism Condition: Stable Disposition: HOME, SELF-CARE Instructions: Pneumonia ([facility]) Additional Instructions: Maintain adequate fluid intake tylenol/ibuprofen as needed alternating every 3 hours for fever/body ache over the counter cold medication as needed for symptoms Humidified air may help Wash your hands regularly Wear a mask when coughing F/u: with your PCM in 2-3 days for a recheck Return to the ED with any fever, altered mental status/behavior, chest pain, palpitations, syncope, headache, neck pain/stiffness, shortness of breath, chest pains, wheezing, drooling, trouble swallowing/breathing, abdominal pain, n/v/d, rash, or worsening/concerning symptoms otherwise. Prescriptions: Benzonatate [Tessalon Perle 100 mg Capsule] 100 mg PO Q8HP PRN #15 cap PRN Reason: Azithromycin [Zithromax 250 mg Tablet] 250 mg PO ASDIR PRN #6 tablet PRN Reason: Referrals: KEVAN ALEJANDRE FNP-C [Primary Care Provider] - 08/05/19
[2019-08-03 09:05] VITALS: BP 110/72
== END 2019-08-03 09:12 | disposition home or self-care (01) ==
LOC: ER 04:17
DX: J18.1 Lobar pneumonia, unspecified organism (principal); Z88.0 Allergy status to penicillin; Z88.6 Allergy status to analgesic agent; Z98.84 Bariatric surgery status
CPT/HCPCS: 36415; 87040; 85025; 85610; 81025; 80053; 82803; 83605; 71045; J1885; J7120; 99284

== ENCOUNTER → 2019-08-15 | Outpatient (CLI) | payer MEDICARE, MEDICAID ==
--- NOTE | 2019-08-15 13:28 | RADIOLOGY REPORT (SQ) ---
EXAM DESCRIPTION: CHEST PA/LATERAL COMPLETED DATE/TIME: 08/15/2019 1:16 pm REASON FOR STUDY: WHEEZING COMPARISON: 08/03/2019 EXAM PARAMETERS: NUMBER OF VIEWS: two views TECHNIQUE: Digital Frontal and Lateral radiographic views of the chest acquired. RADIATION DOSE: NA LIMITATIONS: none FINDINGS: LUNGS AND PLEURA: No opacities, masses or pneumothorax. No pleural effusion. MEDIASTINUM AND HILAR STRUCTURES: No masses or contour abnormalities. HEART AND VASCULAR STRUCTURES: Heart normal size. No evidence for failure. BONES: No acute findings. HARDWARE: None in the chest. OTHER: No other significant finding. IMPRESSION: NO SIGNIFICANT RADIOGRAPHIC FINDING IN THE CHEST. TECHNICAL DOCUMENTATION: JOB ID: [id number] [employer]- All Rights Reserved Reading location - IP/workstation name: [email or web address]
== END ==
LOC: OD 12:59
PROVIDERS: ATTEND Nurse Practitioner Family
DX: R06.2 Wheezing (principal)
CPT/HCPCS: 71046

== ENCOUNTER 2019-08-25 05:23 | Day surgery (SDC) | payer MEDICARE, MEDICAID ==
[2019-08-19 11:33] LABS: APPEARANCE,URINE CLEAR; BILIRUBIN,URINE NEGATIVE (NEGATIVE); CALCIUM OXALATE CRYSTALS,URINE MODERATE /HPF; GLUCOSE, URINE NEGATIVE (NEGATIVE); KETONES,URINE NEGATIVE (NEGATIVE); LEUKOCYTE ESTERASE,URINE NEGATIVE (NEGATIVE); NITRITE,URINE NEGATIVE (NEGATIVE); PROTEIN,URINE 30 mg/dL (NEGATIVE); URINE SPECIFIC GRAVITY 1.026
[2019-08-19 11:36] LABS: COLOR,URINE RED
[2019-08-19 11:37] LABS: HEMATOCRIT 35.1 % (36.0-47.0); HEMOGLOBIN 12.7 g/dL (12.0-15.5); MEAN CORPUSCULAR HEMOGLOBIN 34.3 pg (27.0-33.4); MEAN CORPUSCULAR HGB CONC 36.3 g/dL (32.0-36.0); PLATELET COUNT 358 10^3/uL (150-450); RED BLOOD COUNT 3.71 10^6/uL (3.72-5.28); RED CELL DISTRIBUTION WIDTH 13.3 % (11.5-14.0); WHITE BLOOD COUNT 9.3 10^3/uL (4.0-10.5)
[2019-08-19 11:39] LABS: MEAN CORPUSCULAR VOLUME 95 fl (80-97)
[2019-08-19 12:03] LABS: ALBUMIN 4.6 g/dL (3.5-5.0); ALKALINE PHOSPHATASE 86 U/L (38-126); ANION GAP 14 (5-19); ASPARTATE AMINO TRANSFERASE 35 U/L (14-36); BILIRUBIN,DIRECT 0.2 mg/dL (0.0-0.4); BILIRUBIN,TOTAL 0.5 mg/dL (0.2-1.3); BLOOD UREA NITROGEN 12 mg/dL (7-20); CALCIUM 9.9 mg/dL (8.4-10.2); CARBON DIOXIDE 25 mmol/L (22-30); CHLORIDE 103 mmol/L (98-107); GLUCOSE 89 mg/dL (75-110); TOTAL PROTEIN 7.8 g/dL (6.3-8.2)
--- NOTE | 2019-08-19 16:17 | EKG REPORT ---
SEVERITY:- BORDERLINE ECG - SINUS RHYTHM BORDERLINE T ABNORMALITIES, ANTERIOR LEADS : Confirmed by: Erna Gaspar MD 19-Aug-2019 16:16:40
[~2019-08-25 05:23] MED LIST changes: +CEFAZOLIN SODIUM 2 GM in DEXTROSE 5%-WATER 100 ML IV PRN; -LIDOCAINE 0.5% INJ-PF (5 MG/ML) 50 ML SDV SUBCUT PRN
[2019-08-25] MEDS ORDERED: MIDAZOLAM 2 MG/2 ML INJ ONE (06:54)
[2019-08-25] MEDS ORDERED: PROPOFOL INJ 200 MG/20 ML VIAL IV ONE (06:54)
[2019-08-25] MEDS ORDERED: FENTANYL CITRATE INJ/PF 250 MCG/5 ML AMPULE ONE (06:54)
[2019-08-25] MEDS ORDERED: HYDROMORPHONE HCL INJ/PF 2 MG/ML AMPULE ONE (06:54)
[2019-08-25] MEDS ORDERED: MORPHINE SULFATE 10 MG/ML INJ IV PRN (08:04)
[2019-08-25] MEDS ORDERED: FENTANYL CITRATE INJ/PF 100 MCG/2 ML AMPUL IV PRN ×3 (08:04)
[2019-08-25] MEDS ORDERED: PROMETHAZINE HCL INJ 25 MG/1 ML VIAL IV PRN (08:04)
[2019-08-25] MEDS ORDERED: MEPERIDINE HCL/PF INJ 25 MG/1 ML DISP.SYRIN IV PRN (08:04)
[2019-08-25] MEDS ORDERED: DIPHENHYDRAMINE HCL 50 MG/ML VIAL IV PRN (08:04)
[2019-08-25] MEDS ORDERED: OXYCODONE-ACETAMINOPHEN 5-325 MG TABLET PO PRN (09:56)
[2019-08-25] MEDS ORDERED: SIMETHICONE 80 MG TAB.CHEW PO PRN (09:56)
[2019-08-25] MEDS ORDERED: RINGERS SOLUTION,LACTATED 1,000 ML IV PRN (09:56)
[2019-08-25] MEDS ORDERED: ACETAMINOPHEN 1,000 MG/100 ML RTUPB IV PRN (09:56)
[2019-08-25] MEDS ORDERED: ACETAMINOPHEN 325 MG TABLET PO PRN (09:56)
--- NOTE | 2019-08-25 10:15 | Operative Report ---
Operative Report DATE OF SURGERY: 08/25/19 PREOPERATIVE DIAGNOSIS: Chronic pelvic pain dysmenorrhea menorrhagia POSTOPERATIVE DIAGNOSIS: Same OPERATION: Robotic hysterectomy with removal of both fallopian tubes as well as the left ovary SURGEON: REINA NOVA ANESTHESIA: GA TISSUE REMOVED OR ALTERED: Uterus left ovary fallopian tubes COMPLICATIONS: None ESTIMATED BLOOD LOSS: 50 cc INTRAOPERATIVE FINDINGS: Mild pelvic adhesions PROCEDURE: Patient was taken the OR and placed in supine position. Anesthesia was induced. She is placed in dorsolithotomy position using Rusty stirrups. Her vagina perineum and abdomen were prepared and draped in a sterile fashion. Her bladder was drained with a Taveras catheter. A [employer] uterine manipulator was placed into the cervix. The balloon was inflated. An incision was made at the umbilicus. The natural umbilical defect was identified and dilated allowing a blunt port to be placed. The abdomen was insufflated with CO2 gas. View of the pelvis was good. The lateral ports were placed under laparoscopic visualization as well as the insufflation port in the right lower quadrant. There were some left-sided colon adhesions to the pelvic sidewall which were taken down to improve exposure of the left ovary and tube. Next the tube and ovary were elevated and the and the left infundibulopelvic pedicle was cauterized with bipolar and cut with monopolar rodri. The ureter was well away from the operative site. The broad ligament was then cauterized with bipolar and cut with monopolar rodri directly next to the uterus as well as the round ligament on the left side. The anterior leaf of the broad ligament was incised during this process creating a bladder flap. Staying directly next to the uterus the broad ligament was cauterized with bipolar and cut with monopolar rodri. Next on the right side the right fallopian tube was removed by cauterizing the meso salpinx and incising with monopolar rodri. The right ovary was left in place. Directly next to the uterus the broad ligament as well as the round ligament were cauterized with bipolar and cut with monopolar rodri. Just as on the left side the broad ligament was cauterized with bipolar cut with monopolar rodri staying directly next to the uterus. The anterior leaf the broad ligament was incised creating a bladder flap as well. The bladder peritoneum was taken off the cervix with sharp and blunt dissection. Upon reaching the uterine arteries on the right these were cauterized with bipolar and cut with monopolar rodri bilaterally. The cardinal ligaments were also cauterized with bipolar and cut with monopolar rodri bilaterally. This was done staying directly next to the cervix. Reaching the vaginal angle with a circumferential incision was made around the V care cup. The uterus fallopian tubes and left ovary were removed through the vagina. The vaginal cuff was then closed with a running V lock suture starting on the right and moving left to the left. At the right ankle the suture incorporated anterior vaginal mucosa lateral vaginal sidewall and posterior vaginal mucosa. The suture was looped and pulled taut. The cuff was then closed incorporating anterior vaginal coasted to posterior vaginal mucosa until the left angle was reached. The left angle included anterior vaginal mucosa lateral vaginal sidewall and posterior vaginal mucosa. Several sutures were taken back medially at the vaginal cuff and the stitch was cut in the midline of the vaginal cuff. The pelvis was irrigated and suctioned free of fluid. All pedicle sites were inspected for bleeding and were found to be hemostatic. There was no evidence of injury to the bladder. The ureters were normal size and peristalsing bilaterally. At this point the robot was undocked from the patient. Under laparoscopic visualization the ports were removed and the gas was allowed to escape from the abdomen. The fascia at the umbilicus was closed with a 2-0 Vicryl stitch and the skin at all 4 sites closed with 4-0 undyed Vicryl stitch. Patient was placed back in supine position and brought out of anesthesia. She was taken to recovery room.
[2019-08-25] MEDS ORDERED: ACETAMINOPHEN 1,000 MG/100 ML RTUPB IV ONE (10:32)
[2019-08-25] MEDS: OXYCODONE-ACETAMINOPHEN 5-325 MG TABLET PO PRN ×3 (11:06→22:11)
[2019-08-25] MEDS: DOCUSATE SODIUM 100 MG CAPSULE PO SCH ×2 (11:06→17:51)
[2019-08-25] MEDS: PROMETHAZINE HCL INJ 25 MG/1 ML VIAL IV PRN (11:12)
[2019-08-25] MEDS ORDERED: IBUPROFEN 800 MG TABLET PO PRN (12:00)
[2019-08-25] MEDS: HYDROMORPHONE HCL INJ/PF 2 MG/ML AMPULE IV PRN (12:26)
[2019-08-25] MEDS: KETOROLAC TROMETHAMINE INJ/PF 30 MG/1 ML SDV IV SCH ×2 (13:27→21:06)
[2019-08-25] MEDS ORDERED: INFLUENZA QUAD (6MOS+) 2019-20 VAC 0.5 ML SYR IM ONE (13:29)
[2019-08-25] MEDS ORDERED: DEXAMETHASONE SOD PHOSPHATE INJ 4 MG/1 ML VIAL ONE (15:08)
[2019-08-25] MEDS ORDERED: ONDANSETRON HCL INJ/PF 4 MG/2 ML SDV ONE (15:08)
[2019-08-25] MEDS ORDERED: NEOSTIGMINE METHYLSULFATE 10 MG/10 ML VIAL ONE (15:08)
[2019-08-25] MEDS ORDERED: GLYCOPYRROLATE 1 MG/5 ML VIAL ONE (15:08)
[2019-08-25] MEDS ORDERED: ROCURONIUM BROMIDE INJ 50 MG/5 ML VIAL IV ONE (15:08)
[2019-08-25 15:23] LABS: HEMATOCRIT 38.4 % (36.0-47.0); HEMOGLOBIN 12.9 g/dL (12.0-15.5); MEAN CORPUSCULAR HEMOGLOBIN 30.1 pg (27.0-33.4); MEAN CORPUSCULAR HGB CONC 33.6 g/dL (32.0-36.0); PLATELET COUNT 346 10^3/uL (150-450); RED BLOOD COUNT 4.29 10^6/uL (3.72-5.28); RED CELL DISTRIBUTION WIDTH 13.8 % (11.5-14.0); WHITE BLOOD COUNT 8.3 10^3/uL (4.0-10.5)
[2019-08-25 15:33] LABS: MEAN CORPUSCULAR VOLUME 90 fl (80-97)
[2019-08-25 15:42] LABS: ALBUMIN 4.1 g/dL (3.5-5.0); ALKALINE PHOSPHATASE 82 U/L (38-126); ANION GAP 9 (5-19); ASPARTATE AMINO TRANSFERASE 31 U/L (14-36); BILIRUBIN,DIRECT 0.1 mg/dL (0.0-0.4); BILIRUBIN,TOTAL 0.4 mg/dL (0.2-1.3); BLOOD UREA NITROGEN 5 mg/dL (7-20); CALCIUM 9.8 mg/dL (8.4-10.2); CARBON DIOXIDE 27 mmol/L (22-30); CHLORIDE 100 mmol/L (98-107); GLUCOSE 190 mg/dL (75-110); POTASSIUM 4.9 mmol/L (3.6-5.0); TOTAL PROTEIN 7.2 g/dL (6.3-8.2)
[2019-08-26] MEDS: HYDROMORPHONE HCL INJ/PF 2 MG/ML AMPULE IV PRN (00:19)
[2019-08-26] MEDS: PROMETHAZINE HCL INJ 25 MG/1 ML VIAL IV PRN (01:07)
[2019-08-26] MEDS: KETOROLAC TROMETHAMINE INJ/PF 30 MG/1 ML SDV IV SCH (05:46)
[2019-08-26 06:17] LABS: HEMATOCRIT 32.5 % (36.0-47.0); MEAN CORPUSCULAR HEMOGLOBIN 30.3 pg (27.0-33.4); MEAN CORPUSCULAR HGB CONC 33.9 g/dL (32.0-36.0); MEAN CORPUSCULAR VOLUME 89 fl (80-97); PLATELET COUNT 315 10^3/uL (150-450); RED BLOOD COUNT 3.64 10^6/uL (3.72-5.28); RED CELL DISTRIBUTION WIDTH 13.6 % (11.5-14.0); WHITE BLOOD COUNT 12.7 10^3/uL (4.0-10.5)
[2019-08-26] MEDS: OXYCODONE-ACETAMINOPHEN 5-325 MG TABLET PO PRN (07:58)
[2019-08-26 08:13] VITALS: BP 106/63
--- NOTE | 2019-08-26 08:37 | PDOC DISCHARGE SUMMARY ---
Impression - Admit/DC Date/PCP Admission Date/Primary Care Provider: DANY PRADO Discharge Date: 08/26/19 - Discharge Diagnosis (1) Pelvic pain Is this a current diagnosis for this admission?: Yes (2) Right sided abdominal pain Is this a current diagnosis for this admission?: Yes - Assessment Summary: The patient requests hysterectomy and removal of the left ovary for heavy menses, dysmenorrhea and pelvic pain that has not been helped with conservative measures. A Davinci hysterectomy LSO was done on 25 August. Please see the operative note. She did well overnight and is ready to go home to rest. Discharge meds will include percocet for pain control. Followup in one week. No driving for 2wks. No heavy lifting. Pelvic rest for 6 to 8 weeks. - Additional Information Resuscitation Status: Full Code Discharge Diet: Regular Discharge Activity: Balance Activity w/Rest, No Driving, No Lifting/Push/Pulling, Pelvic Rest Referrals: KEVAN ALEJANDRE FNP-C [Primary Care Provider] - REINA NOVA MD [ACTIVE STAFF] - 08/29/19 1:30 pm (PLEASE CALL THE OFFICE FOR QUESTIONS AND CONCERNS) Home Medications: Levothyroxine Sodium [Synthroid] 200 mcg PO Q6AM 04/28/19 Multivit-Min/Iron/Folic Acid/K [Bariatric Mv-Iron 45 mg Cap] 1 each PO DAILY 04/28/19 Meclizine HCl [Antivert 12.5 mg Tablet] 12.5 mg PO Q6H PRN #20 tablet 05/02/19 Albuterol Sulfate [Albuterol Sulfate Hfa] 2 puff PO BID PRN 08/19/19 Fludrocortisone Acetate [Florinef 0.1 mg Tablet] 0.2 mg PO BID 08/19/19 History of Present Illiness History of Present Illness: CHITO GAMINO is a 29 year old female Physical Exam - Physical Exam Vital Signs: Temp Pulse Resp BP Pulse Ox 98.8 F 73 20 106/63 100 08/26/19 07:00 08/26/19 07:00 08/26/19 07:00 08/26/19 07:00 08/26/19 07:00 Intake & Output 08/25/19 08/26/19 08/27/19 06:59 06:59 06:59 Intake Total 0 4840 1000 Output Total 4050 Balance 0 790 1000 Weight 92.08 kg 92.08 kg Results Laboratory Results: WBC 12.7 10^3/uL (4.0-10.5) H 08/26/19 05:51 RBC 3.64 10^6/uL (3.72-5.28) L 08/26/19 05:51 Hgb 11.0 g/dL (12.0-15.5) L 08/26/19 05:51 Hct 32.5 % (36.0-47.0) L 08/26/19 05:51 MCV 89 fl (80-97) 08/26/19 05:51 MCH 30.3 pg (27.0-33.4) 08/26/19 05:51 MCHC 33.9 g/dL (32.0-36.0) 08/26/19 05:51 RDW 13.6 % (11.5-14.0) 08/26/19 05:51 Plt Count 315 10^3/uL (150-450) 08/26/19 05:51 Platelet Estimate Cancelled 08/19/19 09:19 Sodium 135.7 mmol/L (137-145) L 08/25/19 15:00 Potassium 4.9 mmol/L (3.6-5.0) 08/25/19 15:00 Chloride 100 mmol/L (98-107) 08/25/19 15:00 Carbon Dioxide 27 mmol/L (22-30) 08/25/19 15:00 Anion Gap 9 (5-19) 08/25/19 15:00 BUN 5 mg/dL (7-20) L 08/25/19 15:00 Creatinine 0.51 mg/dL (0.52-1.25) L 08/25/19 15:00 Est GFR ( Amer) > 60 (>60) 08/25/19 15:00 Est GFR (Non-Af Amer) Cancelled 08/19/19 09:19 Est GFR (MDRD) Non-Af > 60 (>60) 08/25/19 15:00 Glucose 190 mg/dL (75-110) H 08/25/19 15:00 Calcium 9.8 mg/dL (8.4-10.2) 08/25/19 15:00 Total Bilirubin 0.4 mg/dL (0.2-1.3) 08/25/19 15:00 Direct Bilirubin 0.1 mg/dL (0.0-0.4) 08/25/19 15:00 Neonat Total Bilirubin Not Reportable 08/25/19 15:00 Neonat Direct Bilirubin Not Reportable 08/25/19 15:00 Neonat Indirect Bili Not Reportable 08/25/19 15:00 AST 31 U/L (14-36) 08/25/19 15:00 ALT 25 U/L (<35) 08/25/19 15:00 Alkaline Phosphatase 82 U/L (38-126) 08/25/19 15:00 Total Protein 7.2 g/dL (6.3-8.2) 08/25/19 15:00 Albumin 4.1 g/dL (3.5-5.0) 08/25/19 15:00 EGFR Cancelled 08/19/19 09:19 Urine Color RED 08/19/19 10:30 Urine Appearance CLEAR 08/19/19 10:30 Urine pH 6.0 (5.0-9.0) 08/19/19 10:30 Ur Specific Unity 1.026 08/19/19 10:30 Urine Protein 30 mg/dL (NEGATIVE) H 08/19/19 10:30 Urine Glucose (UA) NEGATIVE mg/dL (NEGATIVE) 08/19/19 10:30 Urine Ketones NEGATIVE mg/dL (NEGATIVE) 08/19/19 10:30 Urine Blood LARGE (NEGATIVE) H 08/19/19 10:30 Urine Nitrite NEGATIVE (NEGATIVE) 08/19/19 10:30 Urine Bilirubin NEGATIVE (NEGATIVE) 08/19/19 10:30 Urine Urobilinogen 2.0 mg/dL (<2.0) H 08/19/19 10:30 Ur Leukocyte Esterase NEGATIVE (NEGATIVE) 08/19/19 10:30 Urine WBC (Auto) Cancelled 08/19/19 09:10 Urine RBC (Auto) >182 /HPF 08/19/19 10:30 U Hyaline Cast (Auto) Cancelled 08/19/19 09:10 Urine Bacteria (Auto) Cancelled 08/19/19 09:10 Urine Red Cell Clumps Cancelled 08/19/19 09:10 Urine WBC Clumps Cancelled 08/19/19 09:10 Squamous Epi Cells Auto 3 /HPF 08/19/19 10:30 U Non-Squamous Epis Auto Cancelled 08/19/19 09:10 Calcium Carbonate Cryst Cancelled 08/19/19 09:10 Calcium Phosphate Cryst Cancelled 08/19/19 09:10 Calcium Oxalate Cr Auto MODERATE /HPF 08/19/19 10:30 Leucine Crystals Cancelled 08/19/19 09:10 Cystine Crystals Cancelled 08/19/19 09:10 Uric Acid Cryst (Auto) Cancelled 08/19/19 09:10 Triple Phos Cryst (Auto) Cancelled 08/19/19 09:10 Tyrosine Crystals Cancelled 08/19/19 09:10 Amorphous Sediment Auto Cancelled 08/19/19 09:10 Cellular Casts Cancelled 08/19/19 09:10 Epithelial Casts (Auto) Cancelled 08/19/19 09:10 Fatty Casts Cancelled 08/19/19 09:10 Granular Casts (Auto) Cancelled 08/19/19 09:10 Waxy Casts (Auto) Cancelled 08/19/19 09:10 Broad Casts Cancelled 08/19/19 09:10 RBC Casts (Auto) Cancelled 08/19/19 09:10 WBC Casts (Auto) Cancelled 08/19/19 09:10 Urine Mucus (Auto) FEW /LPF 08/19/19 10:30 U Trichomonas (Auto) Cancelled 08/19/19 09:10 Ur Yeast w Hyphae Cancelled 08/19/19 09:10 Urine Yeast (Budding) Cancelled 08/19/19 09:10 Urine Ascorbic Acid NEGATIVE (NEGATIVE) 08/19/19 10:30 Urine HCG, Qual NEGATIVE (NEGATIVE) 08/25/19 05:35 Slides for Path Review Cancelled 08/19/19 09:19 Blood Type O POSITIVE 08/19/19 10:24 Antibody Screen NEGATIVE 08/19/19 10:24 Stroke Is this a Stroke Patient?: No Acute Heart Failure - Is this a Heart Failure Patient?: No
[2019-08-26] MEDS: DOCUSATE SODIUM 100 MG CAPSULE PO SCH (09:27)
[2019-08-26] MEDS ORDERED: IBUPROFEN 800 MG TABLET PO PRN (10:00)
== END 2019-08-26 09:55 | disposition home or self-care (01) ==
LOC: OROUT 05:23 → 2N 10:45 → OROUT 08-26 09:55
PROVIDERS: ATTEND Obstetrics & Gynecology
DX: G89.29 Other chronic pain (principal); R10.2 Pelvic and perineal pain; Z79.899 Other long term (current) drug therapy; N94.6 Dysmenorrhea, unspecified; N92.0 Excessive and frequent menstruation with regular cycle; N73.6 Female pelvic peritoneal adhesions (postinfective); N72 Inflammatory disease of cervix uteri; N83.02 Follicular cyst of left ovary; E66.9 Obesity, unspecified; Z68.34 Body mass index [BMI] 34.0-34.9, adult; E05.00 Thyrotoxicosis with diffuse goiter without thyrotoxic crisis or storm; K76.0 Fatty (change of) liver, not elsewhere classified; K74.60 Unspecified cirrhosis of liver; I47.1 Supraventricular tachycardia
CPT/HCPCS: 58571; S2900; 36415; 80053; 81001; 81025; 840; 85027; 86850; 86900; 86901; 88307; 93005; 93010; J0131; J0690; J1100; J1170; J1885; J2250; J2405; J2550; J2704; J2710; J3010; J3490; J7060; J7120

== ENCOUNTER → 2019-09-03 | Outpatient (CLI) | payer MEDICARE, MEDICAID ==
--- NOTE | 2019-09-03 13:58 | RADIOLOGY REPORT (SQ) ---
EXAM DESCRIPTION: LUMBAR SPINE COMPLETE COMPLETED DATE/TIME: 09/03/2019 1:46 pm REASON FOR STUDY: ANESTHESIA OF SKIN R20.0 ANESTHESIA OF SKIN COMPARISON: CT abdomen pelvis 01/12/2019 NUMBER OF VIEWS: Five views including obliques. TECHNIQUE: AP, lateral, oblique, and sacral radiographic images acquired of the lumbar spine. LIMITATIONS: None. FINDINGS: MINERALIZATION: Normal. SEGMENTATION: Normal. No transitional anatomy. ALIGNMENT: Normal. VERTEBRAE: Maintained height. No fracture or worrisome bone lesion. DISCS: Mild disc space loss of height at L5-S1 POSTERIOR ELEMENTS: Pedicles and facets are intact. No pars defect or posterior arch defects. Mild bilateral facet arthropathy at L5-S1. HARDWARE: None in the spine. PARASPINAL SOFT TISSUES: Surgical clips left upper quadrant post gastric bypass PELVIS: SI joints intact OTHER: No other significant finding. IMPRESSION: Mild degenerative changes at L5-S1. TECHNICAL DOCUMENTATION: JOB ID: [id number] [email or web address]- All Rights Reserved Reading location - IP/workstation name: [email or web address]
== END ==
LOC: OD 13:25
PROVIDERS: ATTEND Nurse Practitioner Family
DX: R20.0 Anesthesia of skin (principal)
CPT/HCPCS: 72110

== ENCOUNTER → 2019-09-10 | Outpatient (CLI) | payer MEDICARE, MEDICAID ==
--- NOTE | 2019-09-10 14:08 | RADIOLOGY REPORT (SQ) ---
EXAM DESCRIPTION: MRI LUMBAR SPINE WITHOUT COMPLETED DATE/TIME: 09/10/2019 7:48 am REASON FOR STUDY: LUMBAR RADICULOPATHY (M54.16) M54.16 RADICULOPATHY, LUMBAR REGION COMPARISON: Lumbar spine plain films 09/03/2019 CT abdomen pelvis 01/12/2019 TECHNIQUE: Sagittal and Axial imaging includes T1, T2, STIR and gradient echo sequences. Coronal T2/ HASTE imaging. LIMITATIONS: None. FINDINGS: VISUALIZED UPPER ABDOMEN: Limited evaluation. No acute or suspicious findings suggested. SEGMENTATION: No transitional anatomy. The lowest well-developed disc space is labeled L5-S1. ALIGNMENT: Anatomic. VERTEBRAE: Intact. BONE MARROW: Normal. No marrow replacement or reactive changes. DISC SIGNAL: Decreased T2 weighted intervertebral disc signal at L4-5 and L5-S1 POSTERIOR ELEMENTS: Generally intact. No pars defect evident. HARDWARE: None in the spine. CORD AND CONUS: Normal in size and signal intensity. Conus at the T12-L1 level. SOFT TISSUES: No aortic aneurysm seen. No bulky retroperitoneal adenopathy or mass. No paraspinal mas s or fluid. L1-L2: Mild bilateral facet hypertrophy. No central or foraminal stenosis L2-L3: Mild bilateral facet hypertrophy. No central or foraminal stenosis L3-L4: Mild bilateral facet hypertrophy. No central or foraminal stenosis L4-L5: Broad diffuse posterior disc bulging is present with a small central annular tear. Mild bilat eral facet and ligament hypertrophy. Borderline central canal narrowing. Mild bilateral inferior fo raminal narrowing without exiting L4 nerve root impingement L5-S1: Broad diffuse posterior disc bulge is present with a small central annular tear. Mild bilater al facet and ligament hypertrophy. No central canal narrowing. Mild bilateral inferior foraminal na rrowing SACRUM: Visualized upper sacrum intact. OTHER: No other significant findings. IMPRESSION: Mild degenerative changes lower lumbar spine. No high-grade central or foraminal encroa chment TECHNICAL DOCUMENTATION: JOB ID: [id number]- All Rights Reserved Reading location - IP/workstation name: [email or web address]
== END ==
LOC: RAD 06:49
PROVIDERS: ATTEND Nurse Practitioner Family
DX: M54.16 Radiculopathy, lumbar region (principal)
CPT/HCPCS: 72148

== ENCOUNTER → 2019-09-18 | Outpatient (CLI) | payer MEDICARE, MEDICAID ==
--- NOTE | 2019-09-18 14:37 | RADIOLOGY REPORT (SQ) ---
EXAM DESCRIPTION: U/S ABDOMEN LIMITED W/O DOP COMPLETED DATE/TIME: 09/18/2019 2:04 pm REASON FOR STUDY: (R10.11)RIGHT UPPER QUADRANT PAIN R10.11 RIGHT UPPER QUADRANT PAIN COMPARISON: 04/27/2019. TECHNIQUE: Dynamic and static grayscale images acquired of the abdomen and recorded on PACS. Additio nal selected color Doppler and spectral images recorded. LIMITATIONS: None. FINDINGS: PANCREAS: No masses. No peripancreatic edema or fluid collections. LIVER: Echotexture is coarse with increased echogenicity consistent with fatty infiltration. LIVER VASCULATURE: Normal directional flow of the main portal vein and hepatic veins. GALLBLADDER: Small gallstones. Normal wall thickness. No pericholecystic fluid. ULTRASOUND-DETECTED KELLY'S SIGN: Negative. INTRAHEPATIC DUCTS AND COMMON DUCT: CBD and intrahepatic ducts normal caliber. No filling defects. INFERIOR VENA CAVA: Normal flow. AORTA: No aneurysm. RIGHT KIDNEY: Normal size. Normal echogenicity. No solid or suspicious masses. No hydronephros is. No calcifications. PERITONEAL AND RIGHT PLEURAL SPACE: No ascites or effusions. OTHER: No other significant finding. IMPRESSION: 1. SMALL GALLSTONES. 2. FATTY INFILTRATION OF THE LIVER. NO OTHER SIGNIFICANT FINDINGS. TECHNICAL DOCUMENTATION: JOB ID: [id number] [employer]- All Rights Reserved Reading location - IP/workstation name: [email or web address]
== END ==
LOC: RAD 13:11
PROVIDERS: ATTEND Nurse Practitioner Family
DX: R10.11 Right upper quadrant pain (principal)
CPT/HCPCS: 76705

== ENCOUNTER 2019-09-21 20:25 | Emergency (ER) | payer MEDICARE, MEDICAID ==
[2019-09-21 23:06] LABS: ABSOLUTE BASOPHILS # (AUTO) 0.1 10^3/uL (0.0-0.2); ABSOLUTE EOSINOPHILS # (AUTO) 0.3 10^3/uL (0.0-0.6); ABSOLUTE LYMPHOCYTES (AUTO) 5.2 10^3/uL (0.5-4.7); ABSOLUTE MONOCYTES (AUTO) 0.5 10^3/uL (0.1-1.4); ABSOLUTE NEUT (AUTO) 3.9 10^3/uL (1.7-8.2); BASOPHILS % (AUTO) 0.6 % (0-2); EOSINOPHILS % (AUTO) 3.4 % (0-6); HEMATOCRIT 37.4 % (36.0-47.0); HEMOGLOBIN 12.6 g/dL (12.0-15.5); LYMPHOCYTES % (AUTO) 52.3 % (13-45); MEAN CORPUSCULAR HEMOGLOBIN 29.9 pg (27.0-33.4); MEAN CORPUSCULAR HGB CONC 33.6 g/dL (32.0-36.0); MEAN CORPUSCULAR VOLUME 89 fl (80-97); MONOCYTES % (AUTO) 4.9 % (3-13); PLATELET COUNT 343 10^3/uL (150-450); RED CELL DISTRIBUTION WIDTH 13.7 % (11.5-14.0); SEGMENTED NEUTROPHILS % (AUTO) 38.8 % (42-78); TOTAL CELLS COUNTED % (AUTO) 100 %
[2019-09-21 23:24] LABS: ALBUMIN 4.2 g/dL (3.5-5.0); ALKALINE PHOSPHATASE 77 U/L (38-126); ANION GAP 11 (5-19); ASPARTATE AMINO TRANSFERASE 26 U/L (14-36); BILIRUBIN,DIRECT 0.1 mg/dL (0.0-0.4); BILIRUBIN,TOTAL 0.4 mg/dL (0.2-1.3); BLOOD UREA NITROGEN 10 mg/dL (7-20); CALCIUM 9.5 mg/dL (8.4-10.2); CARBON DIOXIDE 28 mmol/L (22-30); CHLORIDE 100 mmol/L (98-107); GLUCOSE 91 mg/dL (75-110); TOTAL PROTEIN 7.1 g/dL (6.3-8.2)
--- NOTE | 2019-09-21 23:28 | RADIOLOGY REPORT (SQ) ---
EXAM DESCRIPTION: Ultrasound of the gallbladder. CLINICAL HISTORY: 29 years Female RUQ pain TECHNIQUE: Right upper quadrant ultrasound was performed. COMPARISON: Ultrasound abdomen 09/18/2019 FINDINGS: Pancreas: Visualized portions are unremarkable. Liver: Measures up to 14.6 cm. Increased echogenicity is nonspecific but suggestive of hepatic steatosis. Portal venous flow is hepatopedal, normal. Gallbladder: Small mobile gallstones are again noted. No pericholecystic fluid. No sonographic Capellan's sign. Common bile duct: 1.9 mm. Right kidney: 11.6 x 4.1 x 5.8. No hydronephrosis. IMPRESSION: 1. Cholelithiasis without sonographic evidence of acute cholecystitis. 2. Potential hepatic steatosis. Correlate with liver function tests.
[2019-09-21] MEDS ORDERED: ACETAMINOPHEN 325 MG TABLET PO ONE (23:34)
[2019-09-21] MEDS ORDERED: ACETAMINOPHEN 325 MG TABLET ONE (23:35)
[2019-09-21 23:56] LABS: APPEARANCE,URINE SLIGHTLY-CLOUDY; BILIRUBIN,URINE NEGATIVE (NEGATIVE); COLOR,URINE YELLOW; GLUCOSE, URINE NEGATIVE (NEGATIVE); KETONES,URINE NEGATIVE (NEGATIVE); LEUKOCYTE ESTERASE,URINE NEGATIVE (NEGATIVE); NITRITE,URINE NEGATIVE (NEGATIVE); PROTEIN,URINE 30 mg/dL (NEGATIVE); URINE SPECIFIC GRAVITY 1.029
[2019-09-22] MEDS ORDERED: KETOROLAC TROMETHAMINE 60 MG/2 ML SDV IM ONE (02:13)
--- NOTE | 2019-09-22 02:50 | ER Document Report ---
ED General - General Chief Complaint: Epigastric Pain Stated Complaint: ABDOMINAL AND BACK PAIN,NAUSEA Time Seen by Provider: 09/21/19 22:09 Primary Care Provider: KEVAN ALEJANDRE FNP-C [Primary Care Provider] - Follow up as needed Notes: 29-year-old female with known history of gallstones presents with right upper quadrant pain for the last week and a half. Patient has associated nausea. Patient denies any vomiting, fever, chills, urinary symptoms, diarrhea, constipation. Patient states she saw her PCP a few days ago and had an ultrasound which showed gallstones. Patient states she was told to take Motrin but has had no relief with this. Patient's PCP has sent in a referral for a general surgeon and patient is waiting to hear back for follow-up appointment. TRAVEL OUTSIDE OF THE [place] IN LAST 30 DAYS: No - Related Data Allergies/Adverse Reactions: hydrocodone Adverse Reaction (Verified 04/27/19 23:35) Nausea, vomiting oxycodone Adverse Reaction (Verified 04/27/19 23:35) Nausea, vomiting Surgical Glue Adverse Reaction (Uncoded 04/27/19 23:35) Rash Home Medications: none Past Medical History - Social History Smoking Status: Never Smoker Chew tobacco use (# tins/day): No Frequency of alcohol use: None Family History: Reviewed & Not Pertinent, Other - Unknown Patient has suicidal ideation: No Patient has homicidal ideation: No - Past Medical History Cardiac Medical History: Denies: Hx Coronary Artery Disease, Hx Heart Attack, Hx Hypertension Pulmonary Medical History: Denies: Hx Asthma, Hx Bronchitis, Hx COPD, Hx Pneumonia Neurological Medical History: Denies: Hx Cerebrovascular Accident, Hx Seizures Endocrine Medical History: Reports: Hx Graves' Disease Renal/ Medical History: Denies: Hx Peritoneal Dialysis Musculoskeletal Medical History: Denies Hx Arthritis Psychiatric Medical History: Reports: Hx Depression, Hx Post Traumatic Stress Disorder Past Surgical History: Reports: Hx Abdominal Surgery - gastric bypass, Hx Appendectomy, Hx Tonsillectomy - Immunizations Hx Diphtheria, Pertussis, Tetanus Vaccination: Yes Review of Systems - Review of Systems Notes: Constitutional: Negative for fever. HENT: Negative for sore throat. Eyes: Negative for visual changes. Cardiovascular: Negative for chest pain. Respiratory: Negative for shortness of breath. Gastrointestinal: Positive for abdominal pain and nausea. Negative for vomiting or diarrhea. Genitourinary: Negative for dysuria. Musculoskeletal: Negative for back pain. Skin: Negative for rash. Neurological: Negative for headaches, weakness or numbness. 10 point ROS negative except as marked above and in HPI. Physical Exam - Vital signs Vitals: Temp Pulse Resp BP Pulse Ox 97.7 F 88 16 120/66 100 09/21/19 20:42 09/21/19 20:42 09/21/19 20:42 09/21/19 20:42 09/21/19 20:42 - Notes Notes: GENERAL: Well-appearing, well-nourished and uncomfortable HEAD: Atraumatic, normocephalic. EYES: Extraocular movements intact, sclera anicteric, conjunctiva are normal. NECK: Normal range of motion, supple without lymphadenopathy or JVD. ABDOMEN: Soft, tenderness to RUQ. No guarding, no rebound. No masses appreciated. EXTREMITIES: Normal range of motion, no pitting or edema. No clubbing or cyanosis. NEUROLOGICAL: Cranial nerves II through XII grossly intact. Normal speech, norm al gait. PSYCH: Normal mood, normal affect. SKIN: Warm, Dry, normal turgor, no rashes or lesions noted. Course - Re-evaluation Re-evalutation: 09/22/19 patient appears uncomfortable. Patient is nontoxic, well-appearing. Tenderness to right upper quadrant without guarding/rebound. Patient is afebrile. No leukocytosis. Liver enzymes are not elevated. Alk phos is not elevated. Ultrasound shows gallstones without acute cholecystitis. Toradol ordered and will reassess. 09/22/19 05:10 Reassessed pt. Pt's pain has improved. Nausea improved with zofran. Strict return precautions given. Pt encouraged to follow up with general surgeon once scheduled and with PCP. Pt given prescription for toradol and zofran. All questions/concerns addressed prior to discharge. - Vital Signs Vital signs: Temp Pulse Resp BP Pulse Ox 97.4 F 74 16 98/65 L 100 09/22/19 00:54 09/22/19 00:54 09/22/19 00:54 09/22/19 00:54 09/22/19 00:54 - Laboratory Result Diagrams: 09/21/19 22:40 09/21/19 22:40 Laboratory results interpreted by me: 09/21/19 09/21/19 22:40 23:35 Lymph % (Auto) 52.3 H Absolute Lymphs (auto) 5.2 H Seg Neutrophils % 38.8 L Urine Protein 30 H Urine Urobilinogen 2.0 H Discharge - Discharge Clinical Impression: Biliary colic, Gallstones, Nausea Abdominal pain Qualifiers: Abdominal location: right upper quadrant Qualified Code(s): R10.11 - Right upper quadrant pain Condition: Stable Disposition: HOME, SELF-CARE Instructions: Gallbladder Disease ([facility]), Toradol Injection ([facility]), Antinausea Medication ([facility]) Additional Instructions: Please take medications as prescribed. Please follow-up with a general surgeon once you are scheduled and follow-up with your primary care doctor in 1 to 2 weeks. Return to ER immediately if you start having any worsening symptoms, including worsening pain, fever, vomiting not controlled by medications, diarrhea/constipation, urinary symptoms, or any other symptoms that are concerning to you. Prescriptions: Ondansetron [Zofran Odt 4 mg Tablet] 4 mg PO Q4HP PRN #30 tab.rapdis PRN Reason: Ketorolac Tromethamine [Toradol 10 mg Tablet] 10 mg PO Q8HP PRN #20 tablet PRN Reason: Referrals: KEVAN ALEJANDRE FNP-C [Primary Care Provider] - Follow up as needed
[2019-09-22] MEDS ORDERED: ONDANSETRON ODT 4 MG TAB (6 TAB/ER DISP) PO PRN (05:12)
[2019-09-22 05:28] VITALS: BP 94/47
== END 2019-09-22 05:28 | disposition home or self-care (01) ==
LOC: ER 20:25
DX: K80.50 Calculus of bile duct without cholangitis or cholecystitis without obstruction (principal); K80.80 Other cholelithiasis without obstruction; R10.11 Right upper quadrant pain; R11.0 Nausea; R10.13 Epigastric pain; M54.9 Dorsalgia, unspecified
CPT/HCPCS: 36415; 83690; 85025; 81025; 80053; 81001; 76705; A9270 ×2; J1885; 96372; 99284

== ENCOUNTER 2019-10-15 08:38 | Day surgery (SDC) | payer MEDICARE, MEDICAID ==
[~2019-10-15 08:38] MED LIST changes: -CEFAZOLIN SODIUM 2 GM in DEXTROSE 5%-WATER 100 ML IV PRN; +DEXAMETHASONE SOD PHOSPHATE INJ 4 MG/1 ML VIAL ONE; +GLYCOPYRROLATE 1 MG/5 ML VIAL ONE; -LACTATED RINGERS 1000 ML IV PRN; +NEOSTIGMINE METHYLSULFATE 10 MG/10 ML VIAL ONE; +ONDANSETRON HCL INJ/PF 4 MG/2 ML SDV ONE; +ROCURONIUM BROMIDE INJ 50 MG/5 ML VIAL IV ONE; +SUCCINYLCHOLINE CHLORIDE INJ 200 MG/10 ML VIAL ONE
[2019-10-15] MEDS ORDERED: METRONIDAZOLE 500 MG/NS RTU 500 MG/100 ML RTUPB IV ONE (10:51)
[2019-10-15] MEDS ORDERED: CEFAZOLIN INJ 1 GM VIAL ONE (10:51)
[2019-10-15] MEDS ORDERED: CEFAZOLIN 1 GM/D5W RTU 1 GM/50 ML RTUPB IV PRN (11:00)
[2019-10-15] MEDS ORDERED: METRONIDAZOLE 500 MG/NS RTU 500 MG/100 ML RTUPB IV PRN (11:00)
[2019-10-15] MEDS ORDERED: MIDAZOLAM 2 MG/2 ML INJ ONE (11:49)
[2019-10-15] MEDS ORDERED: FENTANYL CITRATE INJ/PF 250 MCG/5 ML AMPULE ONE (11:49)
[2019-10-15] MEDS ORDERED: PROPOFOL INJ 200 MG/20 ML VIAL IV ONE (11:50)
[2019-10-15] MEDS ORDERED: BUPIVACAINE INJ/PF LIPOSOME/PF 266 MG/20 ML SDV ONE (11:55)
[2019-10-15] MEDS ORDERED: MORPHINE SULFATE 10 MG/ML INJ IV PRN (12:26)
[2019-10-15] MEDS ORDERED: DIPHENHYDRAMINE HCL 50 MG/ML VIAL IV PRN (12:26)
[2019-10-15] MEDS ORDERED: FENTANYL CITRATE INJ/PF 100 MCG/2 ML AMPUL IV PRN ×3 (12:26)
[2019-10-15] MEDS ORDERED: PROMETHAZINE HCL INJ 25 MG/1 ML VIAL IV PRN ×2 (12:26)
[2019-10-15] MEDS ORDERED: MEPERIDINE HCL/PF INJ 25 MG/1 ML DISP.SYRIN IV PRN (12:26)
--- NOTE | 2019-10-15 13:04 | Operative Report ---
Nonrecallable Operative Report DATE OF SURGERY: 10/15/19 PREOPERATIVE DIAGNOSIS: Epigastric pain history of gastric bypass cholelithiasis POSTOPERATIVE DIAGNOSIS: Epigastric pain history of gastric bypass and cholelithiasis OPERATION: None 100 cc esophagogastroduodenoscopy laparoscopic cholecystectomy esophagogastroduodenoscopy and laparoscopic cholecystectomy SURGEON: CHRIS TATE ANESTHESIA: GA TISSUE REMOVED OR ALTERED: Gallbladder COMPLICATIONS: None ESTIMATED BLOOD LOSS: 25 cc INTRAOPERATIVE FINDINGS: See dictation PROCEDURE: Patient was brought to the operating room awake alert in stable condition placed in the upper table supine position induced under general anesthesia intubated after appropriate timeout and site verification the procedure commenced. Olympus gastroscope was passed into the mouth through the posterior pharynx traversed the upper esophagus to the GE junction upon reaching the GE junction we noted a fairly small approximately 45 to 50 cc gastric pouch I noted the anastomosis both the blind end of the Case limb and then the alimentary portion of the Case limb was which I was easily able to intubate I passed the scope down the entire length of the scope 120 cm but did not visualize the Case anastomosis As I with slowly withdrew the scope I examined the mucosa and it appeared to be normal and there was one surgical staple that was noted at the gastrojejunostomy but it was not associated with any ulcerations there was no ulcerations the gastrojejunostomy was widely patent the scope was then retroflexed and we examined the undersurface of the gastrojejunostomy that also appeared to be normal without ulcerations. The scope was then slowly with drawn. The abdomen was then prepped and draped for laparoscopic cholecystectomy. A vertical incision was made above the umbilicus, and a verres needle was inserted uneventfully into the peritoneal cavity. Pneumoperitoneum was established. The verres needle was removed and a 10 mm trocar was inserted and a 10 mm laparoscope was inserted. Visualization of the peritoneal cavity confirmed safe uneventful entry. Under direct visualization 3 additional 5 mm ports were established, one in the subxiphoid position and second in the subcostal position. Visualization of the hepatobiliary anatomy revealed no anatomic variations. A grasper was placed on the fundus of the gallbladder and the gallbladder is elevated over the right surface of the liver; a second grasper was used to grasp the infundibulum of the gallbladder. The neck of the gallbladder and junction with the cystic duct was dissected out. The Cystic artery was in its usual location medial and cephalad to the cystic duct. The cystic artery was surrounded with a right angle clamp, clipped twice proximally and divided with laparoscopic scissors. We now opened the triangle of Calot by dividing the peritoneal reflection on both the medial and lateral sides of the cystic duct infundibular junction. The critical view was obtained. We now milked the cystic duct of any possible stones, clipped the cystic duct approximately 2 times once distally and divided with scissors. The gallbladder was now removed from the undersurface of the liver using hook cautery dissection. Graspers were repositioned and the gallbladder was removed uneventfully from the abdominal cavity through the super umbilical port site incision. The specimen was examined, then passed off to pathology for permanent analysis. We returned to the peritoneal cavity check for bleeding, and evidence of bile leak, and there was none. We Confirmed satisfactory placement of clips on cystic duct and cystic artery were secured . At this point we felt the operation was complete. The subcutaneous tissue was then anesthetized with quarter percent Marcaine Sponge and needle counts are correct. All ports removed under direct visualization pneumoperitoneum evacuated, and 5 mm port wounds closed with 3-0 Vicryl suture, benzoin and Steri-Strips. The patient was extubated, and taken to the recovery room in stable condition.
--- NOTE | 2019-10-15 13:05 | Discharge Summary ---
Discharge Summary (SDC) - Discharge Final Diagnosis: Cholelithiasis epigastric abdominal pain status post gastric bypass Date of Surgery: 10/15/19 Discharge Date: 10/15/19 Referrals: KEVAN ALEJANDRE FNP-C [Primary Care Provider] - Discharge Diet: As Tolerated Discharge Activity: No Lifting Over 10 Pounds Report the Following to Your Physician Immediately: Shortness of Breath, Vomiting, Yellow Skin - Patient needs a follow-up with me in surgical clinic in 10 to 14 days, Unusual Bleeding
[2019-10-15] MEDS: FENTANYL CITRATE INJ/PF 100 MCG/2 ML AMPUL ONE ×2 (13:32→13:37)
[2019-10-15] MEDS ORDERED: KETOROLAC TROMETHAMINE INJ/PF 30 MG/1 ML SDV ONE (13:49)
[2019-10-15] MEDS ORDERED: ACETAMINOPHEN 1,000 MG/100 ML RTUPB IV ONE (14:19)
[2019-10-15] MEDS ORDERED: HYDROCODONE/ACETAMINOPHEN 5-325 MG TABLET ONE (14:30)
[2019-10-15 17:13] VITALS: BP 117/66
== END 2019-10-15 16:00 | disposition home or self-care (01) ==
LOC: OROUT 08:38
PROVIDERS: ATTEND Surgery
DX: K81.1 Chronic cholecystitis (principal); R10.13 Epigastric pain; Z98.84 Bariatric surgery status; K75.81 Nonalcoholic steatohepatitis (NASH); E05.00 Thyrotoxicosis with diffuse goiter without thyrotoxic crisis or storm; I95.1 Orthostatic hypotension; K74.60 Unspecified cirrhosis of liver; E03.9 Hypothyroidism, unspecified; I47.1 Supraventricular tachycardia; Z79.899 Other long term (current) drug therapy
CPT/HCPCS: 43239; 81025; 88304 ×2; 00790; 47562; J2250; J0690; J3490 ×3; J1100; J3010 ×2; J1885; J2710; J0330; J2405; J2704; J0131; C9290; A9270; 790

== ENCOUNTER 2019-10-16 18:48 | Emergency (ER) | payer MEDICARE, MEDICAID ==
[2019-10-16] MEDS ORDERED: HYDROCODONE/ACETAMINOPHEN 5-325 MG TABLET PO ONE (20:25)
[2019-10-16] MEDS ORDERED: ONDANSETRON 4 MG TAB.RAPDIS PO ONE (20:25)
--- NOTE | 2019-10-16 20:26 | ER Document Report ---
ED Medical Screen (RME) - General Chief Complaint: Post Surgical Pain Stated Complaint: INCISION OPENED POST SURGERY Time Seen by Provider: 10/16/19 20:20 Primary Care Provider: KEVAN ALEJANDRE FNP-C [Primary Care Provider] - Follow up as needed Mode of Arrival: Ambulatory Information source: Patient Notes: Patient is status post laparoscopic cholecystectomy yesterday. Patient states she developed pain and bleeding to the umbilical incision. Patient reports that she has had 5 previous surgeries through the umbilicus. Patient complains of increased pain to this area as well. Patient denies any trauma. Patient states that she called and was advised to come here by the surgeon. I have greeted and performed a rapid initial assessment of this patient. A c omprehensive ED assessment and evaluation of the patient, analysis of test results and completion of the medical decision making process will be conducted by additional ED providers. TRAVEL OUTSIDE OF THE [place] IN LAST 30 DAYS: No - Related Data Allergies/Adverse Reactions: hydrocodone Adverse Reaction (Verified 04/27/19 23:35) Nausea, vomiting oxycodone Adverse Reaction (Verified 04/27/19 23:35) Nausea, vomiting Surgical Glue Adverse Reaction (Uncoded 04/27/19 23:35) Rash Home Medications: Levothyroxine. Flourinef. Hydrocdone (post surgical meds). Promethezine (post surgical meds). Zofran (post surgical meds) Past Medical History - Social History Frequency of alcohol use: None Drug Abuse: None - Past Medical History Cardiac Medical History: Denies: Hx Coronary Artery Disease, Hx Heart Attack, Hx Hypertension Pulmonary Medical History: Reports: Hx Pneumonia - 2 MONTHS AGO Denies: Hx Asthma, Hx Bronchitis, Hx COPD Neurological Medical History: Denies: Hx Cerebrovascular Accident, Hx Seizures Endocrine Medical History: Reports: Hx Graves' Disease Renal/ Medical History: Denies: Hx Peritoneal Dialysis Musculoskeltal Medical History: Denies Hx Arthritis Psychiatric Medical History: Reports: Hx Depression, Hx Post Traumatic Stress Disorder Past Surgical History: Reports: Hx Abdominal Surgery - gastric bypass, Hx Appendectomy, Hx Tonsillectomy - Immunizations Hx Diphtheria, Pertussis, Tetanus Vaccination: Yes Physical Exam - Vital signs Vitals: Temp Pulse Resp BP Pulse Ox 98.8 F 96 18 105/67 99 10/16/19 19:00 10/16/19 19:00 10/16/19 19:00 10/16/19 19:00 10/16/19 19:00 - Abdominal Tenderness: Tender - Tenderness to umbilicus with dried bloody Steri-Strips Course - Vital Signs Vital signs: Temp Pulse Resp BP Pulse Ox 98.8 F 96 18 105/67 99 10/16/19 19:00 10/16/19 19:00 10/16/19 19:00 10/16/19 19:00 10/16/19 19:00 Doctor's Discharge - Discharge Referrals: KEVAN ALEJANDRE, JEWEL SORTER-C [Primary Care Provider] - Follow up as needed
[2019-10-16] MEDS ORDERED: OXYCODONE-ACETAMINOPHEN 5-325 MG TABLET PO ONE (23:43)
[2019-10-16] MEDS ORDERED: PROMETHAZINE HCL 25 MG TABLET PO ONE (23:48)
--- NOTE | 2019-10-17 00:06 | ER Document Report ---
ED Wound - General Chief Complaint: Post Surgical Pain Stated Complaint: INCISION OPENED POST SURGERY Time Seen by Provider: 10/16/19 20:20 Mode of Arrival: Ambulatory Notes: Patient is a 29-year-old female that comes emergency department for chief complaint of concern about her wound at the umbilicus after a laparoscopic cholecystectomy yesterday by Dr. Canseco at this facility. She states that she has had a gastric bypass and appendectomy through the umbilicus as well. She denies fever, she states she vomited once in surgery but has not since and has been able to tolerate p.o. including her pain medications. She is moving her bowels. She states she bled through the dressing over the area and became concerned and came in. She states that she did call and was advised to come here by the surgeon. TRAVEL OUTSIDE OF THE [place] IN LAST 30 DAYS: No - Related Data Allergies/Adverse Reactions: hydrocodone Adverse Reaction (Verified 04/27/19 23:35) Nausea, vomiting oxycodone Adverse Reaction (Verified 04/27/19 23:35) Nausea, vomiting Surgical Glue Adverse Reaction (Uncoded 04/27/19 23:35) Rash Home Medications: Levothyroxine. Flourinef. Hydrocdone (post surgical meds). Promethezine (post surgical meds). Zofran (post surgical meds) Past Medical History - General Information source: Patient - Social History Smoking Status: Never Smoker Frequency of alcohol use: None Drug Abuse: None Family History: Reviewed & Not Pertinent, Other - Unknown Patient has suicidal ideation: No Patient has homicidal ideation: No - Past Medical History Cardiac Medical History: Denies: Hx Coronary Artery Disease, Hx Heart Attack, Hx Hypertension Pulmonary Medical History: Reports: Hx Pneumonia - 2 MONTHS AGO Denies: Hx Asthma, Hx Bronchitis, Hx COPD Neurological Medical History: Denies: Hx Cerebrovascular Accident, Hx Seizures Endocrine Medical History: Reports: Hx Graves' Disease Renal/ Medical History: Denies: Hx Peritoneal Dialysis Musculoskeletal Medical History: Denies Hx Arthritis Psychiatric Medical History: Reports: Hx Depression, Hx Post Traumatic Stress Disorder Past Surgical History: Reports: Hx Abdominal Surgery - gastric bypass, Hx Appendectomy, Hx Tonsillectomy - Immunizations Hx Diphtheria, Pertussis, Tetanus Vaccination: Yes Review of Systems - Review of Systems Constitutional: No symptoms reported EENT: No symptoms reported Cardiovascular: No symptoms reported Respiratory: No symptoms reported Gastrointestinal: See HPI Genitourinary: No symptoms reported Female Genitourinary: No symptoms reported Musculoskeletal: No symptoms reported Skin: See HPI Hematologic/Lymphatic: No symptoms reported Neurological/Psychological: No symptoms reported Physical Exam - Vital signs Vitals: Temp Pulse Resp BP Pulse Ox 98.8 F 96 18 105/67 99 10/16/19 19:00 10/16/19 19:00 10/16/19 19:00 10/16/19 19:00 10/16/19 19:00 - Notes Notes: GENERAL: Alert, interacts well. No acute distress. HEAD: Normocephalic, atraumatic. EYES: Pupils equal, round, and reactive to light. Extraocular movements intact. ENT: Oral mucosa moist, tongue midline. Oropharynx unremarkable. Airway patent. LUNGS: Clear to auscultation bilaterally, no wheezes, rales, or rhonchi. No respiratory distress. HEART: Regular rate and rhythm. No murmur ABDOMEN: Minimal generalized tenderness, postop wounds Steri-Stripped. Non- distended. There is a area of dried bleeding over the bottom of the umbilicus without surrounding erythema, purulent drainage, or notable tenderness. EXTREMITIES: Moves all 4 extremities spontaneously. No edema, normal radial and dorsalis pedis pulses bilaterally. No cyanosis. BACK: no cervical, thoracic, lumbar midline tenderness. No saddle anesthesia, normal distal neurovascular exam. Moves all extremities in full range of motion. NEUROLOGICAL: Alert and oriented x3. Normal speech. Cranial nerves II through XII grossly intact. PSYCH: Normal affect, normal mood. SKIN: Warm, dry, normal turgor. No rashes or lesions noted. Course - Re-evaluation Re-evalutation: Nursing staff reported to me that Dr. Conti had requested to be informed when the patient arrived, I did call him and tell him that there was an area that appeared to ablate at the umbilicus but there is is a closed wound, Q-tip does not penetrate down into the abdomen through the umbilicus. There is no hemorrhage at this time, abdomen is unremarkable, patient is well-appearing Dr. Conti did come evaluate the patient at bedside, area cleaned and Dermabond placed, patient can follow-up in the surgical clinic. Discussed details and return precautions with patient. She states understanding and agreement. - Vital Signs Vital signs: Temp Pulse Resp BP Pulse Ox 98.8 F 89 18 140/87 H 99 10/16/19 19:00 10/17/19 00:15 10/17/19 00:15 10/17/19 00:15 10/17/19 00:15 Procedures - Laceration/Wound Repair umbilical Wound length (cm): 1 Wound's Depth, Shape: Superficial, Linear Laceration pre-procedure: Sterile PPE donned, Sterile drapes applied, Shur-Clens applied Wound explored: Clean Wound Repaired With: Dermabond Layer Closure?: No Notes: Performed by Dr. Conti Discharge - Discharge Clinical Impression: Hemorrhage from wound Condition: Stable Disposition: HOME, SELF-CARE Additional Instructions: The superficial wound that was bleeding has been repaired with Dermabond. This will protect the area, this should fall off in about 5-7 days on its own. You can clean the area but avoid soaking or scrubbing the area. If the dermabond has not come off on its own after a week you can remove this by applying a topical antibiotic. Follow-up with the surgical clinic as planned. Return for any concerning symptoms including signs of infection such as pain, developing re dness, fever, or any other concerning or worsening symptoms.
[2019-10-17 00:17] VITALS: BP 140/87
== END 2019-10-17 00:20 | disposition home or self-care (01) ==
LOC: ER 18:48
DX: L76.22 Postprocedural hemorrhage of skin and subcutaneous tissue following other procedure (principal); Z98.84 Bariatric surgery status; Y83.2 Surgical operation with anastomosis, bypass or graft as the cause of abnormal reaction of the patient, or of later complication, without mention of misadventure at the time of the procedure; Z90.49 Acquired absence of other specified parts of digestive tract
CPT/HCPCS: 99283; 12001; A9270 ×4; S0119

== ENCOUNTER 2019-11-17 14:35 | Emergency (ER) | payer MEDICAID, MEDICARE ==
--- NOTE | 2019-11-17 15:26 | ER Document Report ---
ED Medical Screen (RME) - General Chief Complaint: Syncope Stated Complaint: POSSIBLE SYNCOPE Time Seen by Provider: 11/17/19 15:22 Primary Care Provider: KEVAN ALEJANDRE FNP-C [Primary Care Provider] - Follow up as needed Mode of Arrival: Ambulatory Information source: Patient Notes: 29-year-old female patient presents emergency department chief complaint of multiple syncopal episodes today. Patient went to her primary care provider and they referred her here. They report that she had at least 10 episodes of syncope today and she was tachycardic with a heart rate in the low 100s. She reports multiple episodes of diarrhea lately. Denies any chest pain, shortness of breath. Patient alert, oriented, answering all questions appropriately, no acute distres s noted. Lung sounds clear and equal bilaterally. I have greeted and performed a rapid initial assessment of this patient. A comprehensive ED assessment and evaluation of the patient, analysis of test results and completion of the medical decision making process will be conducted by additional ED providers. I have specifically instructed the patient or family members with the patient to immediately return to any nursing staff should anything change in the patient's condition or with their chief complaint. TRAVEL OUTSIDE OF THE [place] IN LAST 30 DAYS: No - Related Data Allergies/Adverse Reactions: hydrocodone Adverse Reaction (Verified 11/17/19 15:20) Nausea, vomiting oxycodone Adverse Reaction (Verified 11/17/19 15:20) Nausea, vomiting Surgical Glue Adverse Reaction (Uncoded 11/17/19 15:20) Rash Home Medications: levothyroxine Past Medical History - Social History Frequency of alcohol use: None Drug Abuse: Marijuana - Past Medical History Cardiac Medical History: Denies: Hx Coronary Artery Disease, Hx Heart Attack, Hx Hypertension Pulmonary Medical History: Reports: Hx Pneumonia - 2 MONTHS AGO Denies: Hx Asthma, Hx Bronchitis, Hx COPD Neurological Medical History: Denies: Hx Cerebrovascular Accident, Hx Seizures Endocrine Medical History: Reports: Hx Graves' Disease Renal/ Medical History: Denies: Hx Peritoneal Dialysis Musculoskeltal Medical History: Denies Hx Arthritis Psychiatric Medical History: Reports: Hx Depression, Hx Post Traumatic Stress Disorder Past Surgical History: Reports: Hx Abdominal Surgery - gastric bypass, Hx Appendectomy, Hx Tonsillectomy - Immunizations Hx Diphtheria, Pertussis, Tetanus Vaccination: Yes Physical Exam - Vital signs Vitals: Temp Resp BP 98.9 F 20 117/76 11/17/19 15:09 11/17/19 15:09 11/17/19 15:09 Course - Vital Signs Vital signs: Temp Pulse Resp BP Pulse Ox 98.9 F 20 117/76 11/17/19 15:09 11/17/19 15:09 11/17/19 15:09 Doctor's Discharge - Discharge Referrals: KEVAN ALEJANDRE FNP-C [Primary Care Provider] - Follow up as needed
[2019-11-17] MEDS ORDERED: NORMAL SALINE 1000 ML 1,000 ML IV ONE ×2 (15:32→17:01)
[2019-11-17 16:53] LABS: ABSOLUTE BASOPHILS # (AUTO) 0.1 10^3/uL (0.0-0.2); ABSOLUTE EOSINOPHILS # (AUTO) 0.5 10^3/uL (0.0-0.6); ABSOLUTE MONOCYTES (AUTO) 0.5 10^3/uL (0.1-1.4); BASOPHILS % (AUTO) 0.8 % (0-2); EOSINOPHILS % (AUTO) 4.8 % (0-6); HEMATOCRIT 40.3 % (36.0-47.0); HEMOGLOBIN 13.7 g/dL (12.0-15.5); MEAN CORPUSCULAR HEMOGLOBIN 29.9 pg (27.0-33.4); MEAN CORPUSCULAR VOLUME 88 fl (80-97); MONOCYTES % (AUTO) 5.1 % (3-13); PLATELET COUNT 364 10^3/uL (150-450); RED BLOOD COUNT 4.59 10^6/uL (3.72-5.28); RED CELL DISTRIBUTION WIDTH 14.5 % (11.5-14.0); SEGMENTED NEUTROPHILS % (AUTO) 49.3 % (42-78); TOTAL CELLS COUNTED % (AUTO) 100 %; WHITE BLOOD COUNT 10.1 10^3/uL (4.0-10.5)
[2019-11-17 16:58] LABS: APPEARANCE,URINE SLIGHTLY-CLOUDY; BILIRUBIN,URINE NEGATIVE (NEGATIVE); COLOR,URINE YELLOW; GLUCOSE, URINE 50 mg/dL (NEGATIVE); KETONES,URINE NEGATIVE (NEGATIVE); LEUKOCYTE ESTERASE,URINE NEGATIVE (NEGATIVE); NITRITE,URINE NEGATIVE (NEGATIVE); PROTEIN,URINE NEGATIVE (NEGATIVE); URINE SPECIFIC GRAVITY 1.017
[2019-11-17 17:14] LABS: ALBUMIN 4.8 g/dL (3.5-5.0); ALKALINE PHOSPHATASE 97 U/L (38-126); ANION GAP 9 (5-19); ASPARTATE AMINO TRANSFERASE 39 U/L (14-36); BILIRUBIN,TOTAL 0.4 mg/dL (0.2-1.3); BLOOD UREA NITROGEN 7 mg/dL (7-20); CALCIUM 9.8 mg/dL (8.4-10.2); CARBON DIOXIDE 27 mmol/L (22-30); CHLORIDE 101 mmol/L (98-107); GLUCOSE 87 mg/dL (75-110); POTASSIUM 4.4 mmol/L (3.6-5.0); TOTAL PROTEIN 7.8 g/dL (6.3-8.2)
--- NOTE | 2019-11-17 17:44 | ER Document Report ---
ED Syncope and Near Syncope - General Chief Complaint: Syncope Stated Complaint: POSSIBLE SYNCOPE Time Seen by Provider: 11/17/19 15:22 Primary Care Provider: KEVAN ALEJANDRE FNP-C [Primary Care Provider] - Follow up as needed Mode of Arrival: Ambulatory Notes: HPI: Patient is a 29-year-old female that presents today stating that she has had 2-3 bouts of nonbloody diarrhea almost daily for around 2 to 3 weeks. She denies any nausea, vomiting, abdominal pain, chest pain, or leg swelling. No weakness or numbness. Unfortunate history in the past of fatty liver disease as well as low thyroid and pots. Patient states she normally passes out around 1-2 times per day. She has had increased episodes since the diarrhea. This did occur when her gallbladder was removed about a month ago. She did receive intraoperative antibiotics at that time. ROS: See HPI All other review of systems reviewed and otherwise negative Reviewed vital signs and nursing note as charted by RN. PHYSICAL EXAM: CONSTITUTIONAL: Alert and oriented and responds appropriately to questions. Well-appearing; well-nourished HEAD: Normocephalic; atraumatic EYES: Sclerae non-icteric ENT: Normal nose; no rhinorrhea; moist mucous membranes; pharynx without lesions noted NECK: Supple without meningismus; non-tender; no cervical lymphadenopathy, no masses CARD: Regular rate and rhythm; no murmurs; symmetric distal pulses RESP: Normal chest excursion without splinting or tachypnea; breath sounds clear and equal bilaterally ABD/GI: Normal bowel sounds; non-distended; soft, non-tender to deep palpation of all 4 quadrants of the abdomen BACK: The back appears normal and is non-tender to palpation EXT: Normal ROM in all joints; non-tender to palpation; no edema SKIN: No acute lesions noted NEURO: CN 2-12 intact; 5/5 bilateral upper and lower extremity strength with sensation intact to light touch PSYCH: The patient's mood and manner are appropriate. Grooming and personal hygiene are appropriate. TRAVEL OUTSIDE OF THE [place] IN LAST 30 DAYS: No - Related Data Allergies/Adverse Reactions: hydrocodone Adverse Reaction (Verified 11/17/19 15:20) Nausea, vomiting oxycodone Adverse Reaction (Verified 11/17/19 15:20) Nausea, vomiting Surgical Glue Adverse Reaction (Uncoded 11/17/19 15:20) Rash Home Medications: levothyroxine Past Medical History - General Information source: Patient - Social History Smoking Status: Never Smoker Frequency of alcohol use: None Drug Abuse: Marijuana Family History: Reviewed & Not Pertinent, Other - Unknown Patient has suicidal ideation: No Patient has homicidal ideation: No - Past Medical History Cardiac Medical History: Denies: Hx Coronary Artery Disease, Hx Heart Attack, Hx Hypertension Pulmonary Medical History: Reports: Hx Pneumonia - 2 MONTHS AGO Denies: Hx Asthma, Hx Bronchitis, Hx COPD Neurological Medical History: Denies: Hx Cerebrovascular Accident, Hx Seizures Endocrine Medical History: Reports: Hx Graves' Disease Renal/ Medical History: Denies: Hx Peritoneal Dialysis Musculoskeletal Medical History: Denies Hx Arthritis Psychiatric Medical History: Reports: Hx Depression, Hx Post Traumatic Stress Disorder Past Surgical History: Reports: Hx Abdominal Surgery - gastric bypass, Hx Appendectomy, Hx Cholecystectomy, Hx Hysterectomy - partial, Hx Tonsillectomy - Immunizations Hx Diphtheria, Pertussis, Tetanus Vaccination: Yes Physical Exam - Vital signs Vitals: Temp Resp BP 98.9 F 20 117/76 11/17/19 15:09 11/17/19 15:09 11/17/19 15:09 Course - Re-evaluation Re-evalutation: Given the history and physical examination this very well-appearing female no acute distress currently with stable heart rate and blood pressure, with a history of pots, with some intermittent diarrhea having increased episodes of syncope without chest pain or shortness of breath, we will provide fluids and reassess. Patient denies any and all chest or abdominal pain. Abdomen is very benign on exam. We will send a C. difficile sample if the patient is able to collect one. 11/17/19 17:44 Labs initially as recorded. 11/17/19 18:02 EKG shows heart of 78, normal sinus rhythm, no ST elevation or depression. In verted T waves in lead III 11/17/19 18:22 Labs as recorded. Patient has received 2 L of fluid. Patient still denies any chest or abdominal pain. Orthostatics as recorded. No appreciable change. Patient denies feeling lightheadedness or dizziness when standing. I have offered the patient admission and she believes that she is safe to go home. I have expressed that the patient can return at any time that she would like for further assessment and treatment. Given the patient's history with syncopal episodes daily, with some diarrhea, with rehydration, with no diarrhea or vomiting here, I do believe that this is a reasonable option for the patient to take. Strict return precautions as I have said have been explained and the patient understands these directly explained to her. - Vital Signs Vital signs: Temp Pulse Resp BP Pulse Ox 98.9 F 80 18 116/66 100 11/17/19 15:09 11/17/19 18:21 11/17/19 17:10 11/17/19 18:21 11/17/19 17:10 - Laboratory Result Diagrams: 11/17/19 16:30 11/17/19 16:30 Laboratory results interpreted by me: 11/17/19 11/17/19 11/17/19 16:30 16:30 16:30 RDW 14.5 H Creatinine 0.50 L AST 39 H Urine Glucose (UA) 50 H Urine Urobilinogen 2.0 H Discharge - Discharge Clinical Impression: Dehydration, Acute diarrhea Syncope Qualifiers: Syncope type: unspecified Qualified Code(s): R55 - Syncope and collapse Condition: Good Disposition: HOME, SELF-CARE Additional Instructions: Come back in any time that you would like for further assessment and treatment. Come back immediately for any pain, fevers, vomiting, worsening diarrhea, blood in the diarrhea, abdominal or chest pain, repeat episodes of syncope, or any other acute problems. Please attempt to stay well-hydrated and follow-up with your primary doctor as we have discussed. Referrals: KEVAN ALEJANDRE FNP-C [Primary Care Provider] - Follow up as needed
[2019-11-17] MEDS ORDERED: HYDROCODONE/ACETAMINOPHEN 5-325 MG TABLET PO ONE (17:57)
[2019-11-17 19:08] VITALS: BP 111/78
--- NOTE | 2019-11-18 07:14 | EKG REPORT ---
SEVERITY:- OTHERWISE NORMAL ECG - SINUS ARRHYTHMIA, RATE [id number] : Confirmed by: Gerber Machado MD 18-Nov-2019 07:13:56
== END 2019-11-17 19:21 | disposition home or self-care (01) ==
LOC: ER 14:35
DX: E86.0 Dehydration (principal); R19.7 Diarrhea, unspecified; R55 Syncope and collapse; Z88.6 Allergy status to analgesic agent; Z98.84 Bariatric surgery status; Z90.49 Acquired absence of other specified parts of digestive tract; Z90.710 Acquired absence of both cervix and uterus
CPT/HCPCS: 93005; 99284; 96360; 36415; 85025; 81025; 80053; 81001; 93010; J7030; A9270

== ENCOUNTER 2019-11-18 19:53 | Emergency (ER) | payer MEDICARE ==
--- NOTE | 2019-11-18 20:23 | ER Document Report ---
ED Medical Screen (RME) - General Chief Complaint: Passed Out Prior to Arrival Stated Complaint: SYNCOPE (PASSED OUT 6 TIMES TODAY) Time Seen by Provider: 11/18/19 20:21 Primary Care Provider: KEVAN ALEJANDRE FNP-C [Primary Care Provider] - Follow up as needed Notes: 29-year-old female recently diagnosed with POTS presents after 8 syncopal episodes. Patient states she can feel when they come on. Patient states she was seen here in the ER for this yesterday and "convince them to let her go home." Patient states she passed out again in the ER waiting room but did not hit her head. Patient states associated nausea. Patient denies any chest pain, dyspnea, fever, vomiting, abdominal pain. EKG initiated. Nontoxic, well- appearing. I have greeted and performed a rapid initial assessment of this patient. A comprehensive ED assessment and evaluation of the patient, analysis of test results and completion of the medical decision making process with be conducted by additional ED providers. TRAVEL OUTSIDE OF THE [place] IN LAST 30 DAYS: No - Related Data Allergies/Adverse Reactions: hydrocodone Adverse Reaction (Verified 11/17/19 15:20) Nausea, vomiting oxycodone Adverse Reaction (Verified 11/17/19 15:20) Nausea, vomiting Surgical Glue Adverse Reaction (Uncoded 11/17/19 15:20) Rash Past Medical History - Past Medical History Cardiac Medical History: Denies: Hx Coronary Artery Disease, Hx Heart Attack, Hx Hypertension Pulmonary Medical History: Reports: Hx Pneumonia - 2 MONTHS AGO Denies: Hx Asthma, Hx Bronchitis, Hx COPD Neurological Medical History: Denies: Hx Cerebrovascular Accident, Hx Seizures Endocrine Medical History: Reports: Hx Graves' Disease Renal/ Medical History: Denies: Hx Peritoneal Dialysis Musculoskeltal Medical History: Denies Hx Arthritis Psychiatric Medical History: Reports: Hx Depression, Hx Post Traumatic Stress Disorder Past Surgical History: Reports: Hx Abdominal Surgery - gastric bypass, Hx Appendectomy, Hx Cholecystectomy, Hx Hysterectomy - partial, Hx Tonsillectomy - Immunizations Hx Diphtheria, Pertussis, Tetanus Vaccination: Yes Physical Exam - Vital signs Vitals: Temp Pulse Resp BP Pulse Ox 97.6 F 88 18 120/65 100 11/18/19 20:00 11/18/19 20:00 11/18/19 20:00 11/18/19 20:00 11/18/19 20:00 Course - Vital Signs Vital signs: Temp Pulse Resp BP Pulse Ox 97.6 F 88 18 120/65 100 11/18/19 20:00 11/18/19 20:00 11/18/19 20:00 11/18/19 20:00 11/18/19 20:00 Doctor's Discharge - Discharge Referrals: KEVAN ALEJANDRE FNP-C [Primary Care Provider] - Follow up as needed
--- NOTE | 2019-11-18 21:02 | RADIOLOGY REPORT (SQ) ---
XR CHEST 2 VIEWS EXAM DATE: 11/18/2019 8:21 PM [facility] HISTORY: Syncope. COMPARISON: None. FINDINGS: Normal heart size without pulmonary edema pattern. No focal consolidation is identified. No pleural effusions or pneumothorax. IMPRESSION: No evidence of acute cardiopulmonary disease.
[2019-11-18 21:39] LABS: ABSOLUTE BASOPHILS # (AUTO) 0.1 10^3/uL (0.0-0.2); ABSOLUTE EOSINOPHILS # (AUTO) 0.5 10^3/uL (0.0-0.6); ABSOLUTE LYMPHOCYTES (AUTO) 4.7 10^3/uL (0.5-4.7); ABSOLUTE MONOCYTES (AUTO) 0.6 10^3/uL (0.1-1.4); ABSOLUTE NEUT (AUTO) 4.8 10^3/uL (1.7-8.2); BASOPHILS % (AUTO) 0.6 % (0-2); EOSINOPHILS % (AUTO) 4.8 % (0-6); HEMATOCRIT 38.7 % (36.0-47.0); LYMPHOCYTES % (AUTO) 43.8 % (13-45); MEAN CORPUSCULAR HEMOGLOBIN 29.9 pg (27.0-33.4); MEAN CORPUSCULAR HGB CONC 33.7 g/dL (32.0-36.0); MEAN CORPUSCULAR VOLUME 89 fl (80-97); MONOCYTES % (AUTO) 5.7 % (3-13); PLATELET COUNT 363 10^3/uL (150-450); RED BLOOD COUNT 4.36 10^6/uL (3.72-5.28); RED CELL DISTRIBUTION WIDTH 14.7 % (11.5-14.0); SEGMENTED NEUTROPHILS % (AUTO) 45.1 % (42-78); TOTAL CELLS COUNTED % (AUTO) 100 %; WHITE BLOOD COUNT 10.7 10^3/uL (4.0-10.5)
[2019-11-18 21:54] LABS: ALBUMIN 4.9 g/dL (3.5-5.0); ALKALINE PHOSPHATASE 103 U/L (38-126); ANION GAP 13 (5-19); ASPARTATE AMINO TRANSFERASE 32 U/L (14-36); BILIRUBIN,DIRECT 0.3 mg/dL (0.0-0.4); BILIRUBIN,TOTAL 0.4 mg/dL (0.2-1.3); BLOOD UREA NITROGEN 8 mg/dL (7-20); CALCIUM 9.8 mg/dL (8.4-10.2); CARBON DIOXIDE 28 mmol/L (22-30); CHLORIDE 99 mmol/L (98-107); GLUCOSE 84 mg/dL (75-110); POTASSIUM 3.9 mmol/L (3.6-5.0); TOTAL PROTEIN 8.4 g/dL (6.3-8.2)
--- NOTE | 2019-11-18 22:21 | EKG REPORT ---
SEVERITY:- BORDERLINE ECG - SINUS RHYTHM BORDERLINE T ABNORMALITIES, ANTERIOR LEADS : Confirmed by: Gerber Machado MD 18-Nov-2019 22:21:03
[2019-11-19] MEDS ORDERED: NORMAL SALINE 1000 ML 1,000 ML IV ONE ×2 (00:12→05:05)
--- NOTE | 2019-11-19 02:48 | RADIOLOGY REPORT (SQ) ---
EXAM DESCRIPTION: CT HEAD WITHOUT IV CONTRAST COMPLETED DATE/TME: 11/19/2019 00:11 CLINICAL HISTORY: 29 years, Female, syncope COMPARISON: 04/28/2019 TECHNIQUE: Axial CT images of the brain were obtained without contrast. Sagittal and coronal reformats were performed. DL 1043 Images stored on PACS. All CT scanners at this facility use dose modulation, iterative reconstruction, and/or weight based dosing when appropriate to reduce radiation dose to as low as reasonably achievable (ALARA). [facility]: Dose Right [facility]: CareDose [facility]: Dose Right [facility]: Teradose 4D [facility]: [employer] LIMITATIONS: None. FINDINGS: There is no acute cortical infarct, hemorrhage, mass, edema, hydrocephalus, or extra-axial fluid collection. The parsons-white matter differentiation is preserved. The paranasal sinuses and mastoid air cells are clear. The bones are unremarkable. IMPRESSION: No acute intracranial abnormality TECHNICAL DOCUMENTATION: Quality ID # [id number]: Final reports with documentation of one or more dose reduction techniques (e.g., Automated exposure control, adjustment of the mA and/or kV according to patient size, use of iterative reconstruction technique) copyright 2011 [employer]- All Rights Reserved
[2019-11-19 03:03] LABS: APPEARANCE,URINE CLOUDY; BILIRUBIN,URINE NEGATIVE (NEGATIVE); COLOR,URINE YELLOW; GLUCOSE, URINE NEGATIVE (NEGATIVE); KETONES,URINE NEGATIVE (NEGATIVE); PROTEIN,URINE NEGATIVE (NEGATIVE); URINE SPECIFIC GRAVITY 1.023; UROBILINOGEN,URINE NEGATIVE mg/dL (<2.0)
--- NOTE | 2019-11-19 05:50 | ER Document Report ---
Entered by AMPARO GARCIA SCRIBE 11/19/19 0414 Acting as scribe for:ROSA ELENA ZHU MD ED General - General Chief Complaint: Syncope Stated Complaint: SYNCOPE (PASSED OUT 6 TIMES TODAY) Time Seen by Provider: 11/18/19 20:21 Primary Care Provider: KEVAN ALEJANDRE FNP-C [Primary Care Provider] - Follow up as needed Information source: Patient Notes: 29-year-old female presents to the emergency department complaining of numerous syncope episodes prior to arrival. Patient stated that in the last 5 days, she reportedly has had over 30 syncope episodes. Patient reports poor appetite and diarrhea. Patient denies seizure and migraines. Patient states that she was diagnosed with POTS 4 months ago. TRAVEL OUTSIDE OF THE [place] IN LAST 30 DAYS: No - Related Data Allergies/Adverse Reactions: hydrocodone Adverse Reaction (Verified 11/18/19 20:56) Nausea, vomiting oxycodone Adverse Reaction (Verified 11/18/19 20:56) Nausea, vomiting Surgical Glue Adverse Reaction (Uncoded 11/18/19 20:56) Rash Past Medical History - General Information source: Patient - Social History Smoking Status: Never Smoker Cigarette use (# per day): No Chew tobacco use (# tins/day): No Frequency of alcohol use: None Drug Abuse: Marijuana Family History: Reviewed & Not Pertinent Patient has suicidal ideation: No Patient has homicidal ideation: No Pulmonary Medical History: Reports: Hx Pneumonia - 2 MONTHS AGO Endocrine Medical History: Reports: Hx Graves' Disease Psychiatric Medical History: Reports: Hx Depression, Hx Post Traumatic Stress Disorder Past Surgical History: Reports: Hx Abdominal Surgery - gastric bypass, Hx Appendectomy, Hx Cholecystectomy, Hx Hysterectomy - partial, Hx Tonsillectomy - Immunizations Hx Diphtheria, Pertussis, Tetanus Vaccination: Yes Review of Systems - Review of Systems Constitutional: No symptoms reported EENT: No symptoms reported Cardiovascular: See HPI, Syncope Respiratory: No symptoms reported Gastrointestinal: See HPI, Diarrhea Genitourinary: No symptoms reported Female Genitourinary: No symptoms reported Musculoskeletal: No symptoms reported Skin: No symptoms reported Hematologic/Lymphatic: No symptoms reported Neurological/Psychological: See HPI. denies: Seizure, Headaches -: Yes All other systems reviewed and negative Physical Exam - Vital signs Vitals: Temp Pulse Resp BP Pulse Ox 97.6 F 88 18 120/65 100 11/18/19 20:00 11/18/19 20:00 11/18/19 20:00 11/18/19 20:00 11/18/19 20:00 - Notes Notes: Physical Exam: General: Alert, appears well. HEENT: Normocephalic. Atraumatic. PERRL. Extraocular movements intact. Oropharynx clear. Neck: Supple. Non-tender. Respiratory: No respiratory distress. Clear and equal breath sounds bilaterally. Cardiovascular: Regular rate and rhythm. Abdominal: Normal Inspection. Non-tender. No distension. Normal Bowel Sounds. Back: No gross abnormalities. Extremities: Moves all four extremities. Upper extremities: Normal inspection. Normal ROM. Lower extremities: Normal inspection. No edema. Normal ROM. Neurological: Normal cognition. AAOx4. Normal speech. Psychological: Normal affect. Normal Mood. Skin: Warm. Dry. Normal color. Course - Vital Signs Vital signs: Temp Pulse Resp BP Pulse Ox 98.3 F 78 13 100/59 L 97 11/19/19 01:48 11/19/19 04:50 11/19/19 05:01 11/19/19 05:01 11/19/19 05:01 11/19/19 05:45 Patient is resting comfortably in bed lying flat orthostatic blood pressure and pulse checks disclosed with patient does have no drop in her blood pressure when she stands but her heart rate does go from 80-1 20. Therefore patient is receiving a second liter of normal saline bolus and will recheck her orthostatic blood pressure and pulse. - Laboratory Result Diagrams: 11/18/19 21:17 11/18/19 21:17 Laboratory results interpreted by me: 11/18/19 11/18/19 21:17 21:17 WBC 10.7 H RDW 14.7 H Total Protein 8.4 H - Diagnostic Test Radiology reviewed: Image reviewed, Reports reviewed Radiology results interpreted by me: 02 CT scan of head did not disclose any acute infarct or any tumor mass or any abnormality about the parenchymal of the brain. 11/19/19 05:47 Chest x-ray shows no acute process no infiltrate. - EKG Interpretation by Me Additional EKG results interpreted by me: 11/19/19 05:49 Twelve-lead EKG shows normal sinus rhythm rate of 81 borderline T wave abnormalities anterior leads. Discharge - Discharge Clinical Impression: Dehydration, Orthostatic hypotension Disposition: HOME, SELF-CARE Additional Instructions: Orthostatic Hypotension You have orthostatic hypotension. Your blood pressure goes down when you stand up. Symptoms can include dizziness, transient loss of vision, ringing in the ears, nausea, and fainting. At this time, there's no evidence of a serious problem requiring hospitalization. Orthostatic hypotension can be caused by dehydration, poor nutrition, over- exercise, or medication. For some people, orthostatic hypotension is an ongoing problem, and no cause can be found. We usually treat orthostatic hypotension with fluids. We look for a treatable cause. If no cause was found, you should get enough rest, exercise moderately, and get plenty of fluids. When you feel the first symptoms suggesting you might faint, sit or squat down as quickly as you can. If symptoms don't go away quickly, lie down. Call the doctor or return if you are worsening or if new symptoms develop. Referrals: KEVAN ALEJANDRE, SHARMIN-C [Primary Care Provider] - Follow up as needed I personally performed the services described in the documentation, reviewed and edited the documentation which was dictated to the scribe in my presence, and it accurately records my words and actions.
[2019-11-19 06:49] VITALS: BP 99/66
== END 2019-11-19 07:01 | disposition home or self-care (01) ==
LOC: ER 19:53
DX: I95.1 Orthostatic hypotension (principal); E86.0 Dehydration; R63.0 Anorexia; R19.7 Diarrhea, unspecified
CPT/HCPCS: 36415; 70450; 71046; 80053; 81001; 84484; 84703; 85025; 93005; 93010; 96360; 96361; 99284; J7030

== ENCOUNTER 2020-02-02 09:58 | Emergency (ER) | payer MEDICARE, MEDICAID ==
--- NOTE | 2020-02-02 10:11 | ER Document Report ---
ED Medical Screen (RME) - General Chief Complaint: Fainting Stated Complaint: SYNCOPAL EPISODE Time Seen by Provider: 02/02/20 10:07 Primary Care Provider: KEVAN ALEJANDRE FNP-C [Primary Care Provider] - Follow up as needed Mode of Arrival: Wheelchair Information source: Patient Notes: 30-year-old female with history of pots presenting to the emergency department f or increased frequency of syncopal episodes over the last 3 to 4 days. Patient reports she has passed out multiple times and states that she feels very confused when she wakes up. She states this was a new finding for her. Denies any abdominal pain, shortness of breath, chest pain, nausea, vomiting, diarrhea or fever. Patient is alert, oriented, answering all questions appropriately, seems a l ittle sleepy. I have greeted and performed a rapid initial assessment of this patient. A comprehensive ED assessment and evaluation of the patient, analysis of test results and completion of the medical decision making process will be conducted by additional ED providers. I have specifically instructed the patient or family members with the patient to immediately return to any nursing staff arnel uld anything change in the patient's condition or with their chief complaint. TRAVEL OUTSIDE OF THE [place] IN LAST 30 DAYS: No - Related Data Allergies/Adverse Reactions: hydrocodone Adverse Reaction (Verified 11/18/19 20:56) Nausea, vomiting oxycodone Adverse Reaction (Verified 11/18/19 20:56) Nausea, vomiting Surgical Glue Adverse Reaction (Uncoded 11/18/19 20:56) Rash Past Medical History - Past Medical History Cardiac Medical History: Denies: Hx Coronary Artery Disease, Hx Heart Attack, Hx Hypertension Pulmonary Medical History: Reports: Hx Pneumonia - 2 MONTHS AGO Denies: Hx Asthma, Hx Bronchitis, Hx COPD Neurological Medical History: Denies: Hx Cerebrovascular Accident, Hx Seizures Endocrine Medical History: Reports: Hx Graves' Disease Renal/ Medical History: Denies: Hx Peritoneal Dialysis Musculoskeltal Medical History: Denies Hx Arthritis Psychiatric Medical History: Reports: Hx Depression, Hx Post Traumatic Stress Disorder Past Surgical History: Reports: Hx Abdominal Surgery - gastric bypass, Hx Appendectomy, Hx Cholecystectomy, Hx Hysterectomy - partial, Hx Tonsillectomy - Immunizations Hx Diphtheria, Pertussis, Tetanus Vaccination: Yes Physical Exam - Vital signs Vitals: Temp Pulse Resp BP Pulse Ox 98.8 F 92 18 120/81 98 02/02/20 10:04 02/02/20 10:04 02/02/20 10:04 02/02/20 10:04 02/02/20 10:04 Course - Vital Signs Vital signs: Temp Pulse Resp BP Pulse Ox 98.8 F 92 18 120/81 98 02/02/20 10:04 02/02/20 10:04 02/02/20 10:04 02/02/20 10:04 02/02/20 10:04 Doctor's Discharge - Discharge Referrals: KEVAN ALEJANDRE, VESSEL SLAGMAN-C [Primary Care Provider] - Follow up as needed
[2020-02-02 10:34] LABS: ABSOLUTE BASOPHILS # (AUTO) 0.1 10^3/uL (0.0-0.2); ABSOLUTE EOSINOPHILS # (AUTO) 0.2 10^3/uL (0.0-0.6); ABSOLUTE LYMPHOCYTES (AUTO) 1.9 10^3/uL (0.5-4.7); ABSOLUTE MONOCYTES (AUTO) 0.5 10^3/uL (0.1-1.4); ABSOLUTE NEUT (AUTO) 3.7 10^3/uL (1.7-8.2); BASOPHILS % (AUTO) 1.1 % (0-2); EOSINOPHILS % (AUTO) 3.7 % (0-6); HEMOGLOBIN 13.7 g/dL (12.0-15.5); LYMPHOCYTES % (AUTO) 29.8 % (13-45); MEAN CORPUSCULAR HEMOGLOBIN 30.2 pg (27.0-33.4); MEAN CORPUSCULAR HGB CONC 34.3 g/dL (32.0-36.0); MEAN CORPUSCULAR VOLUME 88 fl (80-97); MONOCYTES % (AUTO) 7.8 % (3-13); PLATELET COUNT 356 10^3/uL (150-450); RED BLOOD COUNT 4.54 10^6/uL (3.72-5.28); SEGMENTED NEUTROPHILS % (AUTO) 57.6 % (42-78); TOTAL CELLS COUNTED % (AUTO) 100 %; WHITE BLOOD COUNT 6.4 10^3/uL (4.0-10.5)
--- NOTE | 2020-02-02 10:38 | ER Document Report ---
ED General - General Chief Complaint: Syncope Stated Complaint: SYNCOPAL EPISODE Time Seen by Provider: 02/02/20 10:07 Primary Care Provider: KEVAN ALEJANDRE FNP-C [Primary Care Provider] - Follow up as needed Mode of Arrival: Wheelchair Notes: HPI: 30-year-old female with past medical history as recorded including rheumatoid arthritis and pots followed by the food scientist Dr. Bernabe at [facility] on [facility] for 1 year who presents today with a few episodes of syncope over the last 3 days. She denies any and all headache, chest pain, palpitations, abdominal pain, fevers, vomiting, or diarrhea. She states she has some bilateral consistent and chronic hand joint pain. These were witnessed episodes. No seizure activity or incontinence. ROS: See HPI All other review of systems reviewed and otherwise negative Reviewed vital signs and nursing note as charted by RN. PHYSICAL EXAM: CONSTITUTIONAL: Alert and oriented and responds appropriately to questions. Well-appearing; well-nourished HEAD: Normocephalic; atraumatic EYES: PERRL; full extraocular range of motion. No nystagmus ENT: Normal nose; no rhinorrhea; moist mucous membranes; pharynx without lesions noted NECK: Supple without meningismus; non-tender; no cervical lymphadenopathy, no masses CARD: Regular rate and rhythm; no murmurs; symmetric distal pulses RESP: Normal chest excursion without splinting or tachypnea; breath sounds clear and equal bilaterally; no wheezes, no rhonchi, no rales ABD/GI: Normal bowel sounds; non-distended; soft, non-tender; no palpable organomegaly or masses BACK: The back appears normal and is non-tender to palpation EXT: Normal ROM in all joints; non-tender to palpation; no edema SKIN: No acute lesions noted NEURO: CN 2-12 intact; 5/5 bilateral upper and lower extremity strength with sensation intact to light touch PSYCH: The patient's mood and manner are appropriate. Grooming and personal hygiene are appropriate. TRAVEL OUTSIDE OF THE [place] IN LAST 30 DAYS: No - Related Data Allergies/Adverse Reactions: hydrocodone Adverse Reaction (Verified 02/02/20 10:24) Nausea, vomiting oxycodone Adverse Reaction (Verified 02/02/20 10:24) Nausea, vomiting Surgical Glue Adverse Reaction (Uncoded 02/02/20 10:24) Rash Past Medical History - General Information source: Patient - Social History Smoking Status: Never Smoker Family History: Reviewed & Not Pertinent Patient has suicidal ideation: No Patient has homicidal ideation: No - Past Medical History Cardiac Medical History: Denies: Hx Coronary Artery Disease, Hx Heart Attack, Hx Hypertension Pulmonary Medical History: Reports: Hx Pneumonia - 2 MONTHS AGO Denies: Hx Asthma, Hx Bronchitis, Hx COPD Neurological Medical History: Denies: Hx Cerebrovascular Accident, Hx Seizures Endocrine Medical History: Reports: Hx Graves' Disease Renal/ Medical History: Denies: Hx Peritoneal Dialysis Musculoskeletal Medical History: Denies Hx Arthritis Psychiatric Medical History: Reports: Hx Depression, Hx Post Traumatic Stress Disorder Past Surgical History: Reports: Hx Abdominal Surgery - gastric bypass, Hx Appendectomy, Hx Cholecystectomy, Hx Hysterectomy - partial, Hx Tonsillectomy - Immunizations Hx Diphtheria, Pertussis, Tetanus Vaccination: Yes Physical Exam - Vital signs Vitals: Temp Pulse Resp BP Pulse Ox 98.8 F 92 18 120/81 98 02/02/20 10:04 02/02/20 10:04 02/02/20 10:04 02/02/20 10:04 02/02/20 10:04 Course - Re-evaluation Re-evalutation: 02/02/20 10:38 Given the history and physical, previous syncopal episodes, history of pots, on [facility] followed by cardiology, with no seizure-like activity or incontinence, no pain, no fevers or focal neurological deficits, we will obtain basic labs, electrolytes, EKG, orthostatic vital signs, and reassess. I would like to assess for the possibility of cardiac arrhythmia, electrolyte disturbance, or other etiology of the syncopal-like episodes. I do believe PE and dissection to be unlikely. EKG shows heart of 77, normal sinus rhythm, normal axis, no ST elevation or depression. 02/02/20 12:16 Orthostatics as recorded. Patient still denies any symptoms. EKG unremarkable. Orthostatics unremarkable. Normal hemoglobin and potassium levels. Patient will be provided a liter of fluid with strict return precautions and follow-up with the primary food scientist for further evaluation and assessment. Strict return precautions have been directly explained to the patient and she is comfortable with disposition. - Vital Signs Vital signs: Temp Pulse Resp BP Pulse Ox 98.8 F 92 24 H 113/89 H 100 02/02/20 10:08 02/02/20 10:04 02/02/20 10:39 02/02/20 10:39 02/02/20 10:39 - Laboratory Result Diagrams: 02/02/20 10:23 02/02/20 10:23 Laboratory results interpreted by me: 02/02/20 10:23 Sodium 136.0 L Creatinine 0.49 L AST 49 H ALT 38 H Discharge - Discharge Clinical Impression: Syncope and collapse Condition: Good Disposition: HOME, SELF-CARE Additional Instructions: Come back immediately for any repeat episodes, headache, chest pain, abdominal pain, fevers, vomiting, diarrhea, focal weakness or numbness, or any other acute problems. Please follow-up with the primary doctor and food scientist as discussed. Referrals: KEVAN ALEJANDRE FNP-C [Primary Care Provider] - Follow up as needed
[2020-02-02 11:06] LABS: ALBUMIN 4.8 g/dL (3.5-5.0); ALKALINE PHOSPHATASE 91 U/L (38-126); ANION GAP 11 (5-19); ASPARTATE AMINO TRANSFERASE 49 U/L (14-36); BILIRUBIN,TOTAL 0.8 mg/dL (0.2-1.3); BLOOD UREA NITROGEN 8 mg/dL (7-20); CALCIUM 10.2 mg/dL (8.4-10.2); CARBON DIOXIDE 25 mmol/L (22-30); CHLORIDE 100 mmol/L (98-107); GLUCOSE 102 mg/dL (75-110); POTASSIUM 4.4 mmol/L (3.6-5.0); TOTAL PROTEIN 7.9 g/dL (6.3-8.2)
[2020-02-02] MEDS ORDERED: NORMAL SALINE 1000 ML 1,000 ML IV ONE (12:18)
[2020-02-02 13:04] VITALS: BP 113/84
--- NOTE | 2020-02-02 15:13 | EKG REPORT ---
SEVERITY:- NORMAL ECG - SINUS RHYTHM : Confirmed by: Erna Gaspar MD 02-Feb-2020 15:12:36
== END 2020-02-02 13:17 | disposition home or self-care (01) ==
LOC: ER 09:58
DX: R55 Syncope and collapse (principal); M06.9 Rheumatoid arthritis, unspecified; Z79.52 Long term (current) use of systemic steroids; Z86.79 Personal history of other diseases of the circulatory system
CPT/HCPCS: 93005; 99284; 96360; 36415; 84703; 85025; 80053; 93010; J7030

== ENCOUNTER → 2020-02-19 | Outpatient (CLI) | payer MEDICARE, MEDICAID ==
--- NOTE | 2020-02-19 12:30 | RADIOLOGY REPORT (SQ) ---
EXAM DESCRIPTION: U/S THYROID/SFT TISS HD NECK IMAGES COMPLETED DATE/TIME: 02/19/2020 12:14 pm REASON FOR STUDY: HYPOTHYROIDISM, UNSPEC (E03.9) E03.9 HYPOTHYROIDISM, UNSPECIFIED COMPARISON: None. TECHNIQUE: Dynamic and static parsons-scale images acquired of the thyroid gland. Selected additional c olor/power Doppler images recorded. All images stored to PACS. LIMITATIONS: None. FINDINGS: RIGHT LOBE: The right lobe of the thyroid gland measures 1.9 x 0.8 x 0.8 cm. Heterogenou s echotexture. No cystic or solid masses. LEFT LOBE: The left lobe of the thyroid gland measures 2.0 x 0.8 x 0.7 cm. Heterogenous echotexture . No cystic or solid masses. ISTHMUS: The isthmus measures 2.3 mm in AP diameter, normal size. Heterogenous echotexture. No cy stic or solid masses. OTHER: No other significant finding. IMPRESSION: 1. The patient has a known history of hypothyroidism. Heterogenous echotexture to the thyroid gland. No discrete mass. TECHNICAL DOCUMENTATION: JOB ID: [id number] 2010 [employer]- All Rights Reserved Reading location - IP/workstation name: [email or web address]
== END ==
LOC: RAD 10:45
PROVIDERS: ATTEND Nurse Practitioner Family
DX: E03.9 Hypothyroidism, unspecified (principal)
CPT/HCPCS: 76536

== ENCOUNTER 2020-05-23 20:29 | Emergency (ER) | payer MEDICARE, MEDICAID ==
[2020-05-23] MEDS ORDERED: KETOROLAC TROMETHAMINE INJ/PF 30 MG/1 ML SDV IV ONE (23:23)
[2020-05-23] MEDS ORDERED: RINGERS SOLUTION,LACTATED 1,000 ML IV ONE (23:24)
--- NOTE | 2020-05-23 23:26 | ER Document Report ---
ED Medical Screen (RME) - General Chief Complaint: Shoulder Injury Stated Complaint: FAINTING SPELLS Time Seen by Provider: 05/23/20 23:17 Primary Care Provider: KEVAN ALEJANDRE FNP-C [Primary Care Provider] - Follow up as needed Mode of Arrival: Ambulatory Information source: Patient Notes: HPI; 30-year-old female presents to the emergency room complaining of frequent syncopal episodes over the past week. States she has a history of pots and she has been missing her IV infusions which she usually gets 3 times a week. Last 1 6 days ago. Tonight she said she passed out fell and landed on her right shoulder. Denies hitting her head. Denies loss of consciousness. Patient states she already has an issue with her right shoulder. Took Tylenol without relief. Most recent syncopal episode at 8 PM. Also complaining of a sore throat. Son recently diagnosed with strep. PE: Alert and oriented x3. Mild distress noted. Lungs: Clear to auscultation without rales, rhonchi, wheezes. Heart: Regular rate rhythm without murmurs, rubs, gallops. Painful range of motion to right shoulder with internal and external rotation. There is generalized tenderness to the entire right shoulder. There is no obvious deformity noted. I have greeted and performed a rapid initial assessment of this patient. A comprehensive ED assessment and evaluation of the patient, analysis of test results and completion of the medical decision making process will be conducted by additional ED providers. I have specifically instructed the patient or family members with the patient to immediately return to any nursing staff should anything change in the patient's condition or with their chief complaint. TRAVEL OUTSIDE OF THE [place] IN LAST 30 DAYS: No - Related Data Allergies/Adverse Reactions: hydrocodone Adverse Reaction (Verified 02/02/20 10:24) Nausea, vomiting oxycodone Adverse Reaction (Verified 02/02/20 10:24) Nausea, vomiting Surgical Glue Adverse Reaction (Uncoded 02/02/20 10:24) Rash Past Medical History - Social History Chew tobacco use (# tins/day): No Frequency of alcohol use: None Drug Abuse: Marijuana - Past Medical History Cardiac Medical History: Denies: Hx Coronary Artery Disease, Hx Heart Attack, Hx Hypertension Pulmonary Medical History: Reports: Hx Pneumonia - 2 MONTHS AGO Denies: Hx Asthma, Hx Bronchitis, Hx COPD Neurological Medical History: Denies: Hx Cerebrovascular Accident, Hx Seizures Endocrine Medical History: Reports: Hx Graves' Disease Renal/ Medical History: Denies: Hx Peritoneal Dialysis Musculoskeltal Medical History: Denies Hx Arthritis Psychiatric Medical History: Reports: Hx Depression, Hx Post Traumatic Stress Disorder Past Surgical History: Reports: Hx Abdominal Surgery - gastric bypass, Hx Appendectomy, Hx Cholecystectomy, Hx Hysterectomy - partial, Hx Tonsillectomy - Immunizations Hx Diphtheria, Pertussis, Tetanus Vaccination: Yes Physical Exam - Vital signs Vitals: Temp Pulse Resp BP Pulse Ox 98.0 F 64 18 111/73 100 05/23/20 21:27 05/23/20 21:27 05/23/20 21:27 05/23/20 21:27 05/23/20 21:27 Course - Vital Signs Vital signs: Temp Pulse Resp BP Pulse Ox 98.0 F 64 18 111/73 100 05/23/20 21:27 05/23/20 21:27 05/23/20 21:27 05/23/20 21:27 05/23/20 21:27 Doctor's Discharge - Discharge Referrals: KEVAN ALEJANDRE FNP-C [Primary Care Provider] - Follow up as needed
--- NOTE | 2020-05-23 23:48 | EKG REPORT ---
SEVERITY:- BORDERLINE ECG - SINUS RHYTHM BORDERLINE T ABNORMALITIES, ANTERIOR LEADS : Confirmed by: Dejan Wood MD 23-May-2020 23:47:54
[2020-05-24 00:42] LABS: ABSOLUTE EOSINOPHILS # (AUTO) 0.2 10^3/uL (0.0-0.6); ABSOLUTE LYMPHOCYTES (AUTO) 3.3 10^3/uL (0.5-4.7); ABSOLUTE MONOCYTES (AUTO) 0.6 10^3/uL (0.1-1.4); ABSOLUTE NEUT (AUTO) 3.7 10^3/uL (1.7-8.2); BASOPHILS % (AUTO) 0.6 % (0-2); HEMATOCRIT 37.2 % (36.0-47.0); HEMOGLOBIN 12.5 g/dL (12.0-15.5); LYMPHOCYTES % (AUTO) 41.8 % (13-45); MEAN CORPUSCULAR HGB CONC 33.5 g/dL (32.0-36.0); MEAN CORPUSCULAR VOLUME 87 fl (80-97); MONOCYTES % (AUTO) 7.8 % (3-13); PLATELET COUNT 312 10^3/uL (150-450); RED CELL DISTRIBUTION WIDTH 15.2 % (11.5-14.0); SEGMENTED NEUTROPHILS % (AUTO) 46.8 % (42-78); TOTAL CELLS COUNTED % (AUTO) 100 %; WHITE BLOOD COUNT 7.8 10^3/uL (4.0-10.5)
--- NOTE | 2020-05-24 00:46 | RADIOLOGY REPORT (SQ) ---
EXAM DESCRIPTION: X-ray right shoulder, 3 views COMPLETED DATE/TME: 05/23/2020 23:23 CLINICAL HISTORY: 30 years, Female, injury COMPARISON: None. NUMBER OF VIEWS: TECHNIQUE: LIMITATIONS: None. FINDINGS: No fracture or dislocation. The acromioclavicular joint appears intact. Mineralization of bone appears normal. IMPRESSION: No fracture or dislocation. copyright 2010 [employer]- All Rights Reserved
[2020-05-24 01:11] LABS: ALBUMIN 4.4 g/dL (3.5-5.0); ALKALINE PHOSPHATASE 83 U/L (38-126); ANION GAP 10 (5-19); ASPARTATE AMINO TRANSFERASE 35 U/L (14-36); BILIRUBIN,TOTAL 0.6 mg/dL (0.2-1.3); BLOOD UREA NITROGEN 6 mg/dL (7-20); CALCIUM 9.4 mg/dL (8.4-10.2); CARBON DIOXIDE 26 mmol/L (22-30); CHLORIDE 104 mmol/L (98-107); GLUCOSE 92 mg/dL (75-110); POTASSIUM 3.7 mmol/L (3.6-5.0); TOTAL PROTEIN 7.3 g/dL (6.3-8.2)
[2020-05-24] MEDS ORDERED: HYDROCODONE/ACETAMINOPHEN 5-325 MG TABLET PO ONE (01:24)
[2020-05-24] MEDS ORDERED: ONDANSETRON 4 MG TAB.RAPDIS PO ONE (01:24)
[2020-05-24] MEDS ORDERED: HYDROCODONE/ACETAMINOPHEN 5-325 MG (6 TAB/ER DISP) PO PRN (01:24)
[2020-05-24] MEDS ORDERED: ONDANSETRON ODT 4 MG TAB (6 TAB/ER DISP) PO PRN (01:24)
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
[2020-05-24 02:14] VITALS: BP 112/70
== END 2020-05-24 02:15 | disposition home or self-care (01) ==
LOC: ER 20:29
DX: S40.011A Contusion of right shoulder, initial encounter (principal); M25.511 Pain in right shoulder; W19.XXXA Unspecified fall, initial encounter; I49.8 Other specified cardiac arrhythmias; R55 Syncope and collapse; J02.9 Acute pharyngitis, unspecified; F12.10 Cannabis abuse, uncomplicated; Z20.818 Contact with and (suspected) exposure to other bacterial communicable diseases
CPT/HCPCS: 93005; 99285; 96361; 96374; 36415; 87070; 87880; 85025; 80053; 73030; 93010; A9270 ×4; J1885; J7120; S0119

== ENCOUNTER 2020-09-08 08:18 | Emergency (ER) | payer MEDICARE, MEDICAID ==
[2020-09-08] MEDS ORDERED: NORMAL SALINE 1000 ML 1,000 ML IV ONE (10:05)
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
[2020-09-08] MEDS ORDERED: PROMETHAZINE HCL 25 MG TABLET PO ONE (11:04)
[2020-09-08] MEDS ORDERED: METRONIDAZOLE 500 MG TABLET PO ONE (11:04)
[2020-09-08] MEDS ORDERED: AZITHROMYCIN 250 MG TABLET PO ONE (11:04)
[2020-09-08] MEDS ORDERED: CEFTRIAXONE INJ 250 MG VIAL IM ONE (11:04)
[2020-09-08] MEDS ORDERED: LIDOCAINE 1% INJ-PF (10 MG/ML) 30 ML SDV INJ ONE (11:04)
[2020-09-08] MEDS ORDERED: ACETAMINOPHEN 325 MG TABLET PO ONE (11:06)
[2020-09-08 11:21] LABS: ABSOLUTE BASOPHILS # (AUTO) 0.1 10^3/uL (0.0-0.2); ABSOLUTE EOSINOPHILS # (AUTO) 0.3 10^3/uL (0.0-0.6); ABSOLUTE LYMPHOCYTES (AUTO) 1.9 10^3/uL (0.5-4.7); ABSOLUTE MONOCYTES (AUTO) 0.5 10^3/uL (0.1-1.4); ABSOLUTE NEUT (AUTO) 3.7 10^3/uL (1.7-8.2); BASOPHILS % (AUTO) 0.9 % (0-2); EOSINOPHILS % (AUTO) 5.3 % (0-6); HEMATOCRIT 37.8 % (36.0-47.0); HEMOGLOBIN 12.5 g/dL (12.0-15.5); LYMPHOCYTES % (AUTO) 29.7 % (13-45); MEAN CORPUSCULAR HEMOGLOBIN 28.4 pg (27.0-33.4); MEAN CORPUSCULAR VOLUME 86 fl (80-97); MONOCYTES % (AUTO) 7.2 % (3-13); PLATELET COUNT 376 10^3/uL (150-450); RED BLOOD COUNT 4.39 10^6/uL (3.72-5.28); RED CELL DISTRIBUTION WIDTH 13.6 % (11.5-14.0); SEGMENTED NEUTROPHILS % (AUTO) 56.9 % (42-78); TOTAL CELLS COUNTED % (AUTO) 100 %; WHITE BLOOD COUNT 6.6 10^3/uL (4.0-10.5)
[2020-09-08 11:51] LABS: ALBUMIN 4.3 g/dL (3.5-5.0); ALKALINE PHOSPHATASE 88 U/L (38-126); ANION GAP 8 (5-19); ASPARTATE AMINO TRANSFERASE 29 U/L (14-36); BILIRUBIN,DIRECT 0.2 mg/dL (0.0-0.4); BILIRUBIN,TOTAL 0.4 mg/dL (0.2-1.3); BLOOD UREA NITROGEN 10 mg/dL (7-20); CALCIUM 9.3 mg/dL (8.4-10.2); CARBON DIOXIDE 28 mmol/L (22-30); CHLORIDE 102 mmol/L (98-107); GLUCOSE 81 mg/dL (75-110); POTASSIUM 3.9 mmol/L (3.6-5.0); TOTAL PROTEIN 7.1 g/dL (6.3-8.2)
[2020-09-08 12:16] LABS: T.VAGINALIS (WET MOUNT) NO TRICHOMONAS SEEN; YEAST (WET MOUNT) NO YEAST SEEN
[2020-09-08 12:17] LABS: BACTERIA (WET MOUNT) 4+ BACTERIA SEEN; EPITHELIALS (WET MOUNT) 3+ EPITHELIALS SEEN; WBCS (WET MOUNT) RARE WBCS SEEN
[2020-09-08 13:31] VITALS: BP 112/83
[2020-09-08 16:07] LABS: CHLAM PCR NOT DETECTED (NOT DETECT)
== END 2020-09-08 13:10 | disposition home or self-care (01) ==
LOC: ER 08:18
DX: Z04.41 Encounter for examination and observation following alleged adult rape (principal); S10.93XA Contusion of unspecified part of neck, initial encounter; Y04.8XXA Assault by other bodily force, initial encounter
CPT/HCPCS: 99284; 96372; 96360; 36415; 87210; 85025; 81025; 86592; 80053; 86701; 87491; 87591; A9270 ×4; J3490; J7030; J0696

== ENCOUNTER 2020-09-09 13:31 | Emergency (ER) | payer MEDICARE, MEDICAID ==
[2020-09-09] MEDS ORDERED: NORMAL SALINE 1000 ML 1,000 ML IV ONE (14:26)
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
[2020-09-09 15:29] LABS: ABSOLUTE BASOPHILS # (AUTO) 0.1 10^3/uL (0.0-0.2); ABSOLUTE EOSINOPHILS # (AUTO) 0.3 10^3/uL (0.0-0.6); ABSOLUTE LYMPHOCYTES (AUTO) 2.6 10^3/uL (0.5-4.7); ABSOLUTE MONOCYTES (AUTO) 0.4 10^3/uL (0.1-1.4); ABSOLUTE NEUT (AUTO) 3.4 10^3/uL (1.7-8.2); EOSINOPHILS % (AUTO) 5.2 % (0-6); HEMATOCRIT 40.5 % (36.0-47.0); HEMOGLOBIN 13.4 g/dL (12.0-15.5); LYMPHOCYTES % (AUTO) 38.2 % (13-45); MEAN CORPUSCULAR HEMOGLOBIN 28.6 pg (27.0-33.4); MEAN CORPUSCULAR VOLUME 87 fl (80-97); MONOCYTES % (AUTO) 5.6 % (3-13); PLATELET COUNT 398 10^3/uL (150-450); RED BLOOD COUNT 4.68 10^6/uL (3.72-5.28); RED CELL DISTRIBUTION WIDTH 13.6 % (11.5-14.0); TOTAL CELLS COUNTED % (AUTO) 100 %; WHITE BLOOD COUNT 6.8 10^3/uL (4.0-10.5)
[2020-09-09 15:47] LABS: ANION GAP 9 (5-19); BLOOD UREA NITROGEN 10 mg/dL (7-20); CALCIUM 9.2 mg/dL (8.4-10.2); CARBON DIOXIDE 27 mmol/L (22-30); CHLORIDE 103 mmol/L (98-107); GLUCOSE 78 mg/dL (75-110); POTASSIUM 3.9 mmol/L (3.6-5.0)
[2020-09-09 15:49] LABS: ALCOHOL < 10 mg/dL (NONE DETECTED)
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
[2020-09-09] MEDS ORDERED: BUSPIRONE HCL 10 MG TABLET PO ONE (17:46)
[2020-09-09 18:16] LABS: URINE AMPHETAMINES SCREEN NEGATIVE; URINE BARBITURATES SCREEN NEGATIVE; URINE BENZODIAZEPINES SCREEN NEGATIVE; URINE COCAINE SCREEN NEGATIVE; URINE MARIJUANA (THC) SCREEN NEGATIVE; URINE METHADONE SCREEN NEGATIVE; URINE PHENCYCLIDINE SCREEN NEGATIVE
--- NOTE | 2020-09-09 18:41 | PSYCHOLOGICAL NOTE ---
Psych Note - Psych Note Date seen by psych provider: 09/09/20 Time seen by psych provider: 15:30 Psych Note: Reason for Consult: Consent Permissions: Patient arrived to [facility] ED via Clinical Presentation: IVC Criteria per [place] GS 122C Dangerous to others Within the relevant past the individual No has inflicted or attempted to inflict or threatened to inflict serious bodily harm on another AND No that there is a reasonable probability that this conduct will be repeated as there is an absence of supervision or structure to prevent. OR No has acted in such a way as to create a substantial risk of serious bodily harm to another AND No that there is a reasonable probability that this conduct will be repeated as there is an absence of supervision or structure to prevent. OR No has engaged in extreme destruction of property AND NO that there is a reasonable probability that this conduct will be repeated as there is an absence of supervision or structure to prevent. Previous episodes of dangerousness to others, when applicable, may be considered when determining reasonable probability of future dangerous conduct. Clear, cogent, and convincing evidence that an individual has committed a homicide in the relevant past is prima facie evidence of dangerousness to others. Dangerous to self Within the relevant past the individual has done any of the following: acted in such a way as to show ALL of the following: No The individual would be unable without care, supervision, and the continued assistance of others not otherwise available, to exercise self- control, judgment, and discretion in the conduct of the individual's daily responsibilities and social relations or to satisfy the individual's need for nourishment, personal or medical care, longterm, or self-protection and safety. AND No There is a reasonable probability of the individual suffering serious physical debilitation within the near future unless adequate treatment is given. A showing of behavior that is grossly irrational, of actions that the individual is unable to control, of behavior that is grossly inappropriate to the situation, or of other evidence of severely impaired insight and judgment shall create a prima facie inference that the individual is unable to care for himself or herself. OR yes has attempted suicide or threatened suicide AND No that there is a reasonable probability of suicide unless adequate treatment is given as there is an absence of supervision or structure to prevent suicide of patient who has made an attempt, serious gesture or threat. OR yes has mutilated himself or herself or attempted to mutilate himself or herself AND No that there is a reasonable probability of serious self-mutilation unless adequate treatment is given as there is an absence of supervision or structure to prevent. Patient engaged in maladaptive cutting NOTE: Previous episodes of dangerousness to self, when applicable, may be considered when determining reasonable probability of physical debilitation, suicide, or self-mutilation. Medication recommendations per [facility] contracted psychiatrist are as follows: Impression\plan: Patient is Dr. Mack was consulted to care management of this patient; attending physicians in agreement with recommendations and disposition. Case management:
[2020-09-09 19:32] VITALS: BP 112/69
== END 2020-09-09 19:32 | disposition home or self-care (01) ==
LOC: ER 13:31
DX: S61.519A Laceration without foreign body of unspecified wrist, initial encounter (principal); X78.8XXA Intentional self-harm by other sharp object, initial encounter; M79.18 Myalgia, other site; F43.10 Post-traumatic stress disorder, unspecified; F12.10 Cannabis abuse, uncomplicated
CPT/HCPCS: 99285; 96360; 36415; 80307 ×2; 85025; 80048; A9270; J7030

== ENCOUNTER 2020-09-19 11:38 | Emergency (ER) | payer MEDICARE, MEDICAID ==
[2020-09-19] MEDS ORDERED: NORMAL SALINE 1000 ML 1,000 ML IV ONE (12:15)
[2020-09-19 12:40] LABS: ABSOLUTE BASOPHILS # (AUTO) 0.1 10^3/uL (0.0-0.2); ABSOLUTE EOSINOPHILS # (AUTO) 0.3 10^3/uL (0.0-0.6); ABSOLUTE LYMPHOCYTES (AUTO) 3.4 10^3/uL (0.5-4.7); ABSOLUTE MONOCYTES (AUTO) 0.5 10^3/uL (0.1-1.4); ABSOLUTE NEUT (AUTO) 3.6 10^3/uL (1.7-8.2); EOSINOPHILS % (AUTO) 3.8 % (0-6); HEMATOCRIT 35.3 % (36.0-47.0); HEMOGLOBIN 11.9 g/dL (12.0-15.5); LYMPHOCYTES % (AUTO) 43.1 % (13-45); MEAN CORPUSCULAR HEMOGLOBIN 28.9 pg (27.0-33.4); MEAN CORPUSCULAR HGB CONC 33.6 g/dL (32.0-36.0); MEAN CORPUSCULAR VOLUME 86 fl (80-97); MONOCYTES % (AUTO) 6.2 % (3-13); PLATELET COUNT 400 10^3/uL (150-450); RED CELL DISTRIBUTION WIDTH 13.9 % (11.5-14.0); SEGMENTED NEUTROPHILS % (AUTO) 45.9 % (42-78); TOTAL CELLS COUNTED % (AUTO) 100 %; WHITE BLOOD COUNT 7.8 10^3/uL (4.0-10.5)
[2020-09-19 12:52] LABS: ALBUMIN 4.2 g/dL (3.5-5.0); ALKALINE PHOSPHATASE 86 U/L (38-126); ANION GAP 8 (5-19); ASPARTATE AMINO TRANSFERASE 36 U/L (14-36); BILIRUBIN,TOTAL 0.6 mg/dL (0.2-1.3); BLOOD UREA NITROGEN 9 mg/dL (7-20); CALCIUM 9.4 mg/dL (8.4-10.2); CARBON DIOXIDE 26 mmol/L (22-30); CHLORIDE 102 mmol/L (98-107); GLUCOSE 90 mg/dL (75-110); POTASSIUM 3.9 mmol/L (3.6-5.0); TOTAL PROTEIN 7.1 g/dL (6.3-8.2)
[2020-09-19 14:07] LABS: APPEARANCE,URINE SLIGHTLY-CLOUDY; BILIRUBIN,URINE NEGATIVE (NEGATIVE); COLOR,URINE YELLOW; GLUCOSE, URINE NEGATIVE (NEGATIVE); KETONES,URINE NEGATIVE (NEGATIVE); PROTEIN,URINE 30 mg/dL (NEGATIVE); URINE SPECIFIC GRAVITY 1.024
[2020-09-19] MEDS ORDERED: RINGERS SOLUTION,LACTATED 1,000 ML IV ONE (16:50)
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
[2020-09-19 17:50] VITALS: BP 133/71
--- NOTE | 2020-09-20 00:18 | EKG REPORT ---
SEVERITY:- NORMAL ECG - SINUS RHYTHM : Confirmed by: Bharathi Bhat 20-Sep-2020 00:17:57
== END 2020-09-19 18:08 | disposition home or self-care (01) ==
LOC: ER 11:38
DX: R55 Syncope and collapse (principal); I49.8 Other specified cardiac arrhythmias; Z88.6 Allergy status to analgesic agent; Z98.84 Bariatric surgery status
CPT/HCPCS: 99284; 96360; 96361; 36415; 87040; 85025; 80053; 81001; 93005; 93010; J7030; J7120; J1642

== ENCOUNTER 2020-10-21 19:35 | Emergency (ER) | payer OTHER, MEDICARE ==
[2020-10-21 19:46] VITALS: BP 118/78
== END 2020-10-21 21:41 | disposition left against medical advice (07) ==
LOC: ER 19:35
DX: Z53.21 Procedure and treatment not carried out due to patient leaving prior to being seen by health care provider (principal)